=== PATIENT | male | born 1980 | race Caucasian/White ===

== ENCOUNTER 2020-10-27 14:42 | Outpatient (REF) | payer BC, SELFPAY ==
[2020-10-27 15:47] LABS: Blood Urea Nitrogen 18 mg/dL (9-16); Estimated Glomerular Filt Rate > 60
[2020-10-27 16:33] LABS: Erythrocyte Sedimentation Rate 5 MM/HR (0-15)
[2020-10-28 09:21] LABS: Lyme Abs Screen <0.90 index
== END 2020-10-27 14:43 | disposition home or self-care (01) ==
LOC: HO.LAB 14:42
PROVIDERS: Absent Provider Psychiatry & Neurology Neurology; PCP Internal Medicine; Visit Provider Internal Medicine
DX: G37.9 Demyelinating disease of central nervous system, unspecified (principal)
CPT/HCPCS: 36415; 82565; 84520; 85652; 86618

== ENCOUNTER → 2021-09-21 15:39 | Outpatient (REF) | payer BC, SELFPAY ==
--- NOTE | 2021-09-21 15:50 | ECG_ITS ---
Test Reason : chest pain Blood Pressure : / mmHG Vent. Rate : 060 BPM Atrial Rate : 060 BPM P-R Int : 160 ms QRS Dur : 102 ms QT Int : 382 ms P-R-T Axes : 065 078 061 degrees QTc Int : 382 ms Normal sinus rhythm Normal ECG No previous ECGs available Referred By: April Carroll Electronically Signed By:Dwaine Wang
== END ==
LOC: HO.CARD 15:39
PROVIDERS: PCP Internal Medicine; Visit Provider Nurse Practitioner Family
DX: R07.89 Other chest pain (principal)
CPT/HCPCS: 93005

== ENCOUNTER 2021-10-06 13:53 | Outpatient (REF) | payer BC, SELFPAY ==
--- NOTE | ~2021-10-06 | XR_ITS ---
EXAMINATION: XR hand RT min 3V CLINICAL INFORMATION: Pain COMPARISON: None TECHNIQUE: 3 views of the hand XR/XR hand RT min 3V FINDINGS/IMPRESSION: No fracture or dislocation. Joint spaces are maintained. No cortical erosion. Soft tissues are unremarkable.
== END 2021-10-06 13:54 | disposition home or self-care (01) ==
LOC: HO.XRAY 13:53
PROVIDERS: PCP Internal Medicine; Visit Provider Internal Medicine
DX: M79.641 Pain in right hand (principal)
CPT/HCPCS: 73130

== ENCOUNTER → 2021-11-02 07:54 | Outpatient (REF) | payer BC, SELFPAY ==
--- NOTE | 2021-11-02 07:58 | CA_ITS ---
Acquisition Time: 2021-11-02 07:57:47 Total Exercise Time: 00:12:00 Test Indications: Chest Pain Medications: LISINOPRIL Protocol: ERROL Max HR: 155 BPM 87% of Pred: 178 BPM Max BP: 190/088 mmHG Max Work Load: 13.4 METS Exercise stress test with exercise 12 min of errol protocol, achieving 87% MPHR, without anginal symptoms, without arrythmia, with normotensive response to exercise, without EKG changes meeting criteria for ischemia. There is nonspecific T wave abnormality in aVL only in recovery. Test reviewed with Dr Wang Referred By: April Carroll Overread By: AZUL JESUS
== END ==
LOC: HO.CARD 07:54
PROVIDERS: Visit Provider Nurse Practitioner Family
DX: R07.89 Other chest pain (principal)
CPT/HCPCS: 93017

== ENCOUNTER → 2021-11-11 13:58 | Outpatient (REF) | payer BC, SELFPAY ==
--- NOTE | 2021-11-11 14:06 | CA_ITS ---
Transthoracic Echocardiogram Patient (Last, First, Middle): Brandon Carreon M Gender: Male Date of : 1980 Age: 41 Procedure Date: 11/11/2021 Procedure Type: Transthoracic Echocardiogram Location: OP Height: 177.8 cm Weight: 90.72 kg BSA: 2.09 m2 Heart Rate: bpm BP: 144 / 88 mmHg Ripsawyer: LORETA Referring MD: April VALLADARES Symptoms: R01.1 - Cardiac murmur, unspecified Study Quality: Good ECG Rhythm: Sinus Conclusions: - The left ventricular systolic function is normal. The calculated ejection fraction is 67% by biplane method. - No obvious valvular pathology seen on this study. Findings Left Ventricle Normal left ventricular cavity size. There is normal left ventricular wall thickness. The left ventricular systolic function is normal. The calculated ejection fraction is 67% by biplane method. There is no evidence of regional wall motion abnormalities. Diastolic function is normal for age. Right Ventricle Normal right ventricular cavity size and systolic function. Atria Both atria are normal in size. Aortic Valve There is a normal trileaflet aortic valve. There is no aortic valve stenosis. There is no aortic valve regurgitation. Mitral Valve The mitral valve appears normal. There is no mitral valve regurgitation. There is no mitral valve stenosis. Pulmonic Valve The pulmonic valve was not well visualized. Tricuspid Valve Normal tricuspid valve structure. There is trace tricuspid valve regurgitation. The pulmonary artery systolic pressure is normal. Great Vessels The aortic annulus, sinuses of valsalva, and asc aorta are normal in size. Venous The inferior vena cava is normal in size and collapses greater than 50% with inspiration. Pericardium/Pleural There is no evidence of pericardial effusion. Prior Study Comparison No prior study available for comparison. Recommendations, Care & Conclusions No obvious valvular pathology seen on this study. Measurements 2D Linear Measurements IVSd: 0.95 0.6-0.9/0.6-1.0 cm LVIDd: 4.49 3.9-5.3/4.2-5.9 cm LVIDd Index: 2.15 2.4-3.2/2.2-3.1 cm/m2 LVIDs: 2.20 2.0-3.6 cm LVPWd: 0.98 0.7-1.1 cm LA Diam: 4.00 2.7-3.8/3.0-4.0 cm LAIDs Index: 1.91 1.5-2.3 cm/m2 LV Mass: 282.83 67-162/88-224 g LV Mass Index: 135.32 43-95/49-115 g/m2 LVOT Diam: 2.20 3.0+(-)1.3 cm 2D Systolic Function EF 4C: 68.10 >55% EF 2C: 65.60 >55% EF BiP: 67.40 >55% Mitral Valve MV Pk E: 0.86 MV PK A: 0.77 MV Decel Time: 235.00 E/A: 1.10 E'Lateral: 14.40 E'Medial: 6.31 E/E' Med: 13.70 E/E' Lat: 6.00 PHT: 69.00 MVA PHT: 3.19 Decel Stephenson: 3.67 Aortic Valve AoV Pk William: 1.81 AoV Mn William: 1.22 AoV VTI: 0.31 AoV Pk Grad: 13.00 Aov Mn Grad: 7.00 HASEEB Cont.VTI: 3.78 LVOT LVOT Pk William: 1.60 LVOT Mn William: 1.03 LVOT VTI: 0.31 LVOT Pk Grad: 10.00 LVOT Mn Grad: 5.00 LVOT Diam: 2.20 LVOT Area: 3.80 Diastolic Function MV Pk E: 0.86 MV Pk A: 0.77 E/A: 1.10 E'Medial: 6.31 E/E' Med: 13.70 E' Laterial: 14.40 E/E' Lat: 6.00 Right Ventricle TAPSE (mm): 24.40 TVS' William: 14.10 Tricuspid Valve TR Pk William: 1.26 TR Pk Grad: 6.00 RA Press: 3.00 RVSP: 9.00 Great Vessels Aorta Sinus of Valsalva: 3.59 2.0-3.[address] Ridge: 3.05 1.7-3.4 cm Ao Asc: 3.50 2.1-3.4 cm Updated in Other Vendor System with Status of Final Agustín Kevin MD electronically signed on 11/13/2021 12:19:58 PM with status of Final
== END ==
LOC: HO.CARD 13:58
PROVIDERS: Visit Provider Nurse Practitioner Family
DX: R01.1 Cardiac murmur, unspecified (principal)
CPT/HCPCS: 93306

== ENCOUNTER 2022-07-20 15:55 | Outpatient (REF) | payer BC, SELFPAY ==
[2022-07-20 16:10] LABS: MANUAL DIFF FLAG NO
[2022-07-20 17:24] LABS: Basophils Percent Auto 0.6 % (0-2); Eosinophils Absolute Auto 0.1 X10*3/uL (0.0-0.4); Eosinophils Percent Auto 1.6 % (0-4); Hemoglobin 15.5 g/dl (14.0-18.0); Imm Gran Abs Auto 0.02 X10*3/uL (0.00-0.03); Imm Gran Pct Auto 0.3 % (0.0-0.4); Lymphocytes Absolute Auto 3.1 X10*3/uL (1.2-4.9); Lymphocytes Percent Auto 44.4 % (20-40); Mean Corpuscular HGB Conc 35.2 g/dl (31.0-36.0); Mean Corpuscular Hemoglobin 31.8 pg (27.0-33.0); Mean Corpuscular Volume 90.2 fL (80.0-98.0); Mean Platelet Volume 10.3 fL (9.4-12.4); Monocytes Absolute Auto 0.6 X10*3/uL (0.1-1.2); Monocytes Percent Auto 9.1 % (2-11); Neutrophils Absolute Auto 3.1 x10*3/uL (2.0-8.3); Platelet Count 232 X10*3/uL (160-400); Red Blood Count 4.88 X10*6/uL (4.60-5.80); Red Cell Distribution Width 12.6 % (11.0-16.0); White Blood Count 6.9 X10*3/uL (4.8-10.8)
[2022-07-20 18:10] LABS: Alanine Aminotransferase 164 U/L (0-40); Albumin Level 5.1 g/dL (3.5-5.0); Alkaline Phosphatase 67 U/L (39-117); Anion Gap 12 (12-20); Aspartate Amino Transferase 75 U/L (5-37); Bilirubin Total 1.4 mg/dL (0.0-1.0); Blood Urea Nitrogen 20 mg/dL (9-16); Carbon Dioxide 29 mmol/L (22-29); Chloride 102 mmol/L (96-108); Cholesterol 135 mg/dL; Estimated Glomerular Filt Rate > 60; Glucose Fasting 75 mg/dL (60-99); HDL Cholesterol 43 mg/dL; LDL Cholesterol Calculated 78 mg/dl; Potassium 4.4 mmol/L (3.3-5.1); Sodium 139 mmol/L (135-145); TSH reflex Free T4 0.89 uIU/mL (0.32-4.0); Total Protein 7.6 g/dL (6.5-8.0); Triglycerides 70 mg/dL; Vitamin D 25-OH Total 23.4 ng/mL (>30)
[2022-07-20 18:22] LABS: Folate 14.4 ng/mL (> or = 4.0); Vitamin B12 572 pg/mL (200-900)
== END 2022-07-20 15:56 | disposition home or self-care (01) ==
LOC: HO.LAB 15:55
PROVIDERS: PCP Internal Medicine; Visit Provider Nurse Practitioner Family
DX: I10 Essential (primary) hypertension (principal); R07.89 Other chest pain; Z13.29 Encounter for screening for other suspected endocrine disorder; Z13.220 Encounter for screening for lipoid disorders
CPT/HCPCS: 36415; 80053; 80061; 82306; 82607; 82746; 84443; 85025

== ENCOUNTER 2022-07-22 16:12 | Outpatient (REF) | payer BC, SELFPAY ==
[2022-07-25 08:03] LABS: HBc Num1 0.07 S/CO (0.00-0.79); HBsAGNum1 0.28 S/CO (0.00-0.99); Hepatitis A Antibody IgM 0.14 Index (0-0.79); Hepatitis B Core Antibody Nonreactive (Nonreactive); Hepatitis B Surface Antigen Negative (Negative); ~HepC Num1 0.07 S/CO (0.00-0.79); ~Hepatitis A Antibody IgM Nonreactive (Nonreactive); ~Hepatitis B Surface Antibody NONREACTIVE (Nonreactive); ~Hepatitis C Antibody Nonreactive (Nonreactive)
== END 2022-07-22 16:13 | disposition home or self-care (01) ==
LOC: HO.LAB 16:12
PROVIDERS: PCP Internal Medicine; Visit Provider Nurse Practitioner Family
DX: R79.89 Other specified abnormal findings of blood chemistry (principal)
CPT/HCPCS: 36415; 82306; 86704; 86706; 86709; 86803; 87340

== ENCOUNTER 2022-08-22 08:27 | Outpatient (REF) | payer BC, SELFPAY ==
--- NOTE | ~2022-08-22 | US_ITS ---
EXAMINATION: US ABDOMEN LIMITED CLINICAL INFORMATION: Other specified abnormal findings of blood chemistry. COMPARISON: CT abdomen and pelvis with contrast 07/14/2019. TECHNIQUE: Real-time imaging of the right upper quadrant abdominal viscera. FINDINGS: PANCREAS: Obscured by bowel gas LIVER: The liver is normal in size. The liver contour is normal. Diffuse increased parenchymal echogenicity. Focal fatty sparing around the gallbladder. No focal hepatic lesion. There is no intrahepatic biliary duct dilatation seen. GALLBLADDER: The gallbladder is physiologically distended without evidence of stones, sludge, polyps, wall thickening or pericholecystic fluid. COMMON BILE DUCT: Normal in caliber measuring 0.3 cm in diameter. RIGHT KIDNEY: Normal. No hydronephrosis. No renal calculi or focal parenchymal lesions. The kidney measures 13.2 cm in maximum dimension. FREE FLUID: None. US/US abdomen limited IMPRESSION: 1. There is generalized increase in hepatic echotexture, consistent with fatty infiltration or hepatocellular disease. Please correlate clinically. Focal fatty sparing adjacent to gallbladder fossa. No focal hepatic mass or intrahepatic biliary duct dilatation is seen. 2. Pancreas obscured by bowel gas.
== END 2022-08-22 08:28 | disposition home or self-care (01) ==
LOC: HO.HMGCX 08:27
PROVIDERS: PCP Internal Medicine; Visit Provider Nurse Practitioner Family
DX: R79.89 Other specified abnormal findings of blood chemistry (principal)
CPT/HCPCS: 76705

== ENCOUNTER 2022-11-01 15:58 | Outpatient (REF) | payer BC, SELFPAY ==
[2022-11-01 16:17] LABS: MANUAL DIFF FLAG NO
[2022-11-01 17:11] LABS: Basophils Percent Auto 0.5 % (0-2); Eosinophils Absolute Auto 0.2 X10*3/uL (0.0-0.4); Hematocrit 43.6 % (42.0-52.0); Hemoglobin 15.3 g/dl (14.0-18.0); Imm Gran Abs Auto 0.04 X10*3/uL (0.00-0.03); Imm Gran Pct Auto 0.5 % (0.0-0.4); Lymphocytes Absolute Auto 3.2 X10*3/uL (1.2-4.9); Lymphocytes Percent Auto 41.7 % (20-40); Mean Corpuscular HGB Conc 35.1 g/dl (31.0-36.0); Mean Corpuscular Hemoglobin 32.1 pg (27.0-33.0); Mean Corpuscular Volume 91.4 fL (80.0-98.0); Mean Platelet Volume 10.7 fL (9.4-12.4); Monocytes Absolute Auto 0.7 X10*3/uL (0.1-1.2); Monocytes Percent Auto 9.1 % (2-11); Neutrophils Absolute Auto 3.5 x10*3/uL (2.0-8.3); Neutrophils Percent Auto 46.2 % (45-73); Platelet Count 212 X10*3/uL (160-400); Red Blood Count 4.77 X10*6/uL (4.60-5.80); Red Cell Distribution Width 12.8 % (11.0-16.0); White Blood Count 7.6 X10*3/uL (4.8-10.8)
[2022-11-01 17:23] LABS: Appearance Urine Clear; Color Urine Yellow; Glucose Urine UA Negative (Negative); Leukocyte Esterase Urine Negative (Negative); Nitrite Urine Negative (Negative); Specific Gravity - Urine >= 1.030 (1.005-1.025); Urine Blood Negative (Negative); Urine Ketones Negative (Negative); Urine Protein Negative (Neg-Trace)
[2022-11-01 17:28] LABS: Bacteria Urine None Seen (None Seen); Hyaline Casts Urine 0-2 /LPF (0-2); RBC Urine 0-2 /HPF (0-2); Squamous Epithelial Cell Urine 0-2 /HPF (0-2); WBC Urine 0-5 /HPF (0-5)
[2022-11-01 17:45] LABS: Alanine Aminotransferase 112 U/L (0-40); Albumin Level 4.8 g/dL (3.5-5.0); Alkaline Phosphatase 65 U/L (39-117); Anion Gap 13 (12-20); Aspartate Amino Transferase 53 U/L (5-37); Bilirubin Total 1.8 mg/dL (0.0-1.0); Blood Urea Nitrogen 15 mg/dL (9-16); Calcium 9.7 mg/dL (8.4-10.2); Carbon Dioxide 27 mmol/L (22-29); Chloride 107 mmol/L (96-108); Estimated Glomerular Filt Rate > 60; Glucose Random 71 mg/dL (60-115); Potassium 4.1 mmol/L (3.3-5.1); Sodium 143 mmol/L (135-145); Total Protein 7.3 g/dL (6.5-8.0)
[2022-11-01 17:53] LABS: Estimated Average Glucose 103 mg/dL; Hemoglobin A1c % 5.2 %
[2022-11-01 18:02] LABS: Thyroid Stimulating Hormone 1.73 uIU/mL (0.32-4.0)
== END 2022-11-01 15:59 | disposition home or self-care (01) ==
LOC: HO.LAB 15:58
PROVIDERS: PCP Internal Medicine; Visit Provider Internal Medicine
DX: G62.9 Polyneuropathy, unspecified (principal); K76.0 Fatty (change of) liver, not elsewhere classified; I10 Essential (primary) hypertension; R73.9 Hyperglycemia, unspecified
CPT/HCPCS: 36415; 80053; 81001; 83036; 84443; 85025

== ENCOUNTER 2022-12-19 09:41 | Outpatient (REF) | payer BC, SELFPAY ==
--- NOTE | ~2022-12-19 | US_ITS ---
EXAMINATION: US ABDOMEN COMPLETE CLINICAL INFORMATION: Left upper quadrant pain. Fatty liver. COMPARISON: Limited abdominal ultrasound 08/22/2022. CT abdomen and pelvis 07/14/2019. TECHNIQUE: Real-time imaging of the abdominal viscera. FINDINGS: PANCREAS: Normal. ABDOMINAL AORTA: The proximal, mid, and distal segments are normal in caliber. INFERIOR VENA CAVA: Visualized portions are normal. LIVER: The liver is normal in size. The liver contour is normal. Liver echotexture is increased probably representing fatty infiltration. No focal hepatic lesion. There is no intrahepatic biliary duct dilatation seen. GALLBLADDER: Normal. The gallbladder is physiologically distended without evidence of stones, sludge, polyps, wall thickening or pericholecystic fluid. COMMON BILE DUCT: Normal in caliber measuring 0.4 cm in diameter. RIGHT KIDNEY: Normal. No hydronephrosis. No renal calculi or focal parenchymal lesions. The kidney measures 13.2 cm in maximum dimension. LEFT KIDNEY: Normal. No hydronephrosis. No renal calculi or focal parenchymal lesions. The kidney measures 13.1 cm in maximum dimension. SPLEEN: The spleen is slightly enlarged. The spleen measures 15.1 cm in maximum dimension. FREE FLUID: None. US/US abdomen complete IMPRESSION: Slightly enlarged spleen. Echogenic liver probably representing fatty infiltration.
== END 2022-12-19 09:42 | disposition home or self-care (01) ==
LOC: HO.HMGCX 09:41
PROVIDERS: PCP Internal Medicine; Visit Provider Internal Medicine
DX: R10.12 Left upper quadrant pain (principal)
CPT/HCPCS: 76700

== ENCOUNTER → 2023-02-08 13:59 | Outpatient (BNVA) | payer BC, SELFPAY | PROVIDERS: PCP Internal Medicine; Visit Provider Internal Medicine ==

== ENCOUNTER 2023-02-10 11:30 | Outpatient (REF) | payer BC, SELFPAY ==
[2023-02-10 11:59] LABS: Prothrombin Time 11.3 SEC (10.0-13.1)
[2023-02-10 12:46] LABS: Iron 148 mcg/dL (45-160); Lactate Dehydrogenase 250 U/L (118-273); Percent Iron Saturation 49 % (15-50); Total Iron Binding Capacity 299 mcg/dL (228-428); Unsaturated Iron Binding 151 ug/dL
[2023-02-10 12:53] LABS: Ferritin 879 ng/mL (20-250)
[2023-02-13 15:04] LABS: Immunoglobulin A 239 mg/dL (47-310); Immunoglobulin G 897 mg/dL (600-1640)
[2023-02-13 21:09] LABS: Transglutaminase IgA <1.0 U/mL
[2023-02-14 13:59] LABS: Liver Kidney Microsomal Ab <=20.0 U (<=20.0); Smooth Muscle Antibody <20 U (<20)
[2023-02-16 13:23] LABS: Aldolase 11.5 U/L (<=8.1)
[2023-02-16 20:48] LABS: CK-BB None Detected (None Detected); CK-MB 0 % (<5); CK-MM 100 % (95-100); Creatine Kinase,Total,Serum 179 U/L (44-196)
[2023-02-22 09:28] LABS: Phosphatidylethanol 16:0-18:1 20 (H)
== END 2023-02-10 11:31 | disposition home or self-care (01) ==
LOC: HO.LAB 11:30
PROVIDERS: PCP Internal Medicine; Visit Provider Internal Medicine
DX: R79.89 Other specified abnormal findings of blood chemistry (principal)
CPT/HCPCS: 36415; 80321; 82085; 82552; 82728; 82784; 83540; 83615; 85610; 86015; 86364; 86376

== ENCOUNTER 2023-03-03 12:00 | Outpatient (REF) | payer BC, SELFPAY | END 2023-03-03 12:01 | disposition home or self-care (01) | LOC: HO.LAB 12:00 | PROVIDERS: Visit Provider Internal Medicine | DX: R79.89 Other specified abnormal findings of blood chemistry (principal) | CPT/HCPCS: 36415; 81256 ==

== ENCOUNTER 2023-03-24 16:26 | Outpatient (REF) | payer BC, SELFPAY ==
[2023-03-24 17:36] LABS: Alanine Aminotransferase 160 U/L (0-40); Albumin Level 4.8 g/dL (3.5-5.0); Alkaline Phosphatase 61 U/L (39-117); Anion Gap 12 (12-20); Aspartate Amino Transferase 69 U/L (5-37); Bilirubin Total 1.3 mg/dL (0.0-1.0); Blood Urea Nitrogen 16 mg/dL (9-16); Calcium 10.1 mg/dL (8.4-10.2); Carbon Dioxide 27 mmol/L (22-29); Chloride 108 mmol/L (96-108); Estimated Glomerular Filt Rate > 60; Glucose Random 75 mg/dL (60-115); Potassium 3.7 mmol/L (3.3-5.1); Sodium 143 mmol/L (135-145); Total Protein 7.9 g/dL (6.5-8.0)
== END 2023-03-24 16:27 | disposition home or self-care (01) ==
LOC: HO.LAB 16:26
PROVIDERS: PCP Internal Medicine; Visit Provider Internal Medicine
DX: R79.89 Other specified abnormal findings of blood chemistry (principal)
CPT/HCPCS: 36415; 80053

== ENCOUNTER 2023-03-27 15:56 | Outpatient (AMB) | payer BC, SELFPAY ==
[2023-03-27 16:00] VITALS: BP 145/89; PULSE 69; BMI 33.2
--- NOTE | 2023-03-27 16:00 | A.OFFVIS_ITS ---
Intake Vital Signs 03/27/23 16:00 Height 5 ft 10 in Weight 231 lb 7.766 oz BMI 33.2 BP 145/89 H Blood Pressure Location Rt brachial Position Sitting Pulse 69 Intake Visit Reasons: 6 week fu Intake Note: Brandon presents in the office today in 6 weeks follow up offatty liver. CC: Patient continues to have LUQ abdominal pain, nausea, and occasional heartburn. Pt d/c Omeprazole as he reports he did not see any difference while taking it. Denies other GI symptoms today. 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 fatty liver and LUQ pain. 02/08/23: Pt reports having intermittent episodes of sharp well localised LUQ pain that radiates to his back. While the index episode back in Jul was trigerred by food, subsequent episodes do not appear to have a definite food related trigger. Does note it more while driving. Gets better when he stretches his torso. Was seen by urgent care for the same earlier this year but could not take pantoprazole due to insurance coverage issues. Had an EGD through Dr Knowles 2019 that showed small hiatal hernia, but no gastritis, esophagitis, quiñones's. In addition, he was also noted to have elevated LFTs with ALT>AST. Pt drinks 1- 2/month. Smokes 0.5PPD. No OTC/CAM reported apart from a multivitamin. Does report has been noticing generalised muscle weakness more in his proximal muscle groups, unable to sustain an activity for more than a few mins for e.g even just brushing his teeth makes his arm muscles very fatigued. In terms of CRC screening - high risk due to fam hx of CRC in his mom. Last colo 2019 with benign polyps, next colo to be repeated around 03/2025. 03/27/23: Results reviewed. 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 Discussed that iron studies likely being driven by fatty liver, MRI pending which is able to differentiate between steatosis vs iron overload better than US Abd. Pt continues to report intermittent LUQ pain, triggered by certain activities such as driving/holding the steering wheel for too long, eating to his fill etc. He did have an elevated aldolase and Rheum evaluation is pending. [facility] Medical History Adult general medical exam Benign essential hypertension Decreased hearing of right ear Elevated LFTs GERD (gastroesophageal reflux disease) History of intravenous drug abuse Intermittent left-sided chest pain Irritable bowel disease Obesity (BMI 30-39.9) Rash and other nonspecific skin eruption Right hand pain Right otitis media Screening for hyperlipidemia Tobacco abuse Surgical History History of colonoscopy History of esophagogastroduodenoscopy (EGD) Family History Mother Cancer Colon cancer Father High blood pressure Other Substance abuse Social History Housing: House Alcohol intake: current Alcohol intake frequency: holidays/special occasions only Patient Tobacco Use Status: Former Tobacco user Tobacco use type: Cigarette Cigarette Packs Per Day: 1 Years Smoked: 25 years of smoking e-Cigarette/Vaping Use: Never Used Second Hand Smoke Exposure: Yes service: No Current occupational status: employed Cognitive needs: No Hearing needs: No Vision needs: Yes (glasses) Review of Systems Const All systems reviewed & are unremarkable except as noted in HPI and below Physical Exam Vital Signs: Last Vital Signs Pulse 69 03/27/23 16:00 BP 145/89 H 03/27/23 16:00 BMI result Body Mass Index 33.2 Gen appear: NAD HEENT: nonicteric, no cervical lymphadenopathy Chest: CTA CVS: Regular S1/S2 Abd: soft, nontender, nondistended, bowel sounds + Ext: no peripheral edema Neuro: A/Ox3, noted to move all extremities spontaneously Psych: interacting appropriately Assessment & Plan Assessment & Plan (1) Elevated LFTs: Code(s): R79.89 - Other specified abnormal findings of blood chemistry (2) Left upper quadrant abdominal pain: Code(s): R10.12 - Left upper quadrant pain (3) Family history of colon cancer: Code(s): Z80.0 - Family history of malignant neoplasm of digestive organs Plan 1. For elevated LFTs, based on work up so far appears to be consistent with fatty liver. MRI pending Also suspicion for myositis. Aldolase elevated. RHeum eval pending. 2. LUQ pain - likely gastritis/PUD related vs MSK. No splenomegaly on exam, however this will also be reviewed further on MRI as above. Trial of omeprazole 20mg once daily x 8 weeks did not help and therefore suspect more MSK related bernadette as triggered by activity. However, will proceed with luminal evaluation as well. EGD to be booked in the next few weeks, OFF ppi. 3. CRC screening Next colo due Mar 2025. Follow up after EGD. Coding Level of Care Code Est Pt Level 4 (21026) Diagnoses Elevated LFTs R79.89 Left upper quadrant abdominal pain R10.12 Family history of colon cancer Z80.0
== END 2023-03-27 16:55 | disposition home or self-care (01) ==
PROVIDERS: PCP Internal Medicine; Visit Provider Internal Medicine
DX: R79.89 Other specified abnormal findings of blood chemistry (principal); R10.12 Left upper quadrant pain; Z80.0 Family history of malignant neoplasm of digestive organs
CPT/HCPCS: 99214

== ENCOUNTER → 2023-03-27 15:56 | Outpatient (BNVA) | payer BC, SELFPAY | PROVIDERS: PCP Internal Medicine; Visit Provider Internal Medicine ==

== ENCOUNTER 2023-04-24 12:26 | Day surgery (SDC) | payer BC, SELFPAY ==
[2023-04-20 12:29] VITALS: BMI 33.1
[2023-04-24 13:27] VITALS: BP 153/96; PULSE 58; RESP 16; TEMP 36.7; O2SAT 97
--- NOTE | 2023-04-24 13:30 | HO.ANESPROP2 ---
Documented by User: Cordelia Rangel NP 04/21/23 10:58 HPI - Anesthesia Eval Consult details Narrative: 42yo M for Upper Endoscopy PMFSH Active Problems Active Problems: All Active Problems (Updated 02/17/23 @ 17:55 by Nieves Fox MD) Myositis (Acute) Elevated ferritin (Acute) Family history of colon cancer (Acute) Left upper quadrant abdominal pain (Acute) Fatty liver (Acute) Low vitamin D level (Acute) Generalized anxiety disorder (Acute) Heart murmur (Acute) Facial neuralgia (Acute) Peripheral neuropathy (Acute) Elevated LFTs (Acute) Benign essential hypertension (Acute) Irritable bowel disease (Acute) Tobacco abuse (Acute) GERD (gastroesophageal reflux disease) (Acute) Obesity (BMI 30-39.9) (Acute) Past Medical History Medical History Elevated LFTs Rash and other nonspecific skin eruption Adult general medical exam Decreased hearing of right ear Right otitis media Benign essential hypertension Right hand pain Screening for hyperlipidemia Intermittent left-sided chest pain History of intravenous drug abuse Irritable bowel disease Tobacco abuse GERD (gastroesophageal reflux disease) Obesity (BMI 30-39.9) Family History Family History Mother Cancer Colon cancer Father High blood pressure Other Substance abuse Surgical History Surgical History History of esophagogastroduodenoscopy (EGD) History of colonoscopy Social History Social History Housing: House Alcohol intake: current Alcohol intake frequency: holidays/special occasions only Patient Tobacco Use Status: Current everyday Tobacco user Tobacco use type: Cigarette Cigarette Packs Per Day: 1 Years Smoked: 25 years of smoking e-Cigarette/Vaping Use: Never Used Second Hand Smoke Exposure: Yes Use of substances other than those prescribed or required for medical reasons: Yes Have you been hit, kicked, punched, or otherwise hurt by someone within the past year? If so, by whom?: No Are you DNR?: No Advance Directives: No Advance Directives Information Provided: Yes service: No Current occupational status: employed Cognitive needs: No Hearing needs: No Vision needs: Yes (glasses) Meds Allergies Allergy/AdvReac Type Severity Reaction Status Date / Time No Known Allergies Allergy Verified 03/27/23 16:02 Exam Exam Date and Time: April 21, 2023 1054 Height,Weight and Vital Signs: Height 5 ft 10 in Weight 104.78 kg Pertinent Lab Results Pertinent Lab Results: Laboratory Tests 11/01/22 03/24/23 16:16 16:39 WBC 7.6 Hgb 15.3 Hct 43.6 Plt Count 212 Sodium 143 Potassium 3.7 Chloride 108 Carbon Dioxide 27 BUN 16 Creatinine 0.82 Narrative Narrative: ECHO 2021 Conclusions: - The left ventricular systolic function is normal. The calculated ejection fraction is 67% by biplane method. - No obvious valvular pathology seen on this study. Exercise Stress 2021 Protocol: ERROL Max HR: 155 BPM 87% of Pred: 178 BPM Max BP: 190/088 mmHG Max Work Load: 13.4 METS Exercise stress test with exercise 12 min of errol protocol, achieving 87% MPHR, without anginal symptoms, without arrythmia, with normotensive response to exercise, without EKG changes meeting criteria for ischemia. There is nonspecific T wave abnormality in aVL only in recovery. Test reviewed with Dr Wang Assessment and Plan Assessment Anesthesia Assessment: Chart Reviewed Documented by User: Dyana Wren DO 04/24/23 13:33 [facility] Past Medical History Medical History Elevated LFTs Rash and other nonspecific skin eruption Adult general medical exam Decreased hearing of right ear Right otitis media Benign essential hypertension Right hand pain Screening for hyperlipidemia Intermittent left-sided chest pain History of intravenous drug abuse Irritable bowel disease Tobacco abuse GERD (gastroesophageal reflux disease) Obesity (BMI 30-39.9) Family History Family History Mother Cancer Colon cancer Father High blood pressure Other Substance abuse Family history of problems with anesthesia: No Surgical History Surgical History History of esophagogastroduodenoscopy (EGD) History of colonoscopy History of Problems with Anesthesia: No Social History Social History Housing: House Alcohol intake: current Alcohol intake frequency: holidays/special occasions only Patient Tobacco Use Status: Current everyday Tobacco user Tobacco use type: Cigarette Cigarette Packs Per Day: 1 Years Smoked: 25 years of smoking e-Cigarette/Vaping Use: Never Used Second Hand Smoke Exposure: Yes Use of substances other than those prescribed or required for medical reasons: Yes Have you been hit, kicked, punched, or otherwise hurt by someone within the past year? If so, by whom?: No Are you DNR?: No Advance Directives: No Advance Directives Information Provided: Yes service: No Current occupational status: employed Cognitive needs: No Hearing needs: No Vision needs: Yes (glasses) Meds Allergies Allergy/AdvReac Type Severity Reaction Status Date / Time No Known Allergies Allergy Verified 03/27/23 16:02 Exam Exam Date and Time: April 24, 2023 1330 Height,Weight and Vital Signs: Height 5 ft 10 in Weight 104.78 kg Vital Signs Temperature 98.1 F 04/24/23 13:27 Pulse Rate 58 04/24/23 13:27 Respiratory Rate 16 04/24/23 13:27 Blood Pressure 153/96 H 04/24/23 13:27 Pulse Oximetry 97 04/24/23 13:27 Oxygen Delivery Method Room Air 04/24/23 13:27 Temperature 98.1 F 04/24/23 13:27 Pulse Rate 58 04/24/23 13:27 Respiratory Rate 16 04/24/23 13:27 Blood Pressure 153/96 H 04/24/23 13:27 Pulse Oximetry 97 04/24/23 13:27 Oxygen Delivery Method Room Air 04/24/23 13:27 Airway Mallampati Class: I TM Dist: >3cm Neck ROM: Full Loose/Missing/Broken Teeth: Yes (a few missing teeth) Heart: S1S2 Lungs: CTAB Assessment and Plan Assessment Anesthesia Assessment: Anesthesia Plan Discussed and Chart Reviewed Final Anesthetic Review Family History of Problems with Anesthesia: No History of Problems with Anesthesia: No NPO: Yes ASA Class: II Final Preanesthetic Review: No Changes in Pt Med Stat, Meds/Allgs Chart Reviewed, Consent Obtained/Reviewed and Anes Risks/Benef Reviewed Patient Risk: Low Procedure Risk: Low Anesthetic Plan Anesthetic Plan: MAC: and Agree w/ Assess. and Plan Disposition: Standard PACU
[2023-04-24] MEDS: Lactated Ringers 1,000 ML 100 ML IVCONT (13:54)
--- NOTE | 2023-04-24 14:03 | PC.NURSE ---
PATIENT IS WEARING CONTACTS. OR NURSE AWARE AND DR. WILL GAVE HER PERMISSION FOR PATIENT TO WEAR HIS CONTACT LENSES DURING THE PROCEDURE.
--- NOTE | 2023-04-24 14:29 | P.OP_ITS ---
Operative Note Operative Note Date of Service: 04/24/23 Narrative: Procedure: Esophagogastroduodenoscopy Endoscopist: Nieves Fox MD Indication: Left upper quadrant pain Anesthesia Provider: Allie Mares CRNA Anesthesia Type: MAC Instrument: Olympus [id number]-[id number] ?? EGD Procedure:?? The procedure, indications, preparation and potential complications were reviewed with the patient, who indicated understanding and gave written informed consent to proceed. A physical exam was performed. The endoscope was introduced through the mouth, and advanced to the second part of duodenum. The mucosa was carefully examined on slow withdrawal of the endoscope. The patient tolerated the procedure well. There were no immediate complications.? ? EGD Findings:? * Esophagus:? Normal mucosa noted in the entire esophagus. The Z line was at 40 cm with a salmon colored tongue extending up to 38.5 and an isolated island of salmon pink mucosa measuring 0.5 cm at 37 cm. Cold forceps biopsies were taken to r/o Dixon's esophagus. The GEJ itself had some erythema and erosions measuring < 5 mm. * Stomach:? Normal mucosa was noted in the stomach. Random cold forceps gastric biopsies were taken to rule out H Pylori infection. * Duodenum:? Normal mucosa was noted in the whole of the examined duodenum. Cold forceps biopsies were taken from duodenal bulb and second portion of the duodenum to rule out celiac sprue. ? EGD Impressions:? * Grade A esophagitis * Irregular Z line (biopsy) * Normal stomach (biopsy) * Normal duodenum (biopsy) ?? Recommendations:?? * Follow biopsy results. Our office will call or send a letter with results within 7-10 days. * Continue PPI therapy. * If H pylori +, patient will be prescribed eradication therapy followed by test of cure. * Avoid NSAIDs, etOH and smoking. Above has been reviewed with the patient.
--- NOTE | 2023-04-24 14:29 | MHC.SHP ---
Pre-Procedural Eval Section A Date of Service: 04/24/23 The History & Physical has been completed within 30 days and I have reviewed it.: Yes Section B Chief Complaint: Left upper quadrant pain Allergies: Allergies Allergy/AdvReac Type Severity Reaction Status Date / Time No Known Allergies Allergy Verified 03/27/23 16:02 Plan Diagnosis/Plan: Unchanged I have reviewed the history and physical and performed a pertinent physical examination on my patient. No changes have occurred unless specified. Time Spent With Patient Time: Total time managing care of this patient today ____ minutes.
[2023-04-24 14:35] VITALS: BP 114/62; PULSE 64; RESP 18; TEMP 36.6; O2SAT 95
[2023-04-24 14:50] VITALS: BP 119/65; PULSE 56; RESP 16; O2SAT 98
[2023-04-24 15:05] VITALS: BP 138/82; PULSE 59; RESP 14; TEMP 36.1; O2SAT 99
== END 2023-04-24 15:10 | disposition home or self-care (01) ==
PROVIDERS: PCP Internal Medicine; Visit Provider Internal Medicine
PROC: 0DJ08ZZ Inspection of Upper Intestinal Tract, Via Natural or Artificial Opening Endoscopic (ICD-10-PCS; CPT 43235; principal; 2023-04-24 14:40)
DX: K20.90 Esophagitis, unspecified without bleeding (principal); K22.9 Disease of esophagus, unspecified; R10.12 Left upper quadrant pain; R79.89 Other specified abnormal findings of blood chemistry; Z80.0 Family history of malignant neoplasm of digestive organs; K21.9 Gastro-esophageal reflux disease without esophagitis; I10 Essential (primary) hypertension; K76.0 Fatty (change of) liver, not elsewhere classified; K58.9 Irritable bowel syndrome, unspecified; E66.9 Obesity, unspecified; Z68.33 Body mass index [BMI] 33.0-33.9, adult; F17.210 Nicotine dependence, cigarettes, uncomplicated; Z79.899 Other long term (current) drug therapy
CPT/HCPCS: 43239; 88305; 88342

== ENCOUNTER → 2023-04-24 12:26 | Outpatient (BNV) | payer BC, SELFPAY | PROVIDERS: PCP Internal Medicine; Visit Provider Internal Medicine | DX: R10.12 Left upper quadrant pain (principal); K20.90 Esophagitis, unspecified without bleeding | CPT/HCPCS: 43239 ==

== ENCOUNTER 2023-05-01 08:07 | Outpatient (REF) | payer BC, SELFPAY ==
--- NOTE | ~2023-05-01 | MR_ITS ---
EXAMINATION: MR ABDOMEN WITHOUT AND WITH CONTRAST CLINICAL INFORMATION: Discomfort in the left upper quadrant COMPARISON: None available. TECHNIQUE: MR abdomen was performed without and with use of 10mL intravenous Gadavist. Postcontrast images are performed in multiphase dynamic sequences. Imaging was performed in 3 planes. FINDINGS: LUNG BASES: The visualized lung bases are unremarkable. LIVER, GALLBLADDER, AND BILIARY TREE: The liver is normal in size, smooth in contour, and drops signal intensity in in phase/out of phase sequences due to hepatic steatosis . No focal hepatic lesion or biliary ductal dilatation is present. The gallbladder is unremarkable with no evidence of gallbladder wall thickening, or obvious pericholecystic inflammatory changes. PANCREAS: Unremarkable. SPLEEN: Enlarged measured 15.5 cm of normal signal intensity ADRENAL GLANDS: Normal. KIDNEYS AND URETERS: The kidneys are normal in size, shape, and enhance symmetrically. No hydronephrosis. No perinephric stranding. GASTROINTESTINAL TRACT: No bowel obstruction. No ascites or fluid collection. ABDOMINAL WALL: No significant hernia is appreciated. LYMPH NODES: No lymphadenopathy. VASCULAR: Unremarkable. OSSEOUS STRUCTURES: Marrow signal normal. MR/MR abdomen wo/w con IMPRESSION: 1. Hepatic steatosis. 2. Splenomegaly.
[2023-05-01] MEDS: gadobutroL 10 ML VIAL IVPUSH (09:45)
== END 2023-05-01 08:08 | disposition home or self-care (01) ==
LOC: HO.MRI 08:07
PROVIDERS: PCP Internal Medicine; Visit Provider Internal Medicine
DX: R79.89 Other specified abnormal findings of blood chemistry (principal)
CPT/HCPCS: 74183; A9585

== ENCOUNTER 2023-05-08 11:27 | Outpatient (AMB) | payer BC, SELFPAY ==
--- NOTE | 2023-05-08 11:28 | A.OFFVIS_ITS ---
Intake Intake Visit Reasons: s/p egd Intake Note: Brandon presents in the office as a egd follow up and MRI. CC: He states that he is not having any concerns since his procedure. More so would like results to the MRI. Allergies No Known Allergies Allergy (Verified 05/08/23 11:28) HPI HPI Comments History of Present Illness Details 42 y.o M with PMH of GERD, HTN, smoking, fam hx of CRC, who is here for ? fatty liver and LUQ pain. 02/08/23: Pt reports having intermittent episodes of sharp well localised LUQ pain that radiates to his back. While the index episode back in Jul was trigerred by food, subsequent episodes do not appear to have a definite food related trigger. Does note it more while driving. Gets better when he stretches his torso. Was seen by urgent care for the same earlier this year but could not take pantoprazole due to insurance coverage issues. Had an EGD through Dr Knowles 2019 that showed small hiatal hernia, but no gastritis, esophagitis, quiñones's. In addition, he was also noted to have elevated LFTs with ALT>AST. Pt drinks 1- 2/month. Smokes 0.5PPD. No OTC/CAM reported apart from a multivitamin. Does report has been noticing generalised muscle weakness more in his proximal muscle groups, unable to sustain an activity for more than a few mins for e.g even just brushing his teeth makes his arm muscles very fatigued. In terms of CRC screening - high risk due to fam hx of CRC in his mom. Last colo 2019 with benign polyps, next colo to be repeated around 03/2025. 03/27/23: Results reviewed. 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 Discussed that iron studies likely being driven by fatty liver, MRI pending which is able to differentiate between steatosis vs iron overload better than US Abd. Pt continues to report intermittent LUQ pain, triggered by certain activities such as driving/holding the steering wheel for too long, eating to his fill etc. He did have an elevated aldolase and Rheum evaluation is pending. 04/24/23: EGD * Grade A esophagitis * Irregular Z line (biopsy) * Normal stomach (biopsy) * Normal duodenum (biopsy) Path: A. Duodenum, biopsy: Duodenal mucosa with predominantly preserved villi and no specific change. B. Stomach, random, biopsy: Gastric antral and body mucosa with congestion and focal minimal chronic inactive inflammation; negative for H pylori, intestinal metaplasia and dysplasia. C. Esophagus, irregular Z-line, biopsy: Squamous mucosa with hyperplasia, focal intraepithelial neutrophils, and rare eosinophils (up to 1 per high-power field) consistent with esophagitis, and columnar mucosa with hyperplastic changes and mild inflammation; negative for intestinal metaplasia and dysplasia. MRI 05/01/23: LIVER, GALLBLADDER, AND BILIARY TREE: The liver is normal in size, smooth in contour, and drops signal intensity in in phase/out of phase sequences due to hepatic steatosis . No focal hepatic lesion or biliary ductal dilatation is present. The gallbladder is unremarkable with no evidence of gallbladder wall thickening, or obvious pericholecystic inflammatory changes. PANCREAS: Unremarkable. SPLEEN: Enlarged measured 15.5 cm of normal signal intensity 05/08/23: Pt booked as televisit. Reports continued intermittent LUQ pain sx related to certain postures and activities as above. EGD and MRI results reviewed with the pt. Pt now worried about the finding of enlarged spleen and wonders if anything else could be contributing to the splenomegaly besides liver disease. Fib 4 score 1.11. [facility] Medical History Elevated LFTs Rash and other nonspecific skin eruption Adult general medical exam Decreased hearing of right ear Right otitis media Benign essential hypertension Right hand pain Screening for hyperlipidemia Intermittent left-sided chest pain History of intravenous drug abuse Irritable bowel disease Tobacco abuse GERD (gastroesophageal reflux disease) Obesity (BMI 30-39.9) Surgical History History of esophagogastroduodenoscopy (EGD) History of colonoscopy Family History Mother Cancer Colon cancer Father High blood pressure Other Substance abuse Social History Housing: House Alcohol intake: current Alcohol intake frequency: holidays/special occasions only Patient Tobacco Use Status: Current everyday Tobacco user Tobacco use type: Cigarette Cigarette Packs Per Day: 1 Years Smoked: 25 years of smoking e-Cigarette/Vaping Use: Never Used Second Hand Smoke Exposure: Yes service: No Current occupational status: employed Cognitive needs: No Hearing needs: No Vision needs: Yes (glasses) Review of Systems Const All systems reviewed & are unremarkable except as noted in HPI and below Physical Exam Vital Signs: video visit: non toxic appearing no overt resp distress speaking in full sentences Assessment & Plan Assessment & Plan (1) Elevated LFTs: Code(s): R79.89 - Other specified abnormal findings of blood chemistry (2) Left upper quadrant abdominal pain: Code(s): R10.12 - Left upper quadrant pain (3) Family history of colon cancer: Code(s): Z80.0 - Family history of malignant neoplasm of digestive organs Plan 1. Elevated LFTs: Likely a combination of etOH and nonetOH fatty liver/PA. MRI findings reviewed. No iron signals as expected as pt carrier only based on DNA analysis. Low suspicion for advanced fibrosis at this time given low Fib-4 score of 1.11. Pt was extensively counseled on control of etOH intake as well as metabolic factors inlcuding weight loss of at least 10% of TBW over next 6 months 2. LUQ pain - splenomegaly: Reviewed that LUQ pain is most likely due to splenomegaly which in turn is most likely related to NAFLD/PA. In this specific population, can be seen even wi thout advanced fibrosis and in fact does not correlate with histological grade of fibrosis. He wonders if the spleen will return to normal size with improvement in fatty liver but was advised that since other factors also contribute to splenomegaly in PA, it is difficult to predict at this time. Given pt's significant worry about other causes and previously abnormal CBC with lymphocytosis, will refer to Heme/Onc. 3. Easy muscle fatiguability As part of work up for elevated LFTs in the context of muscle weakness, aldolase was checked which was elevated. Rheum eval pending. 4. CRC screening Hx of FOBT positive in 2018, s/p colo [address] Knowles (benign polyps). Next colo due Mar 2025 due to fam hx of CRC in mother. Follow up in 6 months for elevated LFTs Orders: Referrals Hematology & Oncology Referral R16.1 - Splenomegaly, not elsewhere classified Telehealth Telehealth Location of provider rendering services: practice address Location of patient: address on file Patient Identification confirmed using: Name, : Yes Telehealth method: video Patient verbally consented to treatment: Yes Patient verbally consented to billing insurance company: Yes Patient informed of any privacy concerns related to visit: Yes Minutes spent on Phone/Video with Pt.: 15 Coding Level of Care Code Tele Est Pt Level 4 (65041) Diagnoses Elevated LFTs R79.89 Left upper quadrant abdominal pain R10.12 Family history of colon cancer Z80.0
== END 2023-05-08 14:09 | disposition home or self-care (01) ==
LOC: HO.HGI 11:27
PROVIDERS: PCP Internal Medicine; Visit Provider Internal Medicine
DX: R10.12 Left upper quadrant pain (principal); R74.01 Elevation of levels of liver transaminase levels; Z80.0 Family history of malignant neoplasm of digestive organs
CPT/HCPCS: 99214

== ENCOUNTER → 2023-05-08 11:27 | Outpatient (BNVA) | payer BC, SELFPAY | PROVIDERS: PCP Internal Medicine; Visit Provider Internal Medicine ==

== ENCOUNTER → 2023-06-12 14:13 | Outpatient (BNV) | payer BC, SELFPAY | PROVIDERS: PCP Internal Medicine; Visit Provider Internal Medicine Medical Oncology | DX: R79.89 Other specified abnormal findings of blood chemistry (principal); R16.1 Splenomegaly, not elsewhere classified | CPT/HCPCS: 99204 ==

== ENCOUNTER 2023-08-17 08:34 | Outpatient (AMB) | payer BC, SELFPAY ==
--- NOTE | 2023-08-17 08:38 | MHC.OFFVIS ---
Intake Vital Signs 08/17/23 08:39 Height 5 ft 10 in BP 166/80 H Blood Pressure Location Rt brachial Position Sitting Pulse 79 Pulse Source Pulse Oximeter Temp 97.0 F Temp Source Skin Pulse Oximetry (%) 99 Intake Visit Reasons: Myositis Intake Note: New pt presents today for Myositis consult. C/o muscle pain, describes pain as burning. States symptoms have been ongoing for many years, approx 5 years. Fm hx of scleroderma in mother who is B[place]er Resistance Required: No Accompanied by: Self / Same As Patient Allergies No Known Allergies Allergy (Verified 08/17/23 08:46) Medication List - Last Reconciled 08/17/23 by Iwona Dc MD amlodipine 2.5 mg PO DAILY blood pressure monitor As directed lisinopril 20 mg PO DAILY HPI HPI Comments History of Present Illness Details This is a 42-year-old male who presents for evaluation of myopathy. His labs showed elevated aldolase. For 4-5 years patient has been having episodes of arm burning with doing minor activities such as brushing his teeth or holding the steering wheel. He feels as if his muscles burn from working out. He does not feel weak however. He feels that he is strong as a bull denies any difficulty getting up from toilet seat, going up and down the stairs. 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 He denies any fevers, weight loss, skin rashes. Denies any cough or shortness of breath. Mentions that his mother had scleroderma for at least 20 years and at age 62 from colon cancer. [facility] Medical History (Updated 08/17/23 @ 09:09 by Iwona Dc MD) Elevated LFTs Rash and other nonspecific skin eruption Adult general medical exam Decreased hearing of right ear Right otitis media Benign essential hypertension Right hand pain Screening for hyperlipidemia Intermittent left-sided chest pain History of intravenous drug abuse Irritable bowel disease Tobacco abuse GERD (gastroesophageal reflux disease) Obesity (BMI 30-39.9) Surgical History History of esophagogastroduodenoscopy (EGD) History of colonoscopy Family History Mother Cancer Colon cancer Scleroderma Father High blood pressure Other Substance abuse Social History Housing: House Alcohol intake: current Alcohol intake frequency: holidays/special occasions only Patient Tobacco Use Status: Current everyday Tobacco user Tobacco use type: Cigarette Cigarette Packs Per Day: 1 Years Smoked: 25 years of smoking e-Cigarette/Vaping Use: Never Used Second Hand Smoke Exposure: Yes service: No Current occupational status: employed Cognitive needs: No Hearing needs: No Vision needs: Yes (glasses) Review of Systems Const Denies fever(s), Denies weakness and Denies weight loss GI Reports heartburn Musc Details: Muscle burning Denies arthralgias and Denies muscle weakness Neuro Denies weakness Physical Exam Vital Signs: Last Vital Signs Temp 97.0 F 08/17/23 08:39 Pulse 79 08/17/23 08:39 BP 166/80 H 08/17/23 08:39 Pulse Ox 99 08/17/23 08:39 Const General: cooperative, healthy appearing and comfortable Nutritional Appearance: overweight Orientation/consciousness: patient oriented x3 Limitations: no limitations HEENT Head: Yes normocephalic and Yes atraumatic Mouth: moist mucous membranes Resp Effort & Inspection: normal respiratory effort and able to speak in complete sentences Auscultation: clear to auscultation bilaterally Cardio Rate: regular rate Rhythm: regular rhythm GI Inspection: No distended Palpation (GI): Soft to palpation Skin General skin exam: no rashes or lesions noted Neuro General: patient oriented x3 Extrem Other: No active synovitis Normal nailfold capillaroscopy No dermatomyositis skin rashes such as heliotrope rash, V neck, Gottron's papules, Shawl sign Muscle strength 5/5 all 4 proximal muscle groups Assessment & Plan Assessment & Plan (1) Elevated LFTs: Code(s): R79.89 - Other specified abnormal findings of blood chemistry Plan: This is a 42-year-old male who presents for evaluation of myopathy in the context of elevated aldolase. He was recently diagnosed with PA. Upon evaluation patient has arm muscle burning with light activities, he feels that his muscles are pretty strong however. Upon evaluation there is no proximal muscle weakness. His labs showed elevated aldolase, elevated ALT more than AST, normal CPK. There are no features of systemic autoimmune disease. I do not see any signs of myositis. His elevated aldolase is likely coming from his liver disease. No further workup is needed Interestingly patient's mother had scleroderma. I do not see any features of scleroderma and no further workup is needed. Advised patient to return to clinic if he has any new symptoms. Plan I spent 30 minutes reviewing patient's chart, evaluating patient, counseling patient and documenting in the chart Coding Level of Care Code New Pt Level 3 (80740) Diagnoses Elevated LFTs R79.89
[2023-08-17 08:39] VITALS: BP 166/80; PULSE 79; TEMP 36.1; O2SAT 99
== END 2023-08-17 09:05 | disposition home or self-care (01) ==
PROVIDERS: PCP Internal Medicine; Visit Provider Student in an Organized Health Care Education/Training Program
DX: R79.89 Other specified abnormal findings of blood chemistry (principal)
CPT/HCPCS: 99203

== ENCOUNTER → 2023-08-17 08:34 | Outpatient (BNVA) | payer BC, SELFPAY | PROVIDERS: PCP Internal Medicine; Visit Provider Student in an Organized Health Care Education/Training Program ==

== ENCOUNTER 2023-09-18 15:22 | Outpatient (AMB) | payer BC, SELFPAY ==
--- NOTE | 2023-09-18 15:24 | A.OFFVIS_ITS ---
Intake Vital Signs 09/18/23 15:25 Height 5 ft 10 in Weight 231 lb 7.766 oz BMI 33.2 BP 164/93 H Blood Pressure Location Lt brachial Position Sitting Pulse 72 Intake Visit Reasons: follow up fatty liver Intake Note: Brandon presents in the office today in 6 months follow up of fatty liver. CC: He states he continues having LUQ pain from around his ribs. He states the pain is annoying and he's had it for over a year now. Denies other GI symptoms or concerns today. 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 fatty liver and LUQ pain. 02/08/23: Pt reports having intermittent episodes of sharp well localised LUQ pain that radiates to his back. While the index episode back in Jul was trigerred by food, subsequent episodes do not appear to have a definite food related trigger. Does note it more while driving. Gets better when he stretches his torso. Was seen by urgent care for the same earlier this year but could not take pantoprazole due to insurance coverage issues. Had an EGD through Dr Knowles 2019 that showed small hiatal hernia, but no gastritis, esophagitis, quiñones's. In addition, he was also noted to have elevated LFTs with ALT>AST. Pt drinks 1- 2/month. Smokes 0.5PPD. No OTC/CAM reported apart from a multivitamin. Does report has been noticing generalised muscle weakness more in his proximal muscle groups, unable to sustain an activity for more than a few mins for e.g even just brushing his teeth makes his arm muscles very fatigued. In terms of CRC screening - high risk due to fam hx of CRC in his mom. Last colo 2019 with benign polyps, next colo to be repeated around 03/2025. 03/27/23: Results reviewed. 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 Discussed that iron studies likely being driven by fatty liver, MRI pending which is able to differentiate between steatosis vs iron overload better than US Abd. Pt continues to report intermittent LUQ pain, triggered by certain activities such as driving/holding the steering wheel for too long, eating to his fill etc. He did have an elevated aldolase and Rheum evaluation is pending. 04/24/23: EGD * Grade A esophagitis * Irregular Z line (biopsy) * Normal stomach (biopsy) * Normal duodenum (biopsy) Path: A. Duodenum, biopsy: Duodenal mucosa with predominantly preserved villi and no specific change. B. Stomach, random, biopsy: Gastric antral and body mucosa with congestion and focal minimal chronic inactive inflammation; negative for H pylori, intestinal metaplasia and dysplasia. C. Esophagus, irregular Z-line, biopsy: Squamous mucosa with hyperplasia, focal intraepithelial neutrophils, and rare eosinophils (up to 1 per high-power field) consistent with esophagitis, and columnar mucosa with hyperplastic changes and mild inflammation; negative for intestinal metaplasia and dysplasia. MRI 05/01/23: LIVER, GALLBLADDER, AND BILIARY TREE: The liver is normal in size, smooth in contour, and drops signal intensity in in phase/out of phase sequences due to hepatic steatosis . No focal hepatic lesion or biliary ductal dilatation is present. The gallbladder is unremarkable with no evidence of gallbladder wall thickening, or obvious pericholecystic inflammatory changes. PANCREAS: Unremarkable. SPLEEN: Enlarged measured 15.5 cm of normal signal intensity 05/08/23: Pt booked as televisit. Reports continued intermittent LUQ pain sx related to certain postures and activities as above. EGD and MRI results reviewed with the pt. Pt now worried about the finding of enlarged spleen and wonders if anything else could be contributing to the splenomegaly besides liver disease. Fib 4 score 1.11. 09/18/23: Seen by Heme and Rheum with essentially negative work up for enlarged spleen and elevated aldolase - both likely due to fatty liver. Pt cont to report localised pain in his LUQ which is superficial and triggered by certain movements. [facility] Medical History Elevated LFTs Rash and other nonspecific skin eruption Adult general medical exam Decreased hearing of right ear Right otitis media Benign essential hypertension Right hand pain Screening for hyperlipidemia Intermittent left-sided chest pain History of intravenous drug abuse Irritable bowel disease Tobacco abuse GERD (gastroesophageal reflux disease) Obesity (BMI 30-39.9) Surgical History History of esophagogastroduodenoscopy (EGD) History of colonoscopy Family History Mother Cancer Colon cancer Scleroderma Father High blood pressure Other Substance abuse Social History Housing: House Alcohol intake: current Alcohol intake frequency: holidays/special occasions only Patient Tobacco Use Status: Current everyday Tobacco user Tobacco use type: Cigarette Cigarette Packs Per Day: 1 Years Smoked: 25 years of smoking e-Cigarette/Vaping Use: Never Used Second Hand Smoke Exposure: Yes service: No Current occupational status: employed Cognitive needs: No Hearing needs: No Vision needs: Yes (glasses) Review of Systems Const All systems reviewed & are unremarkable except as noted in HPI and below Physical Exam Vital Signs: Last Vital Signs Pulse 72 09/18/23 15:25 BP 164/93 H 09/18/23 15:25 BMI result Body Mass Index 33.2 Const General: cooperative and healthy appearing Orientation/consciousness: patient oriented x3 HEENT Head: Yes normocephalic Chest Chest palpation & inspection: normal inspection of the chest Resp Effort & Inspection: normal respiratory effort GI Inspection: Yes normal to inspection and Yes obesity Palpation (GI): No hepatosplenomegaly present Neuro General: patient oriented x3 Extrem General: Yes normal to inspection Office Procedures Therapeutic Injection Therapeutic Injection Details: Site was marked and prepped with alcohol swab. While lightly pinching the skin a 21g 1.5inch needle was inserted perpendicularly. 3ml of 1% lidocaine was injected at the site to confirm appropriate location and for local anesthesia. This was then followed with 1ml of Triamcinolone (40mg). Minimal bleeding was noted at the end of procedure. A band aid was applied. [id number] Point Injection 1 or 2 sites All charges added?: Additional procedure code (CPT) needed Assessment & Plan Assessment & Plan (1) Left upper quadrant abdominal pain: Code(s): R10.12 - Left upper quadrant pain (2) Family history of colon cancer: Code(s): Z80.0 - Family history of malignant neoplasm of digestive organs Plan 1. LUQ pain - splenomegaly: Reviewed that LUQ pain is most likely due to splenomegaly which in turn is most likely related to NAFLD/PA. In this specific population, can be seen even witout advanced fibrosis and in fact does not correlate with histological grade of fibrosis. Since also appears to have postural relation pain also likely MSK. Not typical location for ACNES but pt interested in trigger point injection to see if that will resolve the pain. Trigger point inj performed as above. 2. CRC screening Hx of FOBT positive in 2018, s/p colo [address] Knowles (benign polyps). Next colo due Mar 2025 due to fam hx of CRC in mother. Follow up in 3 months for trigger point inj Coding Level of Care Code Est Pt Level 4 (12001) Diagnoses Left upper quadrant abdominal pain R10.12 Family history of colon cancer Z80.0 CPT Codes Therapeutic Injection - Ther Injection 1: [id number] Point Injection 1 or 2 sites ([id number])
[2023-09-18 15:25] VITALS: BP 164/93; PULSE 72; BMI 33.2
== END 2023-09-18 16:55 | disposition home or self-care (01) ==
PROVIDERS: PCP Internal Medicine; Visit Provider Internal Medicine
DX: R10.12 Left upper quadrant pain (principal); Z80.0 Family history of malignant neoplasm of digestive organs
CPT/HCPCS: 20552; 99214

== ENCOUNTER → 2023-09-18 15:22 | Outpatient (BNVA) | payer BC, SELFPAY | PROVIDERS: PCP Internal Medicine; Visit Provider Internal Medicine | DX: R10.12 Left upper quadrant pain (principal); R16.1 Splenomegaly, not elsewhere classified; Z80.0 Family history of malignant neoplasm of digestive organs | CPT/HCPCS: 20552; J3301 ==

== ENCOUNTER 2023-10-03 16:07 | Outpatient (AMB) | payer BC, SELFPAY ==
[2023-10-03 16:13] VITALS: BP 138/92; PULSE 77; O2SAT 99; BMI 32.7
--- NOTE | 2023-10-03 16:13 | MHC.PC.OV ---
Vital Signs 10/03/23 16:13 Height 5 ft 10 in Weight 228 lb BMI 32.7 BP 138/92 H Blood Pressure Location Lt brachial Position Sitting Pulse 77 Pulse Source Pulse Oximeter Pulse Oximetry (%) 99 Oxygen Delivery Method Room Air Intake Visit Reasons: Annual PE Intake Note: Patient is here today for a physical. Venereal Disease Control Head Required: No Allergies No Known Allergies Allergy (Verified 10/03/23 16:14) Medication List - Last Reconciled 10/03/23 by Carlos Cole MD amlodipine 5 mg PO DAILY blood pressure monitor As directed lisinopril 20 mg PO DAILY Tobacco use date assessed: 10/03/23 Dental Screening Dental Screen Date: 10/03/23 Did you have a dental visit in the last 12 months?: Yes Did you have a dental problem in the last 6 months where you did not have access to dental care?: No Was dental information given to patient?: Patient has dentist HPI Annual PE HPI Details 43-year-old obese male smoker with fatty liver GERD hypertension generalized anxiety disorder coming in for physical exam last seen in November 2022. Patient follows up with Gastroenterology September 2023 due to left upper quadrant pain has had an EGD 2020 small hiatal hernia no gastritis colonoscopy also done at that time benign polyps and advised March 2025 repeat has splenomegaly from NAFLD do the elevated LFT and aldolase patient was sent to rheumatology also no features of systemic autoimmune disease. Patient has followed up with Hematology-Oncology June having elevated ferritin PFSH Medical History Elevated LFTs Rash and other nonspecific skin eruption Adult general medical exam Decreased hearing of right ear Right otitis media Benign essential hypertension Right hand pain Screening for hyperlipidemia Intermittent left-sided chest pain History of intravenous drug abuse Irritable bowel disease Tobacco abuse GERD (gastroesophageal reflux disease) Obesity (BMI 30-39.9) Surgical History History of esophagogastroduodenoscopy (EGD) History of colonoscopy Family History Mother Cancer Colon cancer Scleroderma Father High blood pressure Other Substance abuse Social History (Updated 10/03/23 @ 17:12 by Carlos Cole MD) Housing: House Alcohol intake: current Alcohol intake frequency: holidays/special occasions only Comment: once a month 6 pack Patient Tobacco Use Status: Current everyday Tobacco user Tobacco use type: Cigarette Cigarette Packs Per Day: 1 Years Smoked: 25 years of smoking e-Cigarette/Vaping Use: Never Used Second Hand Smoke Exposure: Yes service: No Current occupational status: employed Cognitive needs: No Hearing needs: No Vision needs: Yes (glasses) Questionnaire PHQ-9 Over the last 2 weeks, how often have you been bothered by any of the following problems? 1. Little interest or pleasure in doing things: not at all 2. Feeling down, depressed, or hopeless: not at all 3. Trouble falling or staying asleep, or sleeping too much: not at all 4. Feeling tired or having little energy: not at all 5. Poor appetite or overeating: not at all 6. Feeling bad about yourself - or that you are a failure or have let yourself or your family down: not at all 7. Trouble concentrating on things, such as reading the newspaper or watching television: not at all 8. Moving or speaking so slowly that other people could have noticed. Or the opposite - being so fidgety or restless that you have been moving around a lot more than usual: not at all 9. Thoughts that you would be better off or of hurting yourself in some way: not at all Total score: 0 Depression Screening Interpretation: Negative Depression Screening Done: Yes Source: Developed by Drs. Ke Navarro, Keisha Miranda, Anthony Washington and colleagues, with an educational keisha from [employer]. Thrive Questionnaire Date Thrive assessed: 10/03/23 I am a: Patient What is your living situation today?: I have a steady place to live Within the past 12 months, did the food you bought not last and you didn't have the money to get more?: Never true Within the past 12 months, did you worry whether your food would run out before you got money to buy more?: Never true Do you have trouble paying for medicines?: No Do you have trouble getting transportation to medical appointments?: No Do you have trouble paying your heating and electricity bill?: No Do you have trouble taking care of your child, family member or friend?: No Do you have trouble with day-to-day activities such as bathing, preparing meals, shopping, managing finances, etc.?: No Are you currently unemployed and looking for a job?: No Are you interested in more education?: No Please select the resources that you would like help with: None THRIVE Score: 0 AUDIT C Alcohol Use Questionnaire (AUDIT-C) 1. How often do you have a drink containing alcohol?: Monthly or less 2. How many drinks containing alcohol do you have on a typical day when you are drinking?: 1 or 2 3. How often do you have six or more drinks on one occasion?: Never Total Score: 1 Score Reviewed/Action Taken: No ÁNGELA-7 AMB Questionnaire ÁNGELA-7 Date ÁNGELA - 7 assessed: 10/03/23 Feeling nervous, anxious, or on edge: 0 = Not at all Not being able to stop or control worryin = Not at all Worrying too much about different things: 0 = Not at all Trouble relaxin = Not at all Being so restless that it is hard to sit still: 0 = Not at all Becoming easily annoyed or irritable: 0 = Not at all Feeling afraid as if something awful might happen: 0 = Not at all Total ÁNGELA-7 score (0-4 normal; 5-9 mild; 10-14 moderate; 15-21 severe): 0 Source: Developed by Drs. Ke Navarro, Keisha Miranda, Anthony Washington and colleagues, with an educational keisha from [employer]. Review of Systems Const Denies poor appetite and Denies weakness Eyes Denies no additional complaints ENT Reports Normal hearing present, Denies dizziness, Denies nasal congestion, Denies tinnitus and Denies sore throat Card Denies chest pain, Denies syncope, Denies rapid heart rate and Denies dyspnea Resp Denies cough and Denies dyspnea GI Denies change in stool character, Reports constipation, Denies diarrhea, Denies nausea and Denies vomiting Denies dysuria and Denies urinary frequency Neuro Reports Normal hearing present, Denies confusion, Denies dizziness, Denies syncope and Denies weakness Psych Denies confusion Physical exam (Primary Care) Vital Signs: Last Vital Signs Pulse 77 10/03/23 16:13 BP 138/92 H 10/03/23 16:13 Pulse Ox 99 10/03/23 16:13 Oxygen Delivery Method Room Air 10/03/23 16:13 BMI result Body Mass Index 32.7 Tobacco/Smoking Status: Tobacco use Status Tobacco use date assessed 10/03/23 10/03/23 16:15 Patient Tobacco Use Status Current everyday Tobacco 10/03/23 16:15 Tobacco use type Cigarette 10/03/23 16:15 e-Cigarette/Vaping Use Never Used 10/03/23 16:15 PHQ-9: PHQ-9 Score PHQ-9: Total score 0 10/03/23 16:20 Depression Screening Interpretation: Negative Thrive Assessment: Date of Thrive Assessment Date Thrive assessed 10/03/23 10/03/23 16:15 Const General: alert and awake; No confusion Orientation/consciousness: No confusion HENMT Head: Yes normocephalic Ears: external ears normal and TM's normal bilaterally Face and sinus: Yes normal facial exam Mouth: moist mucous membranes Throat: Yes tonsils normal Eyes Conjunctivae: conjunctivae normal Pupils: Equal, round and reactive pupils present and Pupil accommodation reflex normal Direct Ophthalmoscopy: normal light reflex Neck Neck: No lymphadenopathy Thyroid: Thyroid normal Chest Chest palpation & inspection: normal inspection of the chest Resp Effort & Inspection: normal respiratory effort and no audible wheezes Auscultation: clear to auscultation bilaterally, no crackles, no wheezes and lung sounds not diminished Cardio Rate: regular rate Rhythm: regular rhythm Peripheral pulses: radial pulses present and dorsalis pedis present GI Palpation (GI): no masses Auscultation: normal bowel sounds and normoactive bowel sounds Rectal Exam - Male: Yes deferred Skin General skin exam: no rashes or lesions noted Rashes: no rashes Neuro General: deep tendon reflexes 2+ bilaterally and No confusion Cranial nerves: Yes Equal, round and reactive pupils present, Yes Midline tongue present, Yes Normal hearing present and Yes Ability to bilaterally elevate shoulders present Cognition (Neuro): normal cognition Gait exam (Neuro): Normal gait present Motor exam (neuro): 5/5 motor strength present throughout Deep tendon reflexes (DTR's): Right brachioradialis reflex intensity grade: 2+, Left brachioradialis reflex intensity grade: 2+, Right patellar reflex intensity grade: 2+ and Left patellar reflex intensity grade: 2+ Extrem General: No edema Assessment and Plan Assessment & Plan (1) Annual physical exam: Code(s): Z00.00 - Encounter for general adult medical examination without abnormal findings (2) Splenomegaly: Code(s): R16.1 - Splenomegaly, not elsewhere classified Plan: Most likely form the nonalcoholic fatty liver disease, low-fat diet and exercise (3) NAFLD (nonalcoholic fatty liver disease): Code(s): K76.0 - Fatty (change of) liver, not elsewhere classified Plan: Low-fat diet and exercise (4) Tobacco abuse: Code(s): Z72.0 - Tobacco use Plan: Patient is strongly advised to stop smoking! (5) GERD (gastroesophageal reflux disease): Code(s): K21.9 - Gastro-esophageal reflux disease without esophagitis Plan: Avoid the foods that causes that usually spicy foods, tomato products, juices, coffee, soda and foods that your sensitive to. After eating do not lie down, allow 3-4 hours before in lie down. And keep the head of bed above 30 degrees to avoid the acid from going up. (6) Obesity (BMI 30-39.9): Code(s): E66.9 - Obesity, unspecified Plan: Diet and exercise (7) Benign essential hypertension: Code(s): I10 - Essential (primary) hypertension Plan: Continue with blood pressure medication. Decrease salt intake and exercise on amlodipine 2.5 mg once a day and lisinopril 20 mg once a (8) Generalized anxiety disorder: Code(s): F41.1 - Generalized anxiety disorder Orders: Referrals Gastroenterology Referral K76.0 - Fatty (change of) liver, not elsewhere classified Medications: Changed From amlodipine 2.5 mg PO DAILY 90 tabs 0RF I10 - Essential (primary) hypertension To amlodipine 5 mg PO DAILY 90 tabs 0RF I10 - Essential (primary) hypertension Coding Level of Care Code Est Pt Prev Care 40-64y(76621) Diagnoses Annual physical exam Z00.00 Splenomegaly R16.1 NAFLD (nonalcoholic fatty liver disease) K76.0 Tobacco abuse Z72.0 GERD (gastroesophageal reflux disease) K21.9 Obesity (BMI 30-39.9) E66.9 Benign essential hypertension I10 Generalized anxiety disorder F41.1
== END 2023-10-03 17:28 | disposition home or self-care (01) ==
LOC: HO.HMGH 16:07
PROVIDERS: PCP Internal Medicine; Visit Provider Internal Medicine
DX: Z00.00 Encounter for general adult medical examination without abnormal findings (principal); R16.1 Splenomegaly, not elsewhere classified; E66.9 Obesity, unspecified; Z68.32 Body mass index [BMI] 32.0-32.9, adult; K76.0 Fatty (change of) liver, not elsewhere classified; Z72.0 Tobacco use; K21.9 Gastro-esophageal reflux disease without esophagitis; I10 Essential (primary) hypertension; F41.1 Generalized anxiety disorder
CPT/HCPCS: 99396

== ENCOUNTER 2023-10-26 13:04 | Outpatient (AMB) | payer BC, SELFPAY ==
[2023-10-26 13:14] VITALS: BP 144/82; PULSE 75; O2SAT 98; BMI 33.1
--- NOTE | 2023-10-26 13:14 | MHC.PC.OV ---
Vital Signs 10/26/23 13:14 Height 5 ft 10 in Weight 231 lb BMI 33.1 BP 144/82 H Blood Pressure Location Lt brachial Position Sitting Pulse 75 Pulse Source Pulse Oximeter Pulse Oximetry (%) 98 Oxygen Delivery Method Room Air Intake Visit Reasons: Back Pain Allergies No Known Allergies Allergy (Verified 10/26/23 13:15) Medication List - Last Reconciled 10/26/23 by Carlos Cole MD amlodipine 5 mg PO DAILY blood pressure monitor As directed lisinopril 20 mg PO DAILY Tobacco use date assessed: 10/03/23 Dental Screening Dental Screen Date: 10/26/23 Did you have a dental visit in the last 12 months?: Yes Did you have a dental problem in the last 6 months where you did not have access to dental care?: No Was dental information given to patient?: Patient has dentist HPI Back Pain HPI Details 43-year-old obese male smoker with nonalcoholic fatty liver disease and splenomegaly GERD hypertension and generalized anxiety disorder last seen for physical exam in September 2023. Patient is here for acute problem. Patient complains of having vague pain on the thoracic back area with pain on the left upper quadrant denies any dysuria or frequency patient also complains of diffuse muscle aches patient has seen Rheumatology and was discharged due to no problems rheumatologic [place]. With this pain prompted for consultation. No nausea no vomiting continues to smoke no fevers no coughs no colds no shortness of breath patient also points to left subcostal margin pain. Patient also notes the blood pressure to be elevated. [facility] Medical History Elevated LFTs Rash and other nonspecific skin eruption Adult general medical exam Decreased hearing of right ear Right otitis media Benign essential hypertension Right hand pain Screening for hyperlipidemia Intermittent left-sided chest pain History of intravenous drug abuse Irritable bowel disease Tobacco abuse GERD (gastroesophageal reflux disease) Obesity (BMI 30-39.9) Surgical History History of esophagogastroduodenoscopy (EGD) History of colonoscopy Family History Mother Cancer Colon cancer Scleroderma Father High blood pressure Other Substance abuse Social History (Updated 10/03/23 @ 17:12 by Carlos Cole MD) Housing: House Alcohol intake: current Alcohol intake frequency: holidays/special occasions only Comment: once a month 6 pack Patient Tobacco Use Status: Current everyday Tobacco user Tobacco use type: Cigarette Cigarette Packs Per Day: 1 Cigarettes Per Day: 8 Years Smoked: 25 years of smoking e-Cigarette/Vaping Use: Never Used Second Hand Smoke Exposure: Yes service: No Current occupational status: employed Cognitive needs: No Hearing needs: No Vision needs: Yes (glasses) Questionnaire PHQ-9 Over the last 2 weeks, how often have you been bothered by any of the following problems? 1. Little interest or pleasure in doing things: not at all 2. Feeling down, depressed, or hopeless: not at all 3. Trouble falling or staying asleep, or sleeping too much: not at all 4. Feeling tired or having little energy: not at all 5. Poor appetite or overeating: not at all 6. Feeling bad about yourself - or that you are a failure or have let yourself or your family down: not at all 7. Trouble concentrating on things, such as reading the newspaper or watching television: not at all 8. Moving or speaking so slowly that other people could have noticed. Or the opposite - being so fidgety or restless that you have been moving around a lot more than usual: not at all 9. Thoughts that you would be better off or of hurting yourself in some way: not at all Total score: 0 Depression Screening Interpretation: Negative Depression Screening Done: Yes Source: Developed by Drs. Ke Navarro, Keisha Miranda, Anthony Washington and colleagues, with an educational keisha from [employer]. Thrive Questionnaire Date Thrive assessed: 10/03/23 AUDIT C Alcohol Use Questionnaire (AUDIT-C) 1. How often do you have a drink containing alcohol?: Monthly or less 2. How many drinks containing alcohol do you have on a typical day when you are drinking?: 1 or 2 3. How often do you have six or more drinks on one occasion?: Never Total Score: 1 Score Reviewed/Action Taken: No ÁNGELA-7 AMB Questionnaire ÁNGELA-7 Date ÁNGELA - 7 assessed: 10/03/23 Source: Developed by Drs. Ke L. MelanieKeisha nino, Anthony Washington and colleagues, with an educational keisha from [employer]. Physical exam (Primary Care) Vital Signs: Last Vital Signs Pulse 75 10/26/23 13:14 BP 144/82 H 10/26/23 13:14 Pulse Ox 98 10/26/23 13:14 Oxygen Delivery Method Room Air 10/26/23 13:14 BMI result Body Mass Index 33.1 Tobacco/Smoking Status: Tobacco use Status Tobacco use date assessed 10/03/23 10/26/23 13:19 Patient Tobacco Use Status Current everyday Tobacco 10/26/23 13:19 Tobacco use type Cigarette 10/26/23 13:19 e-Cigarette/Vaping Use Never Used 10/26/23 13:19 PHQ-9: PHQ-9 Score PHQ-9: Total score 0 10/26/23 13:19 Depression Screening Interpretation: Negative Thrive Assessment: Date of Thrive Assessment Date Thrive assessed 10/03/23 10/26/23 13:19 Const General: alert; No acute distress Eyes Conjunctivae: conjunctivae normal Resp Auscultation: clear to auscultation bilaterally Cardio Rate: regular rate Rhythm: regular rhythm GI Inspection: Yes normal to inspection Extrem General: Yes normal to inspection and No edema Assessment and Plan Assessment & Plan (1) Left upper quadrant abdominal pain: Code(s): R10.12 - Left upper quadrant pain Plan: Will follow-up on the splenomegaly he is having as well as the vague pain that he has been feeling. Normal spleen size is 12 patient is MRI done last year was 15.5. Patient does have a follow-up with Gastroenterology. (2) Hypersomnia: Code(s): G47.10 - Hypersomnia, unspecified Plan: Sleep study requested and discussed importance of getting this diagnosed. (3) Splenomegaly: Code(s): R16.1 - Splenomegaly, not elsewhere classified Plan: Ultrasound follow-up requested. (4) Tobacco abuse: Code(s): Z72.0 - Tobacco use Plan: Patient is strongly advised to stop smoking! (5) Benign essential hypertension: Code(s): I10 - Essential (primary) hypertension Plan: Continue with blood pressure medication. Decrease salt intake and exercise increase lisinopril to 40 mg once a day Orders: Orders RT home sleep study Today G47.10 - Hypersomnia, unspecified US abdomen complete Today R10.12 - Left upper quadrant pain, R79.89 - Other specified abnormal findings of blood chemistry XR thoracic spine 2V Today R10.12 - Left upper quadrant pain XR ribs LT min 3V w CXR1V Today Z72.0 - Tobacco use Medications: Changed From lisinopril 20 mg PO DAILY 90 tabs 2RF I10 - Essential (primary) hypertension To lisinopril 40 mg PO DAILY 30 tabs 4RF I10 - Essential (primary) hypertension Coding Level of Care Code Est Pt Level 4 (24575) Diagnoses Left upper quadrant abdominal pain R10.12 Hypersomnia G47.10 Splenomegaly R16.1 Tobacco abuse Z72.0 Benign essential hypertension I10
== END 2023-10-26 13:45 | disposition home or self-care (01) ==
PROVIDERS: PCP Internal Medicine; Visit Provider Internal Medicine
DX: R10.12 Left upper quadrant pain (principal); G47.10 Hypersomnia, unspecified; R16.1 Splenomegaly, not elsewhere classified; Z72.0 Tobacco use; I10 Essential (primary) hypertension
CPT/HCPCS: 99214

== ENCOUNTER 2023-11-04 10:42 | Outpatient (REF) | payer BC, SELFPAY ==
--- NOTE | ~2023-11-04 | XR_ITS ---
EXAMINATION: XR THORACOLUMBAR SPINE CLINICAL INFORMATION: Left upper quadrant pain. COMPARISON: None available. TECHNIQUE: 3 views of the thoracic spine. FINDINGS: Slight leftward curvature of the [id number] thoracic spine. Mild anterior loss of height of several lower thoracic vertebral bodies of indeterminate age. Possible degenerative changes on very limited images of the cervical spine could be evaluated with dedicated cervical spine radiographs. XR/XR thoracic spine 2V IMPRESSION: 1. Mild anterior loss of height of several lower thoracic vertebral bodies of indeterminate age. 2. Possible degenerative changes on very limited images of the cervical spine could be evaluated with dedicated cervical spine radiographs.
--- NOTE | ~2023-11-04 | XR_ITS ---
EXAMINATION: XR RIBS, LEFT CLINICAL INFORMATION: Tobacco use. COMPARISON: None available. TECHNIQUE: 7 views of the left ribs were obtained, together with a frontal view of the chest. FINDINGS: Lungs are clear. No consolidation, pneumothorax, or pleural effusion. There is bilateral bronchiolar wall thickening. The cardiomediastinal silhouette and pulmonary vasculature are normal. Osseous structures are unremarkable. Ribs are intact. No fractures are identified. XR/XR ribs LT min 3V w CXR1V IMPRESSION: 1. No focal infiltrate or congestive heart failure is seen. 2. There is mild bronchiolar wall thickening, which can be associated with acute bronchiolitis or reactive airways disease. 3. No rib fracture is seen. There is no pleural effusion or pneumothorax noted.
== END 2023-11-04 10:43 | disposition home or self-care (01) ==
LOC: HO.XRAY 10:42
PROVIDERS: PCP Internal Medicine; Visit Provider Internal Medicine
DX: R10.12 Left upper quadrant pain (principal); Z72.0 Tobacco use
CPT/HCPCS: 71101; 72070

== ENCOUNTER 2024-01-05 15:00 | Outpatient (AMB) | payer BC, SELFPAY ==
[2024-01-05 15:03] VITALS: BP 132/84; PULSE 76; O2SAT 98; BMI 32.1
--- NOTE | 2024-01-05 15:07 | A.OFFPC_ITS ---
Vital Signs 01/05/24 15:03 Height 5 ft 10 in Weight 224 lb 0.6 oz BMI 32.1 BP 132/84 Blood Pressure Location Lt brachial Position Sitting Pulse 76 Pulse Source Pulse Oximeter Pulse Oximetry (%) 98 Oxygen Delivery Method Room Air Intake Visit Reasons: Hypertension Allergies No Known Allergies Allergy (Verified 10/26/23 13:15) Medication List - Last Reconciled 01/05/24 by Carlos Cole MD amlodipine 5 mg PO DAILY blood pressure monitor As directed fluconazole (Diflucan) 200 mg PO .once a week lisinopril 40 mg PO DAILY Tobacco use date assessed: 10/03/23 Dental Screening Dental Screen Date: 10/26/23 HPI Hypertension HPI Details 43-year-old obese male smoker with hyper tension coming in for follow-up [facility] Medical History Elevated LFTs Rash and other nonspecific skin eruption Adult general medical exam Decreased hearing of right ear Right otitis media Benign essential hypertension Right hand pain Screening for hyperlipidemia Intermittent left-sided chest pain History of intravenous drug abuse Irritable bowel disease Tobacco abuse GERD (gastroesophageal reflux disease) Obesity (BMI 30-39.9) Surgical History History of esophagogastroduodenoscopy (EGD) History of colonoscopy Family History Mother Cancer Colon cancer Scleroderma Father High blood pressure Other Substance abuse Social History (Updated 10/03/23 @ 17:12 by Carlos Cole MD) Housing: House Alcohol intake: current Alcohol intake frequency: holidays/special occasions only Comment: once a month 6 pack Patient Tobacco Use Status: Current everyday Tobacco user Tobacco use type: Cigarette Cigarette Packs Per Day: 1 Cigarettes Per Day: 8 Years Smoked: 25 years of smoking e-Cigarette/Vaping Use: Never Used Second Hand Smoke Exposure: Yes service: No Current occupational status: employed Cognitive needs: No Hearing needs: No Vision needs: Yes (glasses) Questionnaire Thrive Questionnaire Date Thrive assessed: 10/03/23 ÁNGELA-7 AMB Questionnaire ÁNGELA-7 Date ÁNGELA - 7 assessed: 10/03/23 Source: Developed by Keisha GaviriaW. Ruben, Anthony Washington and colleagues, with an educational keisha from [employer]. Physical exam (Primary Care) Vital Signs: Last Vital Signs Pulse 76 01/05/24 15:03 BP 132/84 01/05/24 15:03 Pulse Ox 98 01/05/24 15:03 Oxygen Delivery Method Room Air 01/05/24 15:03 BMI result Body Mass Index 32.1 Tobacco/Smoking Status: Tobacco use Status Tobacco use date assessed 10/03/23 01/05/24 15:13 Patient Tobacco Use Status Current everyday Tobacco 01/05/24 15:13 Tobacco use type Cigarette 01/05/24 15:13 e-Cigarette/Vaping Use Never Used 01/05/24 15:13 Thrive Assessment: Date of Thrive Assessment Date Thrive assessed 10/03/23 01/05/24 15:13 Const General: alert; No acute distress Eyes Conjunctivae: conjunctivae normal Resp Auscultation: clear to auscultation bilaterally Cardio Rate: regular rate Rhythm: regular rhythm GI Inspection: Yes normal to inspection Skin Other: Multiple macular rash on the chest , arms, popliteal areas Extrem General: Yes normal to inspection and No edema Assessment and Plan Assessment & Plan (1) Fatty liver: Comment: January 2023 Code(s): K76.0 - Fatty (change of) liver, not elsewhere classified Plan: Low-fat diet and exercise (2) Obesity (BMI 30-39.9): Code(s): E66.9 - Obesity, unspecified Plan: Diet and exercise (3) GERD (gastroesophageal reflux disease): Code(s): K21.9 - Gastro-esophageal reflux disease without esophagitis Plan: Avoid the foods that causes that usually spicy foods, tomato products, juices, coffee, soda and foods that your sensitive to. After eating do not lie down, allow 3-4 hours before in lie down. And keep the head of bed above 30 degrees to avoid the acid from going up. (4) Tobacco abuse: Code(s): Z72.0 - Tobacco use Plan: Patient is strongly advised to stop smoking! (5) Benign essential hypertension: Code(s): I10 - Essential (primary) hypertension Plan: Continue with blood pressure medication. Decrease salt intake and exercise on lisinopril and amlodipine. (6) Tinea corporis: Code(s): B35.4 - Tinea corporis Plan: diflucan sent (7) Peripheral vascular disease: Code(s): I73.9 - Peripheral vascular disease, unspecified Plan: When sitting down elevate the legs, exercise, and support stockings Medications: New fluconazole (Diflucan) 200 mg PO .once a week 4 tabs 0RF B35.4 - Tinea corporis Coding Level of Care Code Est Pt Level 4 (00964) Diagnoses Fatty liver K76.0 Obesity (BMI 30-39.9) E66.9 GERD (gastroesophageal reflux disease) K21.9 Tobacco abuse Z72.0 Benign essential hypertension I10 Tinea corporis B35.4 Peripheral vascular disease I73.9
== END 2024-01-05 15:51 | disposition home or self-care (01) ==
PROVIDERS: PCP Internal Medicine; Visit Provider Internal Medicine
DX: K76.0 Fatty (change of) liver, not elsewhere classified (principal); I73.9 Peripheral vascular disease, unspecified; E66.9 Obesity, unspecified; Z68.32 Body mass index [BMI] 32.0-32.9, adult; K21.9 Gastro-esophageal reflux disease without esophagitis; Z72.0 Tobacco use; I10 Essential (primary) hypertension; B35.4 Tinea corporis
CPT/HCPCS: 99214

== ENCOUNTER 2024-03-07 07:51 | Outpatient (REF) | payer BC, SELFPAY ==
--- NOTE | ~2024-03-07 | US_ITS ---
EXAMINATION: US ABDOMEN COMPLETE CLINICAL INFORMATION: Other specified abnormal findings of blood chemistry. COMPARISON: MRI abdomen 05/01/2023. Ultrasound abdomen complete 12/19/2022. Limited abdominal ultrasound 08/22/2022. CT abdomen and pelvis 07/14/2019. TECHNIQUE: Real-time imaging of the abdominal viscera. Limited visualization due to bowel gas. FINDINGS: PANCREAS: Limited visualization of pancreatic tail and head. Imaged portion of pancreatic body is unremarkable. ABDOMINAL AORTA: Imaged portions of abdominal aorta are within normal limits in caliber. INFERIOR VENA CAVA: Visualized portions are normal. LIVER: Increased hepatic parenchymal heterogeneity and echogenicity could be associated with hepatocellular disease/hepatic steatosis and substantially limits visualization. Correlation with liver function tests and clinical exam recommended to determine further management. GALLBLADDER: No gallstones. No gallbladder wall thickening. COMMON BILE DUCT: Normal in caliber measuring 0.3 cm in diameter. RIGHT KIDNEY: No hydronephrosis. No renal calculi. Limited visualization. The kidney measures 12.8 cm in maximum dimension. LEFT KIDNEY: No hydronephrosis. No renal calculi. Limited visualization. The kidney measures 12.8 cm in maximum dimension. SPLEEN: Normal. The spleen measures 11.7 cm in maximum dimension. FREE FLUID: None. US/US abdomen complete IMPRESSION: Increased hepatic parenchymal heterogeneity and echogenicity could be associated with hepatocellular disease/hepatic steatosis and substantially limits visualization. Correlation with liver function tests and clinical exam recommended to determine further management. This study was presented today March 19, 2024 for interpretation. Stat results provided at this time as requested by referring provider.
[2024-03-07 17:05] LABS: Estimated Average Glucose 100 mg/dL; Hemoglobin A1c % 5.1 % (<6.0)
[2024-03-07 17:34] LABS: Alanine Aminotransferase 88 U/L (0-40); Alkaline Phosphatase 65 U/L (39-117); Anion Gap 13 (12-20); Aspartate Amino Transferase 48 U/L (5-37); Bilirubin Total 1.9 mg/dL (0.0-1.0); Blood Urea Nitrogen 17 mg/dL (9-16); Calcium 10.2 mg/dL (8.4-10.2); Carbon Dioxide 27 mmol/L (22-29); Chloride 106 mmol/L (96-108); Cholesterol 156 mg/dL (<200); Estimated Glomerular Filt Rate > 60; Glucose Random 80 mg/dL (60-115); HDL Cholesterol 44 mg/dL (>40); Iron 183 mcg/dL (45-160); LDL Cholesterol Calculated 97 mg/dL (<100); Percent Iron Saturation 53 % (15-50); Potassium 4.2 mmol/L (3.3-5.1); Sodium 142 mmol/L (135-145); Total Iron Binding Capacity 348 mcg/dL (228-428); Total Protein 8.4 g/dL (6.5-8.0); Triglycerides 79 mg/dL (<150); Unsaturated Iron Binding 165 ug/dL
[2024-03-07 17:45] LABS: Ferritin 214 ng/mL (20-250)
[2024-03-08 09:42] LABS: HBS Num1 2.98 mIU/mL (0-7.99); HBc Num1 0.09 S/CO (0.00-0.79); HBsAGNum1 0.37 S/CO (0.00-0.99); Hepatitis A Antibody IgM 0.13 Index (0-0.79); Hepatitis B Core Antibody Nonreactive (Nonreactive); Hepatitis B Surface Antigen Negative (Negative); ~HepC Num1 0.09 S/CO (0.00-0.79); ~Hepatitis A Antibody IgM Nonreactive (Nonreactive); ~Hepatitis B Surface Antibody NONREACTIVE (Nonreactive); ~Hepatitis C Antibody Nonreactive (Nonreactive)
[2024-03-09 02:08] LABS: Alpha 1 Anti-trypsin 134 mg/dL (83-199); Ceruloplasmin 23 mg/dL (14-30)
[2024-03-12 14:48] LABS: Smooth Muscle Antibody <20 U (<20)
[2024-03-12 15:13] LABS: Mitochondrial Antibodies NEGATIVE (NEGATIVE)
[2024-03-13 07:42] LABS: Anti Nuclear Antibody Screen NEGATIVE (NEGATIVE)
[2024-03-15 16:59] LABS: FIB-ALT 75 U/L (9-46); FIB-Alpha-2-Macroglobulin 348 mg/dL (106-279); FIB-Apolipoprotein A1 141 mg/dL (94-176); FIB-GGT 28 U/L (3-95); FIB-Haptoglobin 76 mg/dL (43-212); FIB-Total Bilirubin 1.7 mg/dL (0.2-1.2); Liver Fibrosis Score 0.72; Liver Fibrosis Stage F3; Nec Inflam Act Grade A2-A3
== END 2024-03-07 07:52 | disposition home or self-care (01) ==
LOC: HO.US 07:51
PROVIDERS: PCP Internal Medicine; Visit Provider Internal Medicine
DX: R10.12 Left upper quadrant pain (principal); R79.89 Other specified abnormal findings of blood chemistry; K76.0 Fatty (change of) liver, not elsewhere classified; E83.19 Other disorders of iron metabolism; R84.6 Abnormal cytological findings in specimens from respiratory organs and thorax
CPT/HCPCS: 36415; 76700; 80053; 80061; 81256; 81596; 82103; 82390; 82728; 83036; 83540; 86015; 86038; 86381; 86704; 86706; 86709; 86803; 87340

== ENCOUNTER 2024-06-13 13:30 | Outpatient (AMB) | payer BC, SELFPAY ==
--- NOTE | 2024-06-13 13:34 | MHC.PC.OV ---
Vital Signs 06/13/24 13:40 Height 5 ft 10 in Weight 219 lb 6 oz BMI 31.5 BP 110/76 Blood Pressure Location Lt brachial Position Sitting Pulse 70 Pulse Source Pulse Oximeter Pulse Oximetry (%) 98 Oxygen Delivery Method Room Air Intake Visit Reasons: Muscle Weakness Intake Note: Patient is here to follow up on muscle weakness. Appetizer Packer Required: No Nursing Secretary: Not Required per policy Accompanied by: Self / Same As Patient Allergies No Known Allergies Allergy (Verified 06/13/24 13:40) Tobacco use date assessed: 06/13/24 Dental Screening Dental Screen Date: 10/26/23 HPI Muscle Weakness HPI Details 43-year-old obese male smoker with fatty liver GERD with hypertension and peripheral vascular disease last seen in December 2023. Review of the notes had an ultrasound of the abdomen in February showing increased heterogeneity of the liver with hepatic steatosis. He did see the salon professional . PAtient complains of 2 years of myalgia, burning sensation on the upper arms , legs and abdomen. , no n no v, no dizzy, no night sweats, no redness, occ . sed rate negative [facility] Medical History Elevated LFTs Rash and other nonspecific skin eruption Adult general medical exam Decreased hearing of right ear Right otitis media Benign essential hypertension Right hand pain Screening for hyperlipidemia Intermittent left-sided chest pain History of intravenous drug abuse Irritable bowel disease Tobacco abuse GERD (gastroesophageal reflux disease) Obesity (BMI 30-39.9) Surgical History History of esophagogastroduodenoscopy (EGD) History of colonoscopy Family History Mother Cancer Colon cancer Scleroderma Father High blood pressure Other Substance abuse Social History (Updated 06/13/24 @ 13:44 by ANNY Yanez) Housing: House Alcohol intake: current Alcohol intake frequency: holidays/special occasions only Comment: once a month 6 pack Patient Tobacco Use Status: Current everyday Tobacco user Tobacco use type: Cigarette Cigarette Packs Per Day: 1 Cigarettes Per Day: 15 Years Smoked: 25 years of smoking e-Cigarette/Vaping Use: Never Used Second Hand Smoke Exposure: Yes service: No Current occupational status: employed Cognitive needs: No Hearing needs: No Vision needs: Yes (glasses) Questionnaire Thrive Questionnaire Date Thrive assessed: 10/03/23 ÁNGELA-7 AMB Questionnaire ÁNGELA-7 Date ÁNGELA - 7 assessed: 10/03/23 Source: Developed by Drs. Ke Navarro, Keisha Miranda, Anthony Washington and colleagues, with an educational keisha from [employer]. Physical exam (Primary Care) Vital Signs: Last Vital Signs Pulse 70 06/13/24 13:40 BP 110/76 06/13/24 13:40 Pulse Ox 98 06/13/24 13:40 Oxygen Delivery Method Room Air 06/13/24 13:40 BMI result Body Mass Index 31.5 Tobacco/Smoking Status: Tobacco use Status Tobacco use date assessed 06/13/24 06/13/24 13:46 Patient Tobacco Use Status Current everyday Tobacco 06/13/24 13:44 Tobacco use type Cigarette 06/13/24 13:44 e-Cigarette/Vaping Use Never Used 06/13/24 13:44 Thrive Assessment: Date of Thrive Assessment Date Thrive assessed 10/03/23 06/13/24 13:35 Const General: alert; No acute distress Eyes Conjunctivae: conjunctivae normal Resp Auscultation: clear to auscultation bilaterally Cardio Rate: regular rate Rhythm: regular rhythm GI Inspection: Yes normal to inspection Extrem General: Yes normal to inspection and No edema Office Procedures Flu Questionnaire Does the patient have a severe egg allergy?: No Does the patient have severe life threatening allergies?: No Does the patient have a fever or illness today?: No Has the patient ever had Guillain-Cut Off Syndrome?: No Has the patient ever had any past reaction to a flu shot?: No Immunizations Fluarix Triv 2220-0067 (PF) 45 mcg (15 mcg x 3)/0.5 mL IM syringe Performing Provider: Carlos Cole MD [facility] Administered by: ANNY Robles on 06/13/24 14:31 Dose Route Admin Location Dispensed Lot Number Expiration Date [facility] Blood Bank Business Manager 0.5 mL IM Left Deltoid 0.5 mL [id number] 02/10/25 [id number] [employer] VIS Given Date VIS Provided VIS Publication Date 06/13/24 Single Vaccine 21 Eligibility Eligibility Date Funding Source Not [facility] Eligible 06/13/24 Private Coding Level of Care Code Est Pt Level 4 (47037) Diagnoses NAFLD (nonalcoholic fatty liver disease) K76.0 Tobacco abuse Z72.0 Gastroesophageal reflux disease without esophagitis K21.9 Esophagitis presence: without esophagitis Obesity (BMI 30-39.9) E66.9 Benign essential hypertension I10 Family history of colon cancer Z80.0 Assessment & Plan Assessment & Plan (1) NAFLD (nonalcoholic fatty liver disease): Comment: Ultrasound February 2024 Code(s): K76.0 - Fatty (change of) liver, not elsewhere classified Category: Medical Plan: Low-fat diet and exercise. Patient follows up with Gastroenterology (2) Tobacco abuse: Code(s): Z72.0 - Tobacco use Category: Medical Plan: Patient is strongly advised to stop smoking (3) GERD (gastroesophageal reflux disease): Code(s): K21.9 - Gastro-esophageal reflux disease without esophagitis Category: Medical Qualifiers: Esophagitis presence: without esophagitis Qualified Code(s): K21.9 - Gastro-esophageal reflux disease without esophagitis Plan: Avoid the foods that causes that usually spicy foods, tomato products, juices, coffee, soda and foods that your sensitive to. After eating do not lie down, allow 3-4 hours before in lie down. And keep the head of bed above 30 degrees to avoid the acid from going up. (4) Obesity (BMI 30-39.9): Code(s): E66.9 - Obesity, unspecified Category: Medical Plan: Continue with diet and exercise noted weight loss (5) Benign essential hypertension: Code(s): I10 - Essential (primary) hypertension Category: Medical Plan: Continue with blood pressure medication. Decrease salt intake and exercise on lisinopril 40 mg and amlodipine 5 mg once a (6) Family history of colon cancer: Comment: mother Code(s): Z80.0 - Family history of malignant neoplasm of digestive organs Category: Medical Plan: colon test 2024 Orders: Orders Complete Blood Count Auto Diff Today K21.9 - Gastro-esophageal reflux disease without esophagitis Erythrocyte Sedimentation Rate Today K21.9 - Gastro-esophageal reflux disease without esophagitis Free T4 (Free Thyroxine) Today K21.9 - Gastro-esophageal reflux disease without esophagitis Thyroid Stimulating Hormone Today K21.9 - Gastro-esophageal reflux disease without esophagitis UA CC w/rflx Micro + Cult Today K21.9 - Gastro-esophageal reflux disease without esophagitis, R30.0 - Dysuria Influenza [id number] Immunization Today Z23 - Encounter for immunization Comprehensive Met. Panel Today K21.9 - Gastro-esophageal reflux disease without esophagitis C Reactive Protein Today K21.9 - Gastro-esophageal reflux disease without esophagitis Vitamin B12 and Folate Today K21.9 - Gastro-esophageal reflux disease without esophagitis Medications: New Fluarix Triv [id number] (PF) (flu vacc [id number] 6mos up(PF)) 0.5 mL IM ONCE 0.5 mL 0RF NS Z23 - Encounter for immunization
[2024-06-13 13:40] VITALS: BP 110/76; PULSE 70; O2SAT 98; BMI 31.5
== END 2024-06-13 14:33 | disposition home or self-care (01) ==
LOC: HO.HMCH 13:30
PROVIDERS: PCP Internal Medicine; Visit Provider Internal Medicine
DX: K21.9 Gastro-esophageal reflux disease without esophagitis (principal); K76.0 Fatty (change of) liver, not elsewhere classified; Z68.31 Body mass index [BMI] 31.0-31.9, adult; E66.9 Obesity, unspecified; Z72.0 Tobacco use; I10 Essential (primary) hypertension; Z80.0 Family history of malignant neoplasm of digestive organs

== ENCOUNTER → 2024-06-13 13:30 | Outpatient (BNVA) | payer BC, SELFPAY | PROVIDERS: PCP Internal Medicine; Visit Provider Internal Medicine | DX: K76.0 Fatty (change of) liver, not elsewhere classified (principal); K21.9 Gastro-esophageal reflux disease without esophagitis; I10 Essential (primary) hypertension; E66.9 Obesity, unspecified; Z68.31 Body mass index [BMI] 31.0-31.9, adult; Z79.899 Other long term (current) drug therapy; Z72.0 Tobacco use; Z23 Encounter for immunization; Z80.0 Family history of malignant neoplasm of digestive organs | CPT/HCPCS: 90471; 90656 ==

== ENCOUNTER 2024-07-15 08:15 | Outpatient (AMB) | payer BC, SELFPAY ==
--- NOTE | 2024-07-15 08:21 | MHC.OFFVIS ---
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 Patient reports ongoing elbow pain that radiates down to his forearm for about 3 - 4 months. Patient states that his pain is mainly in his elbow, however he mentions having some left shoulder pain as well. He reports that his right elbow is worse than the left. Limited ROM. Patient wanted to mention that he has Muscle weakness for 2 - 3 years. 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 He states the left was bothering him, but it has resolved with time. 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 He also does a lot of fishing, casting for hours which does aggravate it. He does feel this have altered his way of living. Denies n/t. No treatment to date. He has tried IBU prn. [facility] Medical History Elevated LFTs Rash and other nonspecific skin eruption Adult general medical exam Decreased hearing of right ear Right otitis media Benign essential hypertension Right hand pain Screening for hyperlipidemia Intermittent left-sided chest pain History of intravenous drug abuse Irritable bowel disease Tobacco abuse GERD (gastroesophageal reflux disease) Obesity (BMI 30-39.9) Surgical History History of esophagogastroduodenoscopy (EGD) History of colonoscopy Family History Mother Cancer Colon cancer Scleroderma Father High blood pressure Other Substance abuse Social History Housing: House Alcohol intake: current Alcohol intake frequency: holidays/special occasions only Comment: once a month 6 pack Patient Tobacco Use Status: Current everyday Tobacco user Tobacco use type: Cigarette Cigarette Packs Per Day: 1 Cigarettes Per Day: 15 Years Smoked: 25 years of smoking e-Cigarette/Vaping Use: Never Used Second Hand Smoke Exposure: Yes service: No Current occupational status: employed Cognitive needs: No Hearing needs: No Vision needs: Yes (glasses) Review of Systems Const All systems reviewed & are unremarkable except as noted in HPI and below Physical Exam Const General: cooperative, healthy appearing, comfortable, no acute distress, well developed and alert Orientation/consciousness: patient oriented x3 HEENT Head: Yes normal to inspection, Yes normocephalic and Yes atraumatic Eyes General: appearance normal, both eyes and all related structures Resp Effort & Inspection: normal respiratory effort and able to speak in complete sentences Cardio Rate: regular rate Peripheral pulses: Peripheral pulses 2+ throughout GI Palpation (GI): Soft to palpation Skin Lesions: no lesions Rashes: no rashes Neuro General: patient oriented x3 Extrem Other: Right Elbow skin intact. No erythema or swelling. ROM full without pain. Tenderness over the lateral epicondyle and pain with resisted wrist extension. NVI. Assessment & Plan Assessment & Plan (1) Lateral epicondylitis, right elbow: Code(s): M77.11 - Lateral epicondylitis, right elbow Category: Medical Plan We discussed options which include PT, NSAIDs and injections. The patient will defer on the injection today and proceed with PT and NSAIDs. I did give him some home exercises in the office today. If symptoms persist, he will contact me for an injection, otherwise, PRN. Orders: Orders OT Evaluation and Treatment Today M77.11 - Lateral epicondylitis, right elbow Medications: New naproxen 500 mg PO BID 60 tabs 3RF 30 days S93.409A - Sprain of unspecified ligament of unspecified ankle, initial encounter Patient Instructions: Scribed for Nenita Mcguire PA-C, by Joseluis Santoyo emergency medical service coordinator, on 07/15/2024 at 8:30 AM EST.? I, Nenita Mcguire PA-C, have personally reviewed and agree with the information entered by the scribe. Coding Level of Care Code New Pt Level 3 (09633) Complex EM visit Add On G2271 Diagnoses Lateral epicondylitis, right elbow M77.11
== END 2024-07-15 09:07 | disposition home or self-care (01) ==
PROVIDERS: PCP Internal Medicine; Visit Provider Physician Assistant
DX: M77.11 Lateral epicondylitis, right elbow (principal)
CPT/HCPCS: 99203

== ENCOUNTER 2024-10-03 16:30 | Outpatient (REF) | payer BC, SELFPAY ==
[2024-10-03 16:49] LABS: MANUAL DIFF FLAG NO
--- OUTSIDE RECORDS SUMMARY | 2024-10-03 16:50 | XMS_ITS ---
Author Organization [facility] Address [address] [place] [address] Care Team Providers Care Parquetry Layer Name Role Phone Carlos Cole MD Primary Care Provider Ke Owen Unavailable [phone] ALLERGIES No Known Allergies REASON FOR VISIT Patient presents today for fatty liver MEDICATIONS Medication SIG (Take, Route, Frequency, Duration) Notes Start Date End Date Status amLODIPine Besylate 5 MG TAKE 1 TABLET BY MOUTH DAILY Oral for 90 I10,Unavailable Active Lisinopril 10 MG 1 tablet Orally Once a day for 30 day(s) Active Omeprazole 40 MG 1 Orally Once a day every morning for 30 day(s) 03/21/2024 Active SOCIAL HISTORY Tobacco Use: Social History Observation Description Date Details (start date - stop date) Current Smoker NA - NA Sex Assigned At : Social History Observation Description Sex Assigned At Unknown Tobacco Use/Smoking Question Answer Notes Patient is a current smoker When did you start smoking? 16 years old How often do you smoke cigarettes? every day How many cigarettes a day do you smoke? 11-20 How soon after you wake up d o you smoke your first cigarette? 6-30 minutes Are you interested in quitting? Thinking about q uitting Alcohol Screen Question Answer Notes Did you have a drink contain ing alcohol in the past year? Yes How often did you have a dri nk containing alcohol in the past year? 2 to 4 times a month (2 points) How many drinks did you have on a typical day when you were drinking in the past year? 1 or 2 drinks (0 point) How often did you have 6 or more drinks on one occasion in the past year? Less than monthly (1 point) Points 3 Interpretation Negative PROBLEMS Problem Type ICD Code Onset Dates Problem Status W/U Status Risk SNOMED Code Notes Problem Chronic GERD (K21.9) Active confirmed Gastroesophagea l reflux disease (584980290) VITAL SIGNS BMI 31.56 kg/m2 06/12/2024 Blood pressure systolic 000 mm Hg 06/12/20 24 Blood pressure diastolic 00 mm Hg 024 Height 70 in 06/12/2024 Temperature 98.4 degrees Fahrenheit 06/12/20 24 Weight 220 lbs 06/12/2024 Encounters Encounter Location Date Provider Diagnosis [facility] [address] [place] [address] 06/12/2024 Ke Knowles Family history of colon cancer Z80.0 ; Fatty liver K76.0 ; Encounter for screening for malignant neoplasm of colon Z12.11 and Chronic GERD K21.9 ASSESSMENTS Encounter Date Diagnosis Assessment Notes Treatment Notes Treatment Clinical Notes 06/12/2024 Family history of colon cancer (ICD-10 - Z80.0) 06/12/2024 Fatty liver (ICD-10 - K76.0) Try to lose some weight and eat healthy to help the fatty liver. Avoid alcohol as well. 06/12/2024 Encounter for screening for malignant neoplasm of colon (ICD-10 - Z12.11) 06/12/2024 Chronic GERD (ICD-10 - K21.9) Minimize coffee and stop smoking to help the reflux. Use the Omeprazole as needed or daily, the 20 or 40mg. PLAN OF TREATMENT Treatment Notes Assessment Notes Fatty liver Try to lose some feliciano ght and eat healthy to help the fatty liver. Avoid alcohol as well. Chronic GERD Minimize coffee and stop smoking to help the reflux. Use the Omeprazole as needed or daily, the 20 or 40mg. Pending Test Test Name Order Date LIVER PROFILE 06/12/2024 Future Test Test Name Order Date COLONOSCOPY 06/12/2024 Next Appt Details Follow Up: prn, Reason: Provider Name:Ke Knowles , 10/11/2024 09:30:00 AM, [address] [place] [address] , [place], [place], [phone], Progress Notes * Examination Category Sub-Category Detail Notes General Examination GENERAL APPEARANCE: pleasant , well nourished, well developed, in no acute distress HEAD: EYES: sclera non-icteric EARS: NOSE: THROAT: NECK/THYROID: no cervical lymphade nopathy, neck supple HEART: S1, S2 normal CHEST: LUNGS: clear to auscultatio n bilaterally ABDOMEN: normal bowel sounds, no guarding or rigidity, no guarding or rigidity, no masses palpable, soft, nontender, nondistended NEUROLOGIC: alert and oriented SKIN: nonjaundiced, no spi rubia angiomata EXTREMITIES: no edema PERIPHERAL PULSES: BACK: BREASTS: MUSCULOSKELETAL: MALE GENITOURINARY: LYMPH NODES: RECTAL EXAM: FEMALE GENITOURINARY: ORAL CAVITY: mucosa moist
--- OUTSIDE RECORDS SUMMARY | 2024-10-03 16:51 | XMS_ITS ---
Author Organization [facility] Address [address] [place] [address] Care Team Providers Care Floor Molder Name Role Phone Po Carlos OCONNOR Primary Care Provider Ke Owen Unavailable [phone] Encounters Encounter Location Date Provider Diagnosis [facility] [address] [place] [phone] 04/03/2024 Ke Knowles PLAN OF TREATMENT Next Appt Details Provider Name:Ke Knowles , 10/11/2024 09:30:00 AM, [address] [facility] , [place], [place], [phone],
--- OUTSIDE RECORDS SUMMARY | 2024-10-03 16:51 | XMS_ITS ---
Author Organization [facility] Address [address] [place] [phone] Care Team Providers Care Collection Manager Name Role Phone Po Carlos OCONNOR Primary Care Provider Ke Owen [phone] MEDICATIONS Medication SIG (Take, Route, Fr equency, Duration) Notes Start Date End Date Status Omeprazole 40 MG 1 Orally Once a day every morning for 30 day(s) 03/21/2024 Active PROBLEMS Problem Type ICD Code Onset Dates Problem Status W/U Status Risk SNOMED Code Notes Problem Odynophagia (R13.10) Active confirmed Odynophagia ([id number]) Encounters Encounter Location Date Provider Diagnosis [facility] [address] [address] 03/21/2024 Ke Knowles Odynophagia R13.10 ASSESSMENTS Encounter Date Diagnosis Assessment Notes Treatment Notes Treatment Clinical Notes 03/21/2024 Odynophagia (ICD-10 - R13.10) PLAN OF TREATMENT Medication Medication Name Sig Start Date Stop Date Notes Omeprazole 40 MG 1 Orally Once a day every morning for 30 day(s) 03/21/2024 Pending Test Test Name Order Date XR BARIUM SWALLOW-ESOPHAGUS 03/21/2024 Next Appt Details Provider Name:Ke Knowles , 10/11/2024 09:30:00 AM, [address] [place] [address] , [place], [place], [phone],
--- OUTSIDE RECORDS SUMMARY | 2024-10-03 16:51 | XMS_ITS | Patient Health Record ---
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 This patient is negative for the H63D pathogenic variant. Individuals with this genotype may have elevated serum transferrin iron saturation levels. This result reduces the likelihood of hereditary hemochromatosis (HH). However, it does not rule out the presence of other pathogenic variants within the HFE gene or a diagnosis of HH. The risk of this individual to carry an HFE pathogenic variant other than those tested in this assay depends greatly on family and clinical history as well as ethnicity. This assay does not test for other primary or secondary iron overload disorders. Consider genetic counseling and DNA testing for at-risk family members. Laboratory results and submitted clinical information reviewed by Petrona Syed, Ph.D., [facility]. DETAILED ASSAY INFORMATION: Hereditary hemochromatosis (HH) is an autosomal recessive disorder of iron metabolism that can result in iron overload and potential organ failure. It is one of the most common genetic disorders in individuals of - ancestry, with an estimated carrier frequency of 10%. HH is caused by pathogenic variants in the HFE gene. Most individuals with HH (60-90%) are homozygous for the C282Y pathogenic variant. A smaller percentage of affected individuals are either compound heterozygous for the C282Y and H63D pathogenic variants (3%-8%), or homozygous for the H63D pathogenic variant (approximately 1%). METHODOLOGY: This assay detects two pathogenic variants in the HFE gene, C282Y (NM 976699.2: c.845G>A, p.Qgi749Owz) and H63D (NM 497027.2: c.187C>G, p.Ilg12Lic), that are commonly associated with HH. These variants are detected by multiplex-polymerase chain reaction (PCR) amplification, followed by restriction enzyme digestion and capillary electrophoresis. LIMITATIONS: This assay does not detect other pathogenic variants in the HFE gene that may be associated with HH. Although rare, false positive or false negative results may occur. All results should be interpreted in the context of clinical findings, relevant history, and other laboratory data. Health care providers, please contact your local [employer] genetic counselor or call [phone] ( ) for assistance with the interpretation of these results. This test was developed and its analytical performance characteristics have been determined by [facility]. It has not been cleared or approved by FDA. This assay has been validated pursuant to the CLIA regulations and is used for clinical purposes. For more information, please refer to http://education.Qqbaobao.com.com/faq/hemochromatosi s. (This link is being provided for informational/educational purposes only.) A portion of the testing was performed at [facility]. Reviewed and signed by Laboratory results and submitted clinical information reviewed by Petrona Syed, Ph.D., HCLD, Signed on 03/23/2024 at 23:28 THIS TEST WAS PERFORMED AT: [facility] [id number] [place] [address] FABIAN VELÁSQUEZ MD,PHD,BRIANNA Comprehensive Met. Panel Reviewed date:03/21/2024 08:35:24 PM Interpretation: Performing Lab:[facility], [address] [place] [phone] Notes/Report: Sodium 142 135-145 mmol/L Potassium 4.2 3.3-5.1 mmol/L Slight Hemoly sis Chloride 106 96-108 mmol/L Carbon Dioxide 27 22-29 mmol/L Anion Gap 13 12-20 Blood Urea Nitrogen 17 9-16 mg/dL Creatinine 0.85 0.5-1.4 mg/dL Estimated Glomerular Filt Rate > 60 NOTE: For -Cymraes individuals, multiply the result by 1.210. Chronic Kidney Disease: Estimated GFR < 60 mL/min/1.73m2 Severe Kidney Disease: Estimated GFR < 15 mL/min/1.73m2 Glucose Random 80 60-115 mg/dL Calcium 10.2 8.4-10.2 mg/dL Bilirubin Total 1.9 0.0-1.0 mg/dL Aspartate Amino Transferase 48 5-37 U/L Slight Hemolysis Alanine Aminotransferase 88 0-40 U/L Total Protein 8.4 6.5-8.0 g/dL Albumin Level 5.0 3.5-5.0 g/dL Alkaline Phosphatase 65 39-117 U/L IRON PROFILE Reviewed date:03/07/2024 07:41:40 PM Interpretation: Performing Lab:[facility], [address] [place] [phone] Notes/Report: Iron 183 45-160 mcg/dL Total Iron Binding Capacity 348 228-428 mcg/d L Percent Iron Saturation 53 15-50 % Unsaturated Iron Binding 165 Ferritin Reviewed date:03/07/2024 07:41:34 PM Interpretation: Performing Lab:[facility], [address] [place] [phone] Notes/Report: Ferritin 214 20-250 ng/mL Lipid Panel Reviewed date:03/08/2024 07:23:01 PM Interpretation: Performing Lab:[facility], [address] [place] [phone] Notes/Report: Triglycerides 79 <150 mg/dL Desirable Triglyceride: less than 150 mg/dL Borderline High Triglyceride 150-199 mg/dL High Triglyceride: 200-499 mg/dL Very High Triglyceride: greater than or equal to 5OO mg/dL Cholesterol 156 <200 mg/dL Desirable Cholesterol: less than 200 mg/dL Borderline High Cholesterol: 200-239 mg/dL High Cholesterol: greater than 239 mg/dL LDL Cholesterol Calculated 97 <100 mg/dL Desirable LDL: less than 100 mg/dL Near Optimal/Above Optimal LDL: 110-129 mg/dL Borderline High LDL: 130-159 mg/dL High LDL: 160-189 mg/dL Very High LDL: greater than or equal to 190 mg/dL HDL Cholesterol 44 >40 mg/dL Desirable HDL: greater than 40 mg/dL Note: This HDL assay may give artificially low results in patients with liver disease. Ceruloplasmin Reviewed date:03/15/2024 11:34:43 PM Interpretation: Performing Lab:[facility], [address] [place] [phone] Notes/Report: Ceruloplasmin 23 14-30 mg/dL THIS TEST WAS PERFORMED AT: [facility] [address] [place] [phone] ESPERANZA FORBES MD Alpha 1 Anti-trypsin Reviewed date:03/15/2024 11:34:52 PM Interpretation: Performing Lab:[facility], [address] [place] [phone] Notes/Report: Alpha 1 Anti-trypsin 134 83-199 mg/dL THIS TEST WAS PERFORMED AT: [facility] [address] [place] [phone] ESPERANZA FORBES MD Liver Fibrosis Pnl Reviewed date:03/15/2024 11:35:10 PM Interpretation: Performing Lab:[facility], [address] [place] [phone] Notes/Report: Liver Fibrosis Score 0.72 Liver Fibrosis Stage F3 Liver Fibrosis Interpretation SEE NOTE advanced fibrosis Fibro Test Score (f) Metavir Score f>=0 and f<=0.21 : F0 (no fibrosis) f>0.21 and f<=0.27 : F0-F1 (no fibrosis) f>0.27 and f<=0.31 : F1 (minimal fibrosis) f>0.31 and f<=0.48 : F1-F2 (minimal fibrosis) f>0.48 and f<=0.58 : F2 (moderate fibrosis) f>0.58 and f<=0.72 : F3 (advanced fibrosis) f>0.72 and f<=0.74 : F3-F4 (advanced fibrosis) f>0.74 and f<=1.00 : F4 (severe fibrosis) Nec Inflam Act Score 0.60 Nec Inflam Act Grade A2-A3 Nec Inflam Act Interpretation SEE NOTE significant activity ActiTest Score (a) Metavir Score a>=0 and a<=0.17 : A0 (no activity) a>0.17 and a<=0.29 : A0-A1 (no activity) a>0.29 and a<=0.36 : A1 (minimal activity) a>0.36 and a<=0.52 : A1-A2 (minimal activity) a>0.52 and a<=0.60 : A2 (significant activity) a>0.60 and a<=0.62 : A2-A3 (significant activity) a>0.62 and a<=1.00 : A3 (severe activity) GNG-Vlvfc-2-Macroglobulin 348 106-279 mg/dL FIB-Haptoglobin 76 43-212 mg/dL FIB-Apolipoprotein A1 141 94-176 mg/dL FIB-Total Bilirubin 1.7 0.2-1.2 mg/dL FIB-GGT 28 3-95 U/L FIB-ALT 75 9-46 U/L Reference ID [id number] Footnote SEE NOTE The reliability of results is dependent on compliance with the preanalytical and analytical conditions recommended by sickweather. The tests have to be deferred for: acute hemolysis, acute hepatitis, acute inflammation, extra hepatic cholestasis. The advice of a specialist should be sought for interpretation in chronic hemolysis and Gilbert's syndrome. The test interpretation is not validated in liver transplant patients. Isolated extreme values of one of the components should lead to caution in interpreting the results. In case of discordance between a biopsy result and a test, it is recommended to seek the advice of a specialist. The causes of these discordances could be due to a flaw of the test or to a flaw in the biopsy: i.e. a liver biopsy has a 33% variability rate for one fibrosis stage. FibroTest is interpretable for chronic hepatitis B and C, alcoholic and non alcoholic steatosis. ActiTest is interpretable for chronic hepatitis B and C. The performance characteristics have been determined by [facility]. It has not been cleared or approved by the U.S. Food and Drug Administration. Performance characteristics refer to the analytical performance of the test. [employer], the associated logo, [employer] and all associated [employer] mcclendon are the registered trademarks of [employer]. All third green party mcclendon - (R) and (TM) - are the property of their respective owners. (C) [id number] [employer]. All rights reserved. THIS TEST WAS PERFORMED AT: [facility] [address] [place] [address] FABIAN VELÁSQUEZ MD,PHD,BRIANNA CARLOS Reflex Titer and Pattern Reviewed date:03/13/2024 11:20:27 PM Interpretation: Performing Lab:[address] [phone] Notes/Report: Anti Nuclear Antibody Screen NEGATIVE NEGATIVE CARLOS IFA is a first line screen for detecting the presence of up to approximately 150 autoantibodies in various autoimmune diseases. A negative CARLOS IFA result suggests an CARLOS-associated autoimmune disease is not present at this time, but is not definitive. If there is high clinical suspicion for Sjogren's syndrome, testing for anti-SS-A/Ro antibody should be considered. Anti-Kierra-1 antibody should be considered for clinically suspected inflammatory myopathies. AC-0: Negative International Consensus on CARLOS Patterns (https://doi.org/10.1515/ccl m-6100-6830) For additional information, please refer to http://education.Parse.Therative/faq/PNX048 (This link is being provided for informational/ educational purposes only.) THIS TEST WAS PERFORMED AT: [facility] [address] [place] [phone] ESPERANZA FORBES MD Anti Nuclear Antibody Titer TNP Anti Nuclear Antibody Pattern TNP CARLOS Titer 2 TNP CARLOS Pattern 2 TNP CARLOS Titer 3 TNP CARLOS Pattern 3 TNP Mitochondrial Antibody Reviewed date:03/15/2024 11:34:26 PM Interpretation: Performing Lab:[address] [phone] Notes/Report: Mitochondrial Antibodies NEGATIVE NEGATIVE THIS TEST WAS PERFORMED AT: [facility] [address] [place] [phone] ESPERANZA FORBES MD Mitochondrial Ab Titer TNP Smooth Muscle Antibody Reviewed date:03/15/2024 11:34:34 PM Interpretation: Performing Lab:[facility], [address] [place] [phone] Notes/Report: Smooth Muscle Antibody <20 <20 U Reference Range: <20 U: Negative >or=20 U: Positive Antibodies recognizing actin are the main component of smooth muscle antibodies associated with auto- immune liver disease. Actin antibodies are found in approximately 75% of patients with autoimmune hepatitis (AIH) type 1, approximately 65% of patients with autoimmune cholangitis, approximately 30% of patients with primary biliary cirrhosis and approximately 2% of healthy controls. High values are closely correlated with AIH type 1. THIS TEST WAS PERFORMED AT: [facility] [address] CARROL MCMILLAN MD,PHD Hepatitis A,B,C Profile Reviewed date:03/09/2024 02:51:02 PM Interpretation: Performing Lab:[facility], [address] [place] [phone] Notes/Report: Hepatitis A Antibody IgM Nonreactive Nonreactive IgM antibodies to HAV not detected; does not exclude early acute or recovered HAV infection. Hepatitis B Surface Antibody NONREACTIVE Nonreactive Nonreactive: < 8.00 mIU/mL Hepatitis B Core Antibody Nonreactive Nonreactive Hepatitis C Antibody Nonreactive Nonreactive Antibodies to HCV not detected; does not exclude early acute HCV infection. Hepatitis B Surface Antigen Negative Negative Hemoglobin A1c Reviewed date:03/07/2024 07:41:13 PM Interpretation: Performing Lab:[facility], [address] [place] [phone] Notes/Report: Hemoglobin A1c % 5.1 <6.0 % Hemoglobin A1C Reference Range Adults: 4.8 - 6.0 % Non diabetic: < 6.0 % Goal: < 7.0 % Additional Action Suggested: > 8.0 % Note: Hemoglobin A1c results are invalid for patients with abnormal amounts of HbF. Blood transfusions may impact the HbA1c concentration in the patient sample. Estimated Average Glucose 100 eAG = Estimated average glucose which is %A1C expressed as average glucose, using the formula of the W9P-Xpizkkq Average Glucose study (ADAG), Diabetes Care, Vol.31,#8, 2007 REASON FOR REFERRAL Referring Provider First Name Carlos Referring Provider Last Name Po Referring Provider Speciality Internal M edicine Referred Organization [facility] Referred Provider Ke Knowles Referred Address [address] [facility],[place],[address],[place] Referred Provider Specialty Gastroentero logy General Notes Nancy Baron 024 11:27:36 AM EDT > requested an [facility] referral for visit with Dr Knowles on 01-31-2024. Requested from Dr. Cole's office at [phone] Referral Priority Routine Referring Provider First Name Carlos Referring Provider Last Name Douglas Referring Provider Speciality Internal M edicine Referred Organization [facility] Referred Provider Ke Knowles Referred Address [address] [facility],[place],[address],[place] Referred Provider Specialty Gastroentero logy General Notes Nancy Baron 2024 10:22:28 AM >requested an [facility] referral for visit with Dr. Knowles on [phone] Dr cole Referral Priority Routine MEDICATIONS Medication SIG (Take, Route, Frequency, Duration) Notes Start Date End Date Status amLODIPine Besylate 5 MG TAKE 1 TABLET BY MOUTH DAILY Oral for 90 I10,Unavailable Active Lisinopril 10 MG 1 tablet Orally Once a day for 30 day(s) Active Omeprazole 40 MG 1 Orally Once a day every morning for 30 day(s) 03/21/2024 Active IMMUNIZATIONS Vaccine Route Administration Date Status Comme nts Influenza Unknown 02/04/2020 Refused Influenza Unknown 01/31/2024 Refused SOCIAL HISTORY Tobacco Use: Social History Observation [...] W/U Status Risk SNOMED Code Notes Problem Diarrhea, unspecified type (R19.7) Active confirmed 45724199 Problem Non-intractable vomiting without nausea, unspecified vomiting type (R11.11) Active confirmed 309588300 Problem Family history of colon cancer (Z80.0) Active confirmed 860939927 Problem Encounter for screening for malignant neoplasm of colon (Z12.11) Active confirmed 157452649 Problem Abnormal CT scan, stomach (R93.3) Active confirmed 440531019 Problem Abnormal upper gastrointestinal barium series (R93.3) Active confirmed 478457172 Problem Nausea with vomiting, unspecified (R11.2) Active confirmed Nausea a nd vomiting (10677695) Problem Diarrhea (R19.7) Active confirmed Diarr hea (40559153) Problem Fatty liver (K76.0) Active confirmed Fa tty liver (995077411) Problem Iron excess (E83.19) Active confirmed Iron excess (24089286) Problem Elevated liver function tests (R94.5) Active confirmed Elevated liver enzymes level (735895819) Problem Splenomegaly (R16.1) Active confirmed Splenomegaly (26632832) Problem Family history of colon cancer in mother (Z80.0) Active confirmed Family histor y of malignant neoplasm of gastrointestinal tract (932498232) Problem Abdominal pain, LUQ (R10.12) Active confirmed Left upper quadrant pain (615358065) Problem Odynophagia (R13.10) Active confirmed Odynophagia (85091731) Problem Chronic GERD (K21.9) Active confirmed Gastroesophagea l reflux disease (230706560) VITAL SIGNS Temperature 98.4 degrees Fahrenheit 06/12/2024 Blood pressure diastolic 00 mm Hg 06/12/2024 Height 70 in 06/12/2024 Blood pressure systolic 000 mm Hg 06/12/2024 Weight 220 lbs 06/12/2024 BMI 31.56 kg/m2 06/12/2024 Encounters Encounter Location Date Provider Diagnosis [facility] [address] [place] [address] 01/31/2024 Ke Knowles Fatty liver K76.0 ; Elevated liver function tests R94.5 ; Iron excess E83.19 ; Splenomegaly R16.1 ; Family history of colon cancer in mother Z80.0 and Abdominal pain, LUQ R10.12 [facility] [address] [place] [address] 06/12/2024 Ke Knowles Family history of colon cancer Z80.0 ; Fatty liver K76.0 ; Encounter for screening for malignant neoplasm of colon Z12.11 and Chronic GERD K21.9 [facility] [address] [place] [phone] 01/31/2024 Ke Knowles [facility] [address] [place] [phone] 03/05/2024 Ke Knowles [facility] [address] [place] [phone] 03/18/2024 Ke Knowles [facility] [address] [place] [phone] 03/21/2024 Ke Knowles Odynophagia R13.10 [facility] [address] [place] [phone] 04/03/2024 Ke Knowles ASSESSMENTS Encounter Date Diagnosis Assessment Notes Treatment Notes Treatment Clinical Notes 01/31/2024 Fatty liver (ICD-10 - K76.0) 01/31/2024 Elevated liver function tests (ICD-10 - R94.5) 06/12/2024 Fatty liver (ICD-10 - K76.0) Try to lose some weight and eat healthy to help the fatty liver. Avoid alcohol as well. 06/12/2024 Family history of colon cancer (ICD-10 - Z80.0) 03/21/2024 Odynophagia (ICD-10 - R13.10) 01/31/2024 Iron excess (ICD-10 - E83.19) 06/12/2024 Encounter for screening for malignant neoplasm of colon (ICD-10 - Z12.11) 01/31/2024 Splenomegaly (ICD-10 - R16.1) 06/12/2024 Chronic GERD (ICD-10 - K21.9) Minimize coffee and stop smoking to help the reflux. Use the Omeprazole as needed or daily, the 20 or 40mg. 01/31/2024 Family history of colon cancer in mother (ICD-10 - Z80.0) 01/31/2024 Abdominal pain, LUQ (ICD-10 - R10.12) PLAN OF TREATMENT Pending Test Test Name Order Date CHEM 7 PROFILE 01/31/2024 LIVER PROFILE 06/12/2024 IRON + IBC (FE) 01/31/2024 CBC w DIFF 01/31/2024 HEMOCHROMATOSIS (C282Y) 01/31/2024 GIARDIA AG, STOOL EIA 09/29/2020 OVA & PARASITES (O&P) 09/29/2020 CULTURE, STOOL 09/29/2020 NUC GASTRIC ANTRUM EMPTYING 09/29/2020 XR BARIUM SWALLOW-ESOPHAGUS 03/21/2024 FLUOR. ANTINUCLEAR AB SCREEN (SARA) 01/12 STOOL WBC 09/29/2020 C DIFFICILE RFLX PCR 09/29/2020 Prothrombin Time INR 01/31/2024 Ferritin 01/31/2024 Lipid Panel 01/31/2024 Ceruloplasmin 01/31/2024 Alpha 1 Anti-trypsin 01/31/2024 Liver Fibrosis Pnl 01/31/2024 Mitochondrial Antibody 01/31/2024 Smooth Muscle Antibody 01/31/2024 Hepatitis A,B,C Profile 01/31/2024 US abdomen comp w elastography Hemoglobin A1c 01/31/2024 Future Test Test Name Order Date UPPER GI ENDOSCOPY 02/06/2020 COLONOSCOPY 02/06/2020 COLONOSCOPY 06/12/2024 Next Appt Details Provider Name:Ke Knowles , 10/11/2024 09:30:00 AM, [address] [place] [address] , [place], [place], [phone], Insurance Providers Payer Name Payer Address Payer Phone Subscriber Number Group Number Insured Name Patient Relationship to Insured Coverage Start Date Coverage End Date [facility] [employer] CLAIM[employer] [address] [place] [address] [id number] ROB BROOKE Self - patient is the insured MEDICAL (GENERAL) HISTORY Medical History History ICD Code Denies VA,DM,CVA,Lung disease,renal dise ase HTN Discrete episodes of nausea, diarrhea, and some vomiting during winter months over the past few years of unclear etiology. A CAT scan in June of 2019 during an acute episode revealed a distended stomach, but no other abnormalities. An upper GI series in 2018 reveals some possible mild duodenitis and some reflux. During the June, episode he had normal LFTs, lipase, and CBC. Stool specimens at that time revealed heme-positive stool, positive wbc's, and negative C. difficile and H. pylori. A stool specimen for culture was sent but due to a lab error was not performed. EGD in 03/2020--small hiatal hernia, otherwise normal exam--biopsies from the duodenum were negative for celiac disease and Giardia, biopsies from the stomach were negative for H. pylori, and biopsies from the esophagus were negative for Dixon's esophagus Colonoscopy in 03/2020 reveal ed an inflammatory polyp and hyperplastic polyp, both of which were removed; there was no evidence of any inflammatory bowel disease; biopsies from the colon were negative for any underlying microscopic colitis Upper endoscopy in [address] Fox for evaluation of left upper quadrant pain was completely negative including duodenal, gastric, and esophageal biopsies Abdominal ultrasound and abd ominal MRI in 2022 revealed some fatty liver and slight splenomegaly, but was otherwise unremarkable Fatty liver and elevated LFT s in 2022 with a negative limited workup other than iron saturation of 50% and ferritin of a 415. The remainder of his liver workup was negative in 2023. 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
[2024-10-03 17:11] LABS: Basophils Percent Auto 0.6 % (0-2); Eosinophils Absolute Auto 0.2 X10*3/uL (0.0-0.4); Eosinophils Percent Auto 2.4 % (0-4); Hematocrit 43.5 % (42.0-52.0); Hemoglobin 15.6 g/dl (14.0-18.0); Imm Gran Abs Auto 0.02 X10*3/uL (0.00-0.03); Imm Gran Pct Auto 0.3 % (0.0-0.4); Lymphocytes Absolute Auto 2.9 X10*3/uL (1.2-4.9); Lymphocytes Percent Auto 42.5 % (20-40); Mean Corpuscular HGB Conc 35.9 g/dl (31.0-36.0); Mean Corpuscular Volume 89.3 fL (80.0-98.0); Mean Platelet Volume 10.1 fL (9.4-12.4); Monocytes Absolute Auto 0.6 X10*3/uL (0.1-1.2); Monocytes Percent Auto 8.7 % (2-11); Neutrophils Absolute Auto 3.1 x10*3/uL (2.0-8.3); Neutrophils Percent Auto 45.5 % (45-73); Platelet Count 219 X10*3/uL (160-400); Red Blood Count 4.87 X10*6/uL (4.60-5.80); Red Cell Distribution Width 12.8 % (11.0-16.0); White Blood Count 6.8 X10*3/uL (4.8-10.8)
[2024-10-03 17:12] LABS: Appearance Urine Clear; Color Urine Dark Yellow; Glucose Urine UA Negative (Negative); Leukocyte Esterase Urine Negative (Negative); Nitrite Urine Negative (Negative); PH 5.5 (5.0-9.0); Specific Gravity - Urine >= 1.030 (1.005-1.025); Urine Blood Negative (Negative); Urine Ketones Negative (Negative); Urine Protein Negative (Neg-Trace)
[2024-10-03 17:40] LABS: Albumin Level 4.8 g/dL (3.5-5.0); Alkaline Phosphatase 77 U/L (39-117); Aspartate Amino Transferase 58 U/L (5-37); Bilirubin Direct 0.5 mg/dL (0.0-0.5); Bilirubin Total 1.6 mg/dL (0.0-1.0)
[2024-10-03 17:46] LABS: Albumin Level 4.7 g/dL (3.5-5.0); Alkaline Phosphatase 74 U/L (39-117); Anion Gap 13 (12-20); Aspartate Amino Transferase 61 U/L (5-37); Bilirubin Total 1.6 mg/dL (0.0-1.0); Blood Urea Nitrogen 21 mg/dL (9-16); C Reactive Protein 0.14 mg/dL (< or = 0.50); Calcium 9.6 mg/dL (8.4-10.2); Carbon Dioxide 23 mmol/L (22-29); Chloride 108 mmol/L (96-108); Estimated Glomerular Filt Rate > 60; Glucose Random 89 mg/dL (60-115); Potassium 3.6 mmol/L (3.3-5.1); Sodium 140 mmol/L (135-145)
[2024-10-03 17:49] LABS: Erythrocyte Sedimentation Rate 5 MM/HR (0-15)
[2024-10-03 18:00] LABS: Alanine Aminotransferase 128 U/L (0-40)
[2024-10-03 18:02] LABS: Alanine Aminotransferase 130 U/L (0-40); Free T4 (Free Thyroxine) 1.07 ng/dL (0.71-1.85); Thyroid Stimulating Hormone 0.95 uIU/mL (0.32-4.0)
[2024-10-03 18:12] LABS: Folate 14.2 ng/mL (> or = 4.0); Vitamin B12 509 pg/mL (200-900)
== END 2024-10-03 16:31 | disposition home or self-care (01) ==
LOC: HO.LAB 16:30
PROVIDERS: Absent Provider Internal Medicine; PCP Internal Medicine; Visit Provider Internal Medicine
DX: K76.0 Fatty (change of) liver, not elsewhere classified (principal); R30.0 Dysuria
CPT/HCPCS: 36415; 80053; 80076; 81003; 82248; 82607; 82746; 84439; 84443; 85025; 85652; 86140

== ENCOUNTER 2024-10-07 16:11 | Outpatient (AMB) | payer BC, SELFPAY ==
[2024-10-07 16:29] VITALS: BP 136/80; PULSE 68; O2SAT 97; BMI 32.9
--- NOTE | 2024-10-07 16:29 | A.OFFPC_ITS ---
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 Accompanied by: Self / Same As Patient Allergies No Known Allergies Allergy (Verified 10/07/24 16:29) Medication List - Last Reconciled 10/07/24 by Carlos Cole MD amlodipine 5 mg PO DAILY blood pressure monitor As directed lisinopril 40 mg PO DAILY naproxen 500 mg PO BID 30 days Tobacco use date assessed: 10/07/24 Dental Screening Dental Screen Date: 10/07/24 Did you have a dental visit in the last 12 months?: No Did you have a dental problem in the last 6 months where you did not have access to dental care?: No Was dental information given to patient?: Patient has dentist HPI annual exam HPI Details History of Present Illness The patient is a 44-year-old male presenting for his annual physical examination and management of existing health conditions. He has a history of obesity, as evidenced by a noted 10-pound weight gain since May. His gastroesophageal reflux disease (GERD) is ongoing and requires management. The patient is a smoker, which significantly impacts his health. He has essential hypertension, which is managed with lisinopril 40 mg once a day and amlodipine 5 mg once a day. The patient has a diagnosis of anxiety disorder, which contributes to his overall health status. His ultrasound of the abdomen has shown nonalcoholic fatty liver disease (hepatic steatosis). He was treated for right elbow lateral epicondylitis after experiencing bilateral elbow pain, having seen an selling specialist in July and was provided with occupational therapy and anti- inflammatory medications. Past diagnostic results show elevated liver function tests, with LDL noted as 97 mg/dL and triglycerides at 79 mg/dL in February 2024. B12, folic acid, and thyroid levels were within normal limits. Blood work in September 2023 was normal. His last colon test was performed in 2019. Health Maintenance - Blood pressure management using lisino pril 40 mg and amlodipine 5 mg daily - Lifestyle modifications with a recomme nded low-fat diet and exercise plan - Advised smoking cessation to reduce as sociated health risks - Surveillance of liver function tests d ue to known nonalcoholic fatty liver disease - Continued gastroenterology follow-up f or GERD management Social History - The patient is a smoker and was strong ly advised to quit smoking due to health risks. - The patient engages in some degree of physical activity though specifics on frequency and type were not discussed. - Nutritional intake adjustments with a focus on a low-fat diet are advised. Review of Systems - EMPT Physical Exam General: Cooperative, healthy appearing, comfortable, no acute distress and well developed Orientation: Patient oriented x3 Limitations: No limitations Head: Normal to inspection Ears: Hearing grossly normal bilaterally Nose: Normal external nose present Face and sinus: Normal facial exam Eyes: Appearance normal, both eyes and all related structures Neck: Normal visual inspection and Yes full ROM Respiratory: Normal respiratory effort and able to speak in complete sentences. Clear to auscultation bilaterally Cardiovascular: Regular rate and rhythm. Normal S1 and S2 GI: Normal to inspection. Soft to palpation and nontender Skin: No rashes or lesions noted Neuro: Patient oriented x3 Extremities: Normal to inspection Results - Labs: Elevated liver function tests (s pecific values not provided), LDL 97 mg/dL, triglycerides 79 mg/dL as of February 2024. - Tests and Diagnostics: Abdominal ultra sound showing nonalcoholic fatty liver disease (hepatic steatosis). Plan - Continue management of essential hyper tension with lisinopril and amlodipine. - Advise and support patient in smoking cessation efforts. - Monitor liver function tests regularly given elevated past results. - Guide patient on adhering to a low-fat diet and exercise plan to address obesity and overall health improvement. - Follow up with gastroenterology for on going GERD management. - Provide occupational therapy as needed and utilize anti-inflammatory medication for right elbow lateral epicondylitis. Patient was informed and verbally consented to the use of an ambient scribe for clinic note documentation during this visit. Discussion Notes I discussed with the patient the importance of lifestyle modifications, including dietary changes and increased physical activity, to address obesity and improve his overall health status. We reviewed the importance of smoking cessation in mitigating various health risks, including cardiovascular and liver-related conditions. The management of essential hypertension with current medication was reconfirmed, and the patient was encouraged to maintain regular follow-ups. Engagement with gastroenterology for GERD was emphasized, as was consistent monitoring of liver function tests due to the presence of hepatic steatosis. We discussed the ongoing need for occupational therapy for his elbow pain, focusing on pain management and function improvement. Patient Instructions - Continue prescribed lisinopril and aml odipine daily for blood pressure management. - Follow a low-fat diet and engage in re gular physical exercise as recommended. - Strongly consider quitting smoking; re sources for support are available. - Attend scheduled follow-ups with [facility] oenterology and conduct regular liver function testing. - Implement physician-provided occupatio nal therapy strategies for elbow pain management. - Return for regular annual checkups and immediately if any new symptoms or concerns arise. [facility] Medical History Elevated LFTs Rash and other nonspecific skin eruption Adult general medical exam Decreased hearing of right ear Right otitis media Benign essential hypertension Right hand pain Screening for hyperlipidemia Intermittent left-sided chest pain History of intravenous drug abuse Irritable bowel disease Tobacco abuse GERD (gastroesophageal reflux disease) Obesity (BMI 30-39.9) Surgical History History of esophagogastroduodenoscopy (EGD) History of colonoscopy Family History Mother Cancer Colon cancer Scleroderma Father High blood pressure Other Substance abuse Social History Housing: House Alcohol intake: current Alcohol intake frequency: holidays/special occasions only Comment: once a month 6 pack Patient Tobacco Use Status: Current everyday Tobacco user Tobacco use type: Cigarette Cigarette Packs Per Day: 1 Cigarettes Per Day: 15 Years Smoked: 25 years of smoking Packs Per Year: 0 Packs per year/per ci.00 e-Cigarette/Vaping Use: Never Used Second Hand Smoke Exposure: Yes service: No Current occupational status: employed Current occupational exposures/hazards: No Cognitive needs: No Hearing needs: No Vision needs: Yes (glasses) Questionnaire PHQ-9 Over the last 2 weeks, how often have you been bothered by any of the following problems? 1. Little interest or pleasure in doing things: not at all 2. Feeling down, depressed, or hopeless: several days 3. Trouble falling or staying asleep, or sleeping too much: not at all 4. Feeling tired or having little energy: not at all 5. Poor appetite or overeating: several days 6. Feeling bad about yourself - or that you are a failure or have let yourself or your family down: not at all 7. Trouble concentrating on things, such as reading the newspaper or watching television: several days 8. Moving or speaking so slowly that other people could have noticed. Or the opposite - being so fidgety or restless that you have been moving around a lot more than usual: not at all 9. Thoughts that you would be better off or of hurting yourself in some way: not at all Total score: 3 Source: Developed by Drs. Ke Navarro, Keisha Miranda, Anthony Washington and colleagues, with an educational keisha from [employer]. Thrive Questionnaire Date Thrive assessed: 10/07/24 I am a: Patient What is your living situation today?: I have a steady place to live Within the past 12 months, did the food you bought not last and you didn't have the money to get more?: Never true Within the past 12 months, did you worry whether your food would run out before you got money to buy more?: Never true Do you have trouble paying for medicines?: No Do you have trouble getting transportation to medical appointments?: No Do you have trouble paying your heating and electricity bill?: No Do you have trouble taking care of your child, family member or friend?: No Do you have trouble with day-to-day activities such as bathing, preparing meals, shopping, managing finances, etc.?: No Are you currently unemployed and looking for a job?: No Are you interested in more education?: No Please select the resources that you would like help with: None Currently or been in a relationship where the following occur: No concerns reported THRIVE Score: 0 AUDIT C Alcohol Use Questionnaire (AUDIT-C) 1. How often do you have a drink containing alcohol?: Monthly or less 2. How many drinks containing alcohol do you have on a typical day when you are drinking?: 1 or 2 3. How often do you have six or more drinks on one occasion?: Never Total Score: 1 ÁNGELA-7 AMB Questionnaire ÁNGELA-7 Date ÁNGELA - 7 assessed: 10/07/24 Feeling nervous, anxious, or on edge: 1 = Several days Not being able to stop or control worryin = Several days Worrying too much about different things: 1 = Several days Trouble relaxin = Several days Being so restless that it is hard to sit still: 0 = Not at all Becoming easily annoyed or irritable: 0 = Not at all Feeling afraid as if something awful might happen: 1 = Several days Total ÁNGELA-7 score (0-4 normal; 5-9 mild; 10-14 moderate; 15-21 severe): 5 Source: Developed by Drs. Ke Navarro, Keisha Miranda, Anthony Washington and colleagues, with an educational keisha from [employer]. Review of Systems Const Denies poor appetite and Denies weakness Eyes Denies no additional complaints ENT Reports Normal hearing present, Denies dizziness, Denies nasal congestion, Denies tinnitus and Denies sore throat Card Denies chest pain, Denies syncope, Denies rapid heart rate and Denies dyspnea Resp Denies cough and Denies dyspnea GI Denies change in stool character, Reports constipation, Denies diarrhea, Denies nausea and Denies vomiting Denies dysuria and Denies urinary frequency Neuro Reports Normal hearing present, Denies confusion, Denies dizziness, Denies syncope and Denies weakness Psych Denies confusion Physical exam (Primary Care) Vital Signs: Last Vital Signs Pulse 68 10/07/24 16:29 BP 136/80 10/07/24 16:29 Pulse Ox 97 10/07/24 16:29 Oxygen Delivery Method Room Air 10/07/24 16:29 BMI result Body Mass Index 32.9 Tobacco/Smoking Status: Tobacco use Status Tobacco use date assessed 10/07/24 10/07/24 16:33 Patient Tobacco Use Status Current everyday Tobacco 10/07/24 16:33 Tobacco use type Cigarette 10/07/24 16:33 e-Cigarette/Vaping Use Never Used 10/07/24 16:33 PHQ-9: PHQ-9 Score PHQ-9: Total score 3 10/07/24 16:56 Thrive Assessment: Date of Thrive Assessment Date Thrive assessed 10/07/24 10/07/24 16:33 Currently or been in a relationship where the following occur: No concerns reported Const General: No confusion Orientation/consciousness: No confusion HENMT Head: Yes normocephalic Ears: external ears normal and TM's normal bilaterally Face and sinus: Yes normal facial exam Mouth: moist mucous membranes Throat: Yes tonsils normal Eyes Conjunctivae: conjunctivae normal Pupils: Equal, round and reactive pupils present and Pupil accommodation reflex normal Direct Ophthalmoscopy: normal light reflex Neck Neck: No lymphadenopathy Thyroid: Thyroid normal Chest Chest palpation & inspection: normal inspection of the chest Resp Effort & Inspection: normal respiratory effort and no audible wheezes Auscultation: clear to auscultation bilaterally, no crackles, no wheezes and lung sounds not diminished Cardio Rate: regular rate Rhythm: regular rhythm Peripheral pulses: radial pulses present and dorsalis pedis present GI Other: Colonoscopy this week Palpation (GI): no masses Auscultation: normal bowel sounds and normoactive bowel sounds Rectal Exam - Male: Yes deferred Other: Declined Skin General skin exam: no rashes or lesions noted Rashes: no rashes Neuro General: No confusion Cranial nerves: Yes Equal, round and reactive pupils present and Yes Normal hearing present Cognition (Neuro): normal cognition Gait exam (Neuro): Normal gait present Motor exam (neuro): 5/5 motor strength present throughout Deep tendon reflexes (DTR's): Right brachioradialis reflex intensity grade: 2+, Left brachioradialis reflex intensity grade: 2+, Right patellar reflex intensity grade: 2+ and Left patellar reflex intensity grade: 2+ Extrem General: No edema Coding Level of Care Code Est Pt Prev Care 40-64y(77196) Diagnoses Annual physical exam Z00.00 NAFLD (nonalcoholic fatty liver disease) K76.0 Tobacco abuse Z72.0 Obesity (BMI 30-39.9) E66.9 Gastroesophageal reflux disease without esophagitis K21.9 Esophagitis presence: without esophagitis Benign essential hypertension I10 Assessment & Plan Assessment & Plan (1) Annual physical exam: Code(s): Z00.00 - Encounter for general adult medical examination without abnormal findings Category: Medical Plan: Patient is advised to eat healthy, keep well hydrated, keep active and have adequate sleep. (2) NAFLD (nonalcoholic fatty liver disease): Comment: Ultrasound February 2024 Code(s): K76.0 - Fatty (change of) liver, not elsewhere classified Category: Medical Plan: Low-fat diet and exercise continue to follow up with Gastroenterology (3) Tobacco abuse: Code(s): Z72.0 - Tobacco use Category: Medical Plan: Patient was advised strongly to stop smoking summation point (4) Obesity (BMI 30-39.9): Code(s): E66.9 - Obesity, unspecified Category: Medical Plan: Diet and exercise (5) GERD (gastroesophageal reflux disease): Code(s): K21.9 - Gastro-esophageal reflux disease without esophagitis Category: Medical Qualifiers: Esophagitis presence: without esophagitis Qualified Code(s): K21.9 - Gastro-esophageal reflux disease without esophagitis Plan: Avoid the foods that causes that usually spicy foods, tomato products, juices, coffee, soda and foods that your sensitive to. After eating do not lie down, allow 3-4 hours before in lie down. And keep the head of bed above 30 degrees to avoid the acid from going up. (6) Benign essential hypertension: Code(s): I10 - Essential (primary) hypertension Category: Medical Plan: Continue with blood pressure medication. Decrease salt intake and exercise on lisinopril 40 mg once a day and amlodipine 5 mg once a day Plan History of Present Illness The patient is a 44-year-old male presenting for his annual physical examination and management of existing health conditions. He has a history of obesity, as evidenced by a noted 10-pound weight gain since May. His gastroesophageal reflux disease (GERD) is ongoing and requires management. The patient is a smoker, which significantly impacts his health. He has essential hypertension, which is managed with lisinopril 40 mg once a day and amlodipine 5 mg once a day. The patient has a diagnosis of anxiety disorder, which contributes to his overall health status. His ultrasound of the abdomen has shown nonalcoholic fatty liver disease (hepatic steatosis). He was treated for right elbow lateral epicondylitis after experiencing bilateral elbow pain, having seen an selling specialist in July and was provided with occupational therapy and anti- inflammatory medications. Past diagnostic results show elevated liver function tests, with LDL noted as 97 mg/dL and triglycerides at 79 mg/dL in February 2024. B12, folic acid, and thyroid levels were within normal limits. Blood work in September 2023 was normal. His last colon test was performed in 2019. Health Maintenance - Blood pressure management using lisinopril 40 mg and amlodipine 5 mg daily - Lifestyle modifications with a recommended low-fat diet and exercise plan - Advised smoking cessation to reduce associated health risks - Surveillance of liver function tests due to known nonalcoholic fatty liver disease - Continued gastroenterology follow-up for GERD management Social History - The patient is a smoker and was strongly advised to quit smoking due to health risks. - The patient engages in some degree of physical activity though specifics on frequency and type were not discussed. - Nutritional intake adjustments with a focus on a low-fat diet are advised. Review of Systems - EMPT Physical Exam General: Cooperative, healthy appearing, comfortable, no acute distress and well developed Orientation: Patient oriented x3 Limitations: No limitations Head: Normal to inspection Ears: Hearing grossly normal bilaterally Nose: Normal external nose present Face and sinus: Normal facial exam Eyes: Appearance normal, both eyes and all related structures Neck: Normal visual inspection and Yes full ROM Respiratory: Normal respiratory effort and able to speak in complete sentences. Clear to auscultation bilaterally Cardiovascular: Regular rate and rhythm. Normal S1 and S2 GI: Normal to inspection. Soft to palpation and nontender Skin: No rashes or lesions noted Neuro: Patient oriented x3 Extremities: Normal to inspection Results - Labs: Elevated liver function tests (specific values not provided), LDL 97 mg/dL, triglycerides 79 mg/dL as of February 2024. - Tests and Diagnostics: Abdominal ultrasound showing nonalcoholic fatty liver disease (hepatic steatosis). Plan - Continue management of essential hypertension with lisinopril and amlodipine. - Advise and support patient in smoking cessation efforts. - Monitor liver function tests regularly given elevated past results. - Guide patient on adhering to a low-fat diet and exercise plan to address obesity and overall health improvement. - Follow up with gastroenterology for ongoing GERD management. - Provide occupational therapy as needed and utilize anti-inflammatory medication for right elbow lateral epicondylitis. Patient was informed and verbally consented to the use of an ambient scribe for clinic note documentation during this visit. Discussion Notes I discussed with the patient the importance of lifestyle modifications, including dietary changes and increased physical activity, to address obesity and improve his overall health status. We reviewed the importance of smoking cessation in mitigating various health risks, including cardiovascular and liver-related conditions. The management of essential hypertension with current medication was reconfirmed, and the patient was encouraged to maintain regular follow-ups. Engagement with gastroenterology for GERD was emphasized, as was consistent monitoring of liver function tests due to the presence of hepatic steatosis. We discussed the ongoing need for occupational therapy for his elbow pain, focusing on pain management and function improvement. Patient Instructions - Continue prescribed lisinopril and amlodipine daily for blood pressure management. - Follow a low-fat diet and engage in regular physical exercise as recommended. - Strongly consider quitting smoking; resources for support are available. - Attend scheduled follow-ups with gastroenterology and conduct regular liver function testing. - Implement physician-provided occupational therapy strategies for elbow pain management. - Return for regular annual checkups and immediately if any new symptoms or concerns arise. Orders: Orders Complete Blood Count Auto Diff 6 Months I10 - Essential (primary) hypertension Comprehensive Met. Panel 6 Months I10 - Essential (primary) hypertension Free T4 (Free Thyroxine) 6 Months I10 - Essential (primary) hypertension Vitamin B12 and Folate 6 Months I10 - Essential (primary) hypertension Hemoglobin A1c 6 Months I10 - Essential (primary) hypertension Thyroid Stimulating Hormone 6 Months I10 - Essential (primary) hypertension Lipid Panel 6 Months E78.00 - Pure hypercholesterolemia, unspecified, I10 - Essential (primary) hypertension
--- OUTSIDE RECORDS SUMMARY | 2024-10-07 18:17 | XMS_ITS ---
Author Organization [facility] Address [address] [place] [id number] Care Team Providers Care Comparison Shopper Name Role Phone Po Carlos OCONNOR Primary Care Provider Ke Owen Unavailable [phone] Encounters Encounter Location Date Provider Diagnosis [facility] [address] [place] [id number] 04/03/2024 Ke Knowles PLAN OF TREATMENT Next Appt Details Provider Name:Ke Knowles , 10/11/2024 09:30:00 AM, [address] [facility] , [place], [place], [phone],
--- OUTSIDE RECORDS SUMMARY | 2024-10-07 18:17 | XMS_ITS | Patient Health Record ---
Author Organization [facility] Address [address] [place] [address] Care Team Providers Care Office Copy Selector Name Role Phone Carlos Cole MD Primary Care Provider Ke Owen Unavailable [phone] ALLERGIES No Known Allergies RESULTS Component Value Reference Range Notes DNA Analysis Hemochromatosis Reviewed date:06/12/2024 04:47:19 PM Interpretation: Performing Lab:[facility], [address] [place] [phone] Notes/Report: DNA Analysis Hemochromatosis See Below RESULT: [...] clinical information reviewed by Petrona Syed, Ph.D., [facility]. DETAILED ASSAY INFORMATION: Hereditary hemochromatosis (HH) is [...] variants in the HFE gene, C282Y (NM 474252.2: c.845G>A, p.Zii682Uep) and H63D (NM 480740.2: c.187C>G, p.Odm19Rbx), that are commonly associated with HH. These [...] Health care providers, please contact your local [employer] genetic counselor or call [phone] ( ) for assistance with the interpretation of these results. This test was developed and its analytical performance characteristics have been determined by [facility]. It has not been cleared or approved by FDA. This assay has been validated pursuant to the CLIA regulations and is used for clinical purposes. For more information, please refer to http://education.[employer].com/faq/hemochromatosi s. (This link is being provided for informational/educational purposes only.) A portion of the testing was performed at [facility]. Reviewed and signed by Laboratory results and submitted clinical information reviewed by Petrona Syed, Ph.D., HCLD, Signed on 03/23/2024 at 23:28 THIS TEST WAS PERFORMED AT: [facility] [address] [place] [address] FABIAN VELÁSQUEZ MD,PHD,BRIANNA Comprehensive Met. Panel Reviewed date:03/21/2024 08:35:24 PM Interpretation: Performing Lab:[facility], [address] [place] [phone] Notes/Report: Sodium 142 135-145 mmol/L Potassium 4.2 3.3-5.1 mmol/L Slight Hemoly sis Chloride 106 96-108 mmol/L Carbon Dioxide 27 22-29 mmol/L Anion Gap 13 12-20 Blood Urea Nitrogen 17 9-16 mg/dL Creatinine 0.85 0.5-1.4 mg/dL Estimated Glomerular Filt Rate > 60 NOTE: For -Martiniquais individuals, multiply the result by 1.210. Chronic [...] PROFILE Reviewed date:03/07/2024 07:41:40 PM Interpretation: Performing Lab:[facility], [address] [place] [phone] Notes/Report: Iron 183 45-160 mcg/dL Total Iron Binding Capacity 348 228-428 mcg/d L Percent Iron Saturation 53 15-50 % Unsaturated Iron Binding 165 Ferritin Reviewed date:03/07/2024 07:41:34 PM Interpretation: Performing Lab:[facility], [address] [place] [phone] Notes/Report: Ferritin 214 20-250 ng/mL Lipid Panel Reviewed date:03/08/2024 07:23:01 PM Interpretation: Performing Lab:[facility], [address] [place] [phone] Notes/Report: Triglycerides 79 <150 mg/dL Desirable Triglyceride: [...] Ceruloplasmin Reviewed date:03/15/2024 11:34:43 PM Interpretation: Performing Lab:[facility], [address] [place] [phone] Notes/Report: Ceruloplasmin 23 14-30 mg/dL THIS TEST WAS PERFORMED AT: [facility] [address] [place] [phone] ESPERANZA FORBES MD Alpha 1 Anti-trypsin Reviewed date:03/15/2024 11:34:52 PM Interpretation: Performing Lab:[facility], [address] [place] [phone] Notes/Report: Alpha 1 Anti-trypsin 134 83-199 mg/dL THIS TEST WAS PERFORMED AT: [facility] [address] [place] [phone] ESPERANZA FORBES MD Liver Fibrosis Pnl Reviewed date:03/15/2024 11:35:10 PM Interpretation: Performing Lab:[facility], [address] [place] [phone] Notes/Report: Liver Fibrosis Score 0.72 Liver Fibrosis [...] a>0.62 and a<=1.00 : A3 (severe activity) OQM-Dgiql-3-Macroglobulin 348 106-279 mg/dL FIB-Haptoglobin 76 43-212 mg/dL FIB-Apolipoprotein A1 141 94-176 mg/dL FIB-Total Bilirubin 1.7 0.2-1.2 mg/dL FIB-GGT 28 3-95 U/L FIB-ALT 75 9-46 U/L Reference ID [id number] Footnote SEE NOTE The reliability of results is dependent on compliance with the preanalytical and analytical conditions recommended by [facility]. The tests have to be deferred for: [...] The performance characteristics have been determined by [employer] [place]. It has not been cleared or approved by the U.S. Food and Drug Administration. Performance characteristics refer to the analytical performance of the test. [employer], the associated logo, [employer] [place] and all associated [facility] [employer] are the registered trademarks of [employer]. All third libertarian mcclendon - (R) and (TM) - are the property of their respective owners. (C) 0624-9382 [employer]. All rights reserved. THIS TEST WAS PERFORMED AT: [facility] [address] [place] [address] FABIAN VELÁSQUEZ MD,PHD,BRIANNA CARLOS Reflex Titer and Pattern Reviewed date:03/13/2024 11:20:27 PM Interpretation: Performing Lab:[address] [phone] Notes/Report: Anti Nuclear Antibody Screen NEGATIVE NEGATIVE [...] Negative International Consensus on CARLOS Patterns (https://doi.org/10.1515/ccl m-2079-1325) For additional information, please refer to http://education.[employer]im[employer]/faq/JEO800 (This link is being provided for informational/ educational purposes only.) THIS TEST WAS PERFORMED AT: [facility] [address] [place] [phone] ESPERANZA FORBES MD Anti Nuclear Antibody Titer TNP Anti Nuclear Antibody Pattern TNP CARLOS Titer 2 TNP CARLOS Pattern 2 TNP CARLOS Titer 3 TNP CARLOS Pattern 3 TNP Mitochondrial Antibody Reviewed date:03/15/2024 11:34:26 PM Interpretation: Performing Lab:[address] [phone] Notes/Report: Mitochondrial Antibodies NEGATIVE NEGATIVE THIS TEST WAS PERFORMED AT: [facility] [address] [place] [phone] ESPERANZA FORBES MD Mitochondrial Ab Titer TNP Smooth Muscle Antibody Reviewed date:03/15/2024 11:34:34 PM Interpretation: Performing Lab:[facility], [address] [place] [phone] Notes/Report: Smooth Muscle Antibody <20 <20 U [...] type 1. THIS TEST WAS PERFORMED AT: [facility] [address] CARROL MCMILLAN MD,PHD Hepatitis A,B,C Profile Reviewed date:03/09/2024 02:51:02 PM Interpretation: Performing Lab:[address] [phone] Notes/Report: Hepatitis A Antibody IgM Nonreactive Nonreactive [...] A1c Reviewed date:03/07/2024 07:41:13 PM Interpretation: Performing Lab:[facility], [address] [place] [phone] Notes/Report: Hemoglobin A1c % 5.1 <6.0 % [...] average glucose, using the formula of the I9M-Oguflum Average Glucose study (ADAG), Diabetes Care, Vol.31,#8, Mar. 2007 Liver Panel (Not yet reviewe d by provider) Interpretation: Performing Lab:[facility], [address] [place] [phone] Notes/Report: Bilirubin Total 1.6 0.0-1.0 mg/dL Bilirubin Direct 0.5 0.0-0.5 mg/dL Aspartate Amino Transferase 58 5-37 U/L Alanine Aminotransferase 128 0-40 U/L Total Protein 8.0 6.5-8.0 g/dL Albumin Level 4.8 3.5-5.0 g/dL Alkaline Phosphatase 77 39-117 U/L REASON FOR REFERRAL Referring Provider First Name Carlos Referring Provider Last Name Po Referring Provider Speciality Internal M edicine Referred Organization [facility] Referred Provider Ke Knowles Referred Address [address] [place] [address],[place], [place],[address],[place] Referred Provider Specialty Gastroentero logy General Notes Nancy Baron 024 11:27:36 AM EDT > requested an [facility] referral for visit with Dr Knowles on 01-31-2024. Requested from Dr. Cole's office at [phone] Referral Priority Routine Referring Provider First Name Carlos Referring Provider Last Name Po Referring Provider Speciality Internal M edicine Referred Organization [facility] Referred Provider Ke Knowles Referred Address [address] [place] [address],[place], [place],[address],[place] Referred Provider Specialty Gastroentero logy General Notes Nancy Baron 2024 10:22:28 AM >requested an [facility] referral for visit with Dr. Knowles on [phone] Dr cole Referral Priority Routine MEDICATIONS Medication [...] W/U Status Risk SNOMED Code Notes Problem Encounter for screening for malignant neoplasm of colon (Z12.11) Active confirmed 092547459 Problem Diarrhea (R19.7) Active confirmed Diarr hea (08275187) Problem Nausea with vomiting, unspecified (R11.2) Active confirmed Nausea a nd vomiting (38872546) Problem Fatty liver (K76.0) Active confirmed Fa tty liver (900062882) Problem Family history of colon cancer (Z80.0) Active confirmed 830537668 Problem Abnormal upper gastrointestinal barium series (R93.3) Active confirmed 601785636 Problem Iron excess (E83.19) Active confirmed Iron excess (66679016) Problem Abdominal pain, LUQ (R10.12) Active confirmed Left upper quadrant pain (544533649) Problem Abnormal CT scan, stomach (R93.3) Active confirmed 081785639 Problem Odynophagia (R13.10) Active confirmed Odynophagia (00313044) Problem Diarrhea, unspecified type (R19.7) Active confirmed 05647306 Problem Elevated liver function tests (R94.5) Active confirmed Elevated liver enzymes level (119658016) Problem Non-intractable vomiting without nausea, unspecified vomiting type (R11.11) Active confirmed 943054827 Problem Family history of colon cancer in mother (Z80.0) Active confirmed Family histor y of malignant neoplasm of gastrointestinal tract (363011531) Problem Splenomegaly (R16.1) Active confirmed Splenomegaly (14526126) Problem Chronic GERD (K21.9) Active confirmed Gastroesophagea l reflux disease (275950620) VITAL SIGNS Temperature 98.4 degrees Fahrenheit 06/12/2024 Blood pressure diastolic 00 mm Hg 06/12/2024 Height 70 in 06/12/2024 Blood pressure systolic 000 mm Hg 06/12/2024 Weight 220 lbs 06/12/2024 BMI 31.56 kg/m2 06/12/2024 Encounters Encounter Location Date Provider Diagnosis [facility] [address] [place] [phone] 01/31/2024 Ke Knowles Fatty liver K76.0 ; Elevated liver function tests R94.5 ; Iron excess E83.19 ; Splenomegaly R16.1 ; Family history of colon cancer in mother Z80.0 and Abdominal pain, LUQ R10.12 [facility] [address] [place] [address] 06/12/2024 eK Knowles Family history of colon cancer Z80.0 ; Fatty liver K76.0 ; Encounter for screening for malignant neoplasm of colon Z12.11 and Chronic GERD K21.9 [facility] [address] [place] [phone] 01/31/2024 Ke Knowles [facility] [address] [place] [phone] 03/05/2024 Ke Knowles [facility] [address] [place] [phone] 03/18/2024 Ke Knowles [facility] [address] [place] [address] 03/21/2024 Ke Knowles Odynophagia R13.10 [facility] [address] [place] [phone] 04/03/2024 Ke Knowles ASSESSMENTS Encounter Date Diagnosis [...] Provider Name:Ke Knowles , 10/11/2024 09:30:00 AM, [address] [place] [address] , [place], [place], [phone], Insurance Providers Payer Name Payer Address Payer Phone Subscriber Number Group Number Insured Name Patient Relationship to Insured Coverage Start Date Coverage End Date [facility] [employer] [facility] [address] [place] [address] [phone] [id number] ROB BROOKE Self - patient is the insured MEDICAL (GENERAL) HISTORY Medical History History ICD Code Denies [place],DM,CVA,Lung disease,renal dise ase HTN Discrete episodes of [...]
--- OUTSIDE RECORDS SUMMARY | 2024-10-07 18:17 | XMS_ITS ---
Author Organization [facility] Address [address] [place] [address] Care Team Providers Care Emergency Medicine Medical Director Name Role Phone Carlos Cole MD Primary Care Provider Ke Owen Unavailable [phone] ALLERGIES No Known Allergies REASON FOR VISIT [...] (K21.9) Active confirmed Gastroesophagea l reflux disease (960277255) VITAL SIGNS Temperature 98.4 degrees Fahrenheit 06/12/20 24 Blood pressure systolic 000 mm Hg 06/12/20 24 Blood pressure diastolic 00 mm Hg 024 Height 70 in 06/12/2024 Weight 220 lbs 06/12/2024 BMI 31.56 kg/m2 06/12/2024 Encounters Encounter Location Date Provider Diagnosis [facility] [address] [place] [address] 06/12/2024 Ke Knowles Family history of colon [...] Provider Name:Ke Knowles , 10/11/2024 09:30:00 AM, [address] [place] [address] , [place], [place], [phone], Progress Notes * Examination Category Sub-Category Detail [...]
--- OUTSIDE RECORDS SUMMARY | 2024-10-07 18:18 | XMS_ITS ---
Author Organization [facility] Address [address] [place] [address] Care Team Providers Care [employer] Systems Programmer Name Role Phone Po Carlos OCONNOR Primary Care Provider Ke Owen [phone] MEDICATIONS Medication SIG (Take, Route, Fr equency, Duration) Notes Start Date End Date Status Omeprazole 40 MG 1 Orally Once a day every morning for 30 day(s) 03/21/2024 Active PROBLEMS Problem Type ICD Code Onset Dates Problem Status W/U Status Risk SNOMED Code Notes Problem Odynophagia (R13.10) Active confirmed Odynophagia (53319967) Encounters Encounter Location Date Provider Diagnosis [facility] [address] [address] 03/21/2024 Ke Knowles Odynophagia R13.10 ASSESSMENTS Encounter [...] Provider Name:Ke Knowles , 10/11/2024 09:30:00 AM, [address] [place] [address] , [place], [place], [phone],
== END 2024-10-07 17:46 | disposition home or self-care (01) ==
PROVIDERS: PCP Internal Medicine; Visit Provider Internal Medicine
DX: Z00.00 Encounter for general adult medical examination without abnormal findings (principal); K76.0 Fatty (change of) liver, not elsewhere classified; Z68.32 Body mass index [BMI] 32.0-32.9, adult; E66.9 Obesity, unspecified; Z72.0 Tobacco use; K21.9 Gastro-esophageal reflux disease without esophagitis; I10 Essential (primary) hypertension

== ENCOUNTER 2024-10-11 11:23 | Day surgery (SDC) | payer BC, SELFPAY ==
--- OUTSIDE RECORDS SUMMARY | 2024-10-04 14:12 | XMS_ITS ---
Author Organization [facility] Address [address] [place] [address] Care Team Providers Care Senior Medical Director Name Role Phone Po Carlos OCONNOR Primary Care Provider Ke Owen Unavailable [phone] Encounters Encounter Location Date Provider Diagnosis [facility] [address] [place] [phone] 04/03/2024 Ke Knowles PLAN OF TREATMENT Next Appt Details Provider Name:Ke Knowles , 10/11/2024 09:30:00 AM, [address] [facility] , [place], [place], [phone],
--- OUTSIDE RECORDS SUMMARY | 2024-10-04 14:12 | XMS_ITS ---
Author Organization [facility] Address [address] [place] [address] Care Team Providers Care Personnel Generalist Manager Name Role Phone Carlos Cole MD Primary Care Provider Ke Owen Unavailable [phone] ALLERGIES No Known Allergies REASON FOR VISIT [...] (K21.9) Active confirmed Gastroesophagea l reflux disease (800515442) VITAL SIGNS BMI 31.56 kg/m2 06/12/2024 Blood pressure systolic 000 mm Hg 06/12/20 24 Blood pressure diastolic 00 mm Hg 024 Height 70 in 06/12/2024 Temperature 98.4 degrees Fahrenheit 06/12/20 24 Weight 220 lbs 06/12/2024 Encounters Encounter Location Date Provider Diagnosis [facility] [address] [place] [address] 06/12/2024 Ke Knowles Family history of colon [...] Provider Name:Ke Knowles , 10/11/2024 09:30:00 AM, [address] [place] [address] , [place], [place], [phone], Progress Notes * Examination Category Sub-Category Detail [...]
--- OUTSIDE RECORDS SUMMARY | 2024-10-04 14:13 | XMS_ITS | Patient Health Record ---
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 DETAILED ASSAY INFORMATION: Hereditary hemochromatosis (HH) is [...] variants in the HFE gene, C282Y (NM 337995.2: c.845G>A, p.Mqs340Mjh) and H63D (NM 186119.2: c.187C>G, p.Sti49Vpd), that are commonly associated with HH. These [...] Health care providers, please contact your local [employer] genetic counselor or call [phone] ( ) for assistance with the interpretation of these results. This test was developed and its analytical performance characteristics have been determined by [employer] [facility]. It has not been cleared or approved by FDA. This assay has been validated pursuant to the CLIA regulations and is used for clinical purposes. For more information, please refer to http://education.Optimata.com/faq/hemochromatosi s. (This link is being provided for informational/educational purposes only.) A portion of the [place] [facility] [place] Reviewed and signed by Laboratory results and submitted clinical information reviewed by Petrona Syed, Ph.D., HCLD, Signed on 03/23/2024 at 23:28 THIS TEST WAS PERFORMED AT: [facility] [address] [place] [address] FABIAN VELÁSQUEZ MD,PHD,BRIANNA Comprehensive Met. Panel Reviewed date:03/21/2024 08:35:24 PM Interpretation: Performing Lab:[facility], [address] [place] [phone] Notes/Report: Sodium 142 135-145 mmol/L Potassium 4.2 3.3-5.1 mmol/L Slight Hemoly sis Chloride 106 96-108 mmol/L Carbon Dioxide 27 22-29 mmol/L Anion Gap 13 12-20 Blood Urea Nitrogen 17 9-16 mg/dL Creatinine 0.85 0.5-1.4 mg/dL Estimated Glomerular Filt Rate > 60 NOTE: For -Armenian individuals, multiply the result by 1.210. Chronic [...] PROFILE Reviewed date:03/07/2024 07:41:40 PM Interpretation: Performing Lab:[facility], [address] [place] [phone] Notes/Report: Iron 183 45-160 mcg/dL Total Iron Binding Capacity 348 228-428 mcg/d L Percent Iron Saturation 53 15-50 % Unsaturated Iron Binding 165 Ferritin Reviewed date:03/07/2024 07:41:34 PM Interpretation: Performing Lab:[facility], [address] [place] [phone] Notes/Report: Ferritin 214 20-250 ng/mL Lipid Panel Reviewed date:03/08/2024 07:23:01 PM Interpretation: Performing Lab:[facility], [address] [place] [phone] Notes/Report: Triglycerides 79 <150 mg/dL Desirable Triglyceride: [...] Ceruloplasmin Reviewed date:03/15/2024 11:34:43 PM Interpretation: Performing Lab:[facility], [address] [place] [phone] Notes/Report: Ceruloplasmin 23 14-30 mg/dL THIS TEST WAS PERFORMED AT: [facility] [address] [place] [phone] ESPERANZA FORBES MD Alpha 1 Anti-trypsin Reviewed date:03/15/2024 11:34:52 PM Interpretation: Performing Lab:[facility], [address] [place] [phone] Notes/Report: Alpha 1 Anti-trypsin 134 83-199 mg/dL THIS TEST WAS PERFORMED AT: [facility] [address] [place] [phone] ESPERANZA FORBES MD Liver Fibrosis Pnl Reviewed date:03/15/2024 11:35:10 PM Interpretation: Performing Lab:[facility], [address] [place] [phone] Notes/Report: Liver Fibrosis Score 0.72 Liver Fibrosis [...] a>0.62 and a<=1.00 : A3 (severe activity) YJL-Gjbbp-6-Macroglobulin 348 106-279 mg/dL FIB-Haptoglobin 76 43-212 mg/dL FIB-Apolipoprotein A1 141 94-176 mg/dL FIB-Total Bilirubin 1.7 0.2-1.2 mg/dL FIB-GGT 28 3-95 U/L FIB-ALT 75 9-46 U/L Reference ID [id number] Footnote SEE NOTE The reliability of results is dependent on compliance with the preanalytical and analytical conditions recommended by [employer]. The tests have to be deferred for: [...] The performance characteristics have been determined by [facility]. It has not been cleared or approved by the U.S. Food and Drug Administration. Performance characteristics refer to the analytical performance of the test. [employer], the associated logo, [employer] [place] and all associated [facility] [employer]endon are the registered trademarks of [employer]. All third libertarian mcclendon - (R) and (TM) - are the property of their respective owners. (C) 9444-2398 [employer]. All rights reserved. THIS TEST WAS PERFORMED AT: [facility] [address] [place] [address] FABIAN VELÁSQUEZ MD,PHD,BRIANNA CARLOS Reflex Titer and Pattern Reviewed date:03/13/2024 11:20:27 PM Interpretation: Performing Lab:[address] [phone] Notes/Report: Anti Nuclear Antibody Screen NEGATIVE NEGATIVE [...] Negative International Consensus on CARLOS Patterns (https://doi.org/10.1515/ccl m-8959-2550) For additional information, please refer to http://education.Artoo.Context Relevant/faq/PAN179 (This link is being provided for informational/ educational purposes only.) THIS TEST WAS PERFORMED AT: [facility] [address] [place] [phone] ESPERANZA FORBES MD Anti Nuclear Antibody Titer TNP Anti Nuclear Antibody Pattern TNP CARLOS Titer 2 TNP CARLOS Pattern 2 TNP CARLOS Titer 3 TNP CARLOS Pattern 3 TNP Mitochondrial Antibody Reviewed date:03/15/2024 11:34:26 PM Interpretation: Performing Lab:[address] [address] Notes/Report: Mitochondrial Antibodies NEGATIVE NEGATIVE THIS TEST WAS PERFORMED AT: [facility] [address] [place] [phone] ESPERANZA FORBES MD Mitochondrial Ab Titer TNP Smooth Muscle Antibody Reviewed date:03/15/2024 11:34:34 PM Interpretation: Performing Lab:[facility], [address] [place] [phone] Notes/Report: Smooth Muscle Antibody <20 <20 U [...] type 1. THIS TEST WAS PERFORMED AT: [facility]/[address] [address] CARROL MCMILLAN MD,PHD Hepatitis A,B,C Profile Reviewed date:03/09/2024 02:51:02 PM Interpretation: Performing Lab:[address] [address] Notes/Report: Hepatitis A Antibody IgM Nonreactive Nonreactive [...] A1c Reviewed date:03/07/2024 07:41:13 PM Interpretation: Performing Lab:[facility], [address] [place] [phone] Notes/Report: Hemoglobin A1c % 5.1 <6.0 % [...] average glucose, using the formula of the [id number]-Tnjpldk Average Glucose study (ADAG), Diabetes Care, Vol.31,#8, Mar. 2007 Liver Panel (Not yet reviewe d by provider) Interpretation: Performing Lab:[facility], [address] [place] [phone] Notes/Report: Bilirubin Total 1.6 0.0-1.0 mg/dL Bilirubin Direct 0.5 0.0-0.5 mg/dL Aspartate Amino Transferase 58 5-37 U/L Alanine Aminotransferase 128 0-40 U/L Total Protein 8.0 6.5-8.0 g/dL Albumin Level 4.8 3.5-5.0 g/dL Alkaline Phosphatase 77 39-117 U/L REASON FOR REFERRAL Referring Provider First Name Carlos Referring Provider Last Name Po Referring Provider Speciality Internal M edicine Referred Organization [facility] Referred Provider Ke Knowles Referred Address [address] [place] [address],[place], [place],[address],[place] Referred Provider Specialty Gastroentero logy General Notes Nancy Baron 024 11:27:36 AM EDT > requested [place] [facility] [place] for visit with Dr Knowles on 01-31-[address]. [address] Cole's office at [phone] Referral Priority Routine Referring Provider First Name Carlos Referring Provider Last Name Po Referring Provider Speciality Internal M edicine Referred Organization [facility] Referred Provider Ke Knowles Referred Address [address] [place] [address],[place], [place],[address],[place] Referred Provider Specialty Gastroentero logy General Notes Nancy Baron 2024 10:22:28 AM >requested [place] [facility] [place] for visit with Dr. Knowles on [phone] Dr cole Referral Priority Routine MEDICATIONS Medication [...] Problem Diarrhea, unspecified type (R19.7) Active confirmed 57244477 Problem Non-intractable vomiting without nausea, unspecified vomiting type (R11.11) Active confirmed 496894457 Problem Family history of colon cancer (Z80.0) Active confirmed 571612252 Problem Encounter for screening for malignant neoplasm of colon (Z12.11) Active confirmed 900681661 Problem Abnormal CT scan, stomach (R93.3) Active confirmed 004955761 Problem Abnormal upper gastrointestinal barium series (R93.3) Active confirmed 631324230 Problem Nausea with vomiting, unspecified (R11.2) Active confirmed Nausea a nd vomiting (35534001) Problem Diarrhea (R19.7) Active confirmed Diarr hea (55516380) Problem Fatty liver (K76.0) Active confirmed Fa tty liver (331278566) Problem Iron excess (E83.19) Active confirmed Iron excess (51234903) Problem Elevated liver function tests (R94.5) Active confirmed Elevated liver enzymes level (410849516) Problem Splenomegaly (R16.1) Active confirmed Splenomegaly (02694813) Problem Family history of colon cancer in mother (Z80.0) Active confirmed Family histor y of malignant neoplasm of gastrointestinal tract (308459104) Problem Abdominal pain, LUQ (R10.12) Active confirmed Left upper quadrant pain (541987124) Problem Odynophagia (R13.10) Active confirmed Odynophagia (45394068) Problem Chronic GERD (K21.9) Active confirmed Gastroesophagea l reflux disease (409793326) VITAL SIGNS Temperature 98.4 degrees Fahrenheit 06/12/2024 Blood pressure diastolic 00 mm Hg 06/12/2024 Height 70 in 06/12/2024 Blood pressure systolic 000 mm Hg 06/12/2024 Weight 220 lbs 06/12/2024 BMI 31.56 kg/m2 06/12/2024 Encounters Encounter Location Date Provider Diagnosis [facility] [address] [place] [phone] 01/31/2024 Ke Knowles Fatty liver K76.0 ; Elevated liver function tests R94.5 ; Iron excess E83.19 ; Splenomegaly R16.1 ; Family history of colon cancer in mother Z80.0 and Abdominal pain, LUQ R10.12 [facility] [address] [place] [phone] 06/12/2024 Ke Knowles Family history of colon cancer Z80.0 ; Fatty liver K76.0 ; Encounter for screening for malignant neoplasm of colon Z12.11 and Chronic GERD K21.9 [facility] [address] [place] [phone] 01/31/2024 Ke Knowles [facility] [address] [place] [phone] 03/05/2024 Ke Knowles [facility] [address] [place] [phone] 03/18/2024 Ke Knowles [facility] [address] [place] [phone] 03/21/2024 Ke Knowles Odynophagia R13.10 [facility] [address] [place] [phone] 04/03/2024 Ke Knowles ASSESSMENTS Encounter Date Diagnosis [...] RFLX PCR 09/29/2020 Prothrombin Time INR 01/31/2024 Liver Panel 10/03/2024 Ferritin 01/31/2024 Lipid Panel 01/31/2024 Ceruloplasmin 01/31/2024 Alpha 1 Anti-trypsin 01/31/2024 Liver Fibrosis Pnl 01/31/2024 Mitochondrial Antibody 01/31/2024 Smooth Muscle Antibody 01/31/2024 Hepatitis A,B,C Profile 01/31/2024 US abdomen comp w elastography Hemoglobin A1c 01/31/2024 Future Test Test Name Order Date UPPER GI ENDOSCOPY 02/06/2020 COLONOSCOPY 02/06/2020 COLONOSCOPY 06/12/2024 Next Appt Details Provider Name:Ke Knowles , 10/11/2024 09:30:00 AM, [address] [place] [address] , [place], [phone], Insurance Providers Payer Name Payer Address Payer Phone Subscriber Number Group Number Insured Name Patient Relationship to Insured Coverage Start Date Coverage End Date [facility] [employer] [address] [place] [address] [phone] [id number]OOKE Self - patient is the insured MEDICAL (GENERAL) HISTORY Medical History History ICD Code Denies NM,DM,CVA,Lung disease,renal dise ase HTN Discrete episodes of [...]
--- OUTSIDE RECORDS SUMMARY | 2024-10-04 14:13 | XMS_ITS ---
Author Organization [facility] Address [address] [place] [address] Care Team Providers Care Drop Man Name Role Phone Po Carlos OCONNOR Primary Care Provider Ke Owen [phone] MEDICATIONS Medication SIG (Take, Route, Fr equency, Duration) Notes Start Date End Date Status Omeprazole 40 MG 1 Orally Once a day every morning for 30 day(s) 03/21/2024 Active PROBLEMS Problem Type ICD Code Onset Dates Problem Status W/U Status Risk SNOMED Code Notes Problem Odynophagia (R13.10) Active confirmed Odynophagia (38941696) Encounters Encounter Location Date Provider Diagnosis [facility] [address] [address] 03/21/2024 Ke Knowles Odynophagia R13.10 ASSESSMENTS Encounter [...] Provider Name:Ke Knowles , 10/11/2024 09:30:00 AM, [address] [place] [address] , [place], [place], [phone],
[2024-10-09 13:49] VITALS: BMI 31.6
--- NOTE | 2024-10-10 09:22 | HO.ANESPROP2 ---
Documented by User: Cordelia Rangel NP 10/10/24 09:23 HPI - Anesthesia Eval Consult details Narrative: 44yo M for Colonoscopy PMFSH Active Problems Active Problems: All Active Problems Lateral epicondylitis, right elbow (Acute) Arm pain, right (Acute) Myalgia (Acute) Peripheral vascular disease (Acute) Tinea corporis (Acute) Hypersomnia (Acute) NAFLD (nonalcoholic fatty liver disease) (Acute) Annual physical exam (Acute) Splenomegaly (Acute) Elevated ferritin (Acute) Family history of colon cancer (Acute) Left upper quadrant abdominal pain (Acute) Fatty liver (Acute) Low vitamin D level (Acute) Generalized anxiety disorder (Acute) Heart murmur (Acute) Facial neuralgia (Acute) Peripheral neuropathy (Acute) Elevated LFTs (Acute) Benign essential hypertension (Acute) Irritable bowel disease (Acute) Tobacco abuse (Acute) GERD (gastroesophageal reflux disease) (Acute) Obesity (BMI 30-39.9) (Acute) Past Medical History Medical History (Updated 10/09/24 @ 13:49 by Graciela Ramos RN) NAFLD (nonalcoholic fatty liver disease) Murmur HTN (hypertension) PVD (peripheral vascular disease) Elevated LFTs Decreased hearing of right ear Right otitis media Benign essential hypertension Right hand pain Screening for hyperlipidemia History of intravenous drug abuse Irritable bowel disease Tobacco abuse GERD (gastroesophageal reflux disease) Obesity (BMI 30-39.9) Family History Family History Mother Cancer Colon cancer Scleroderma Father High blood pressure Other Substance abuse Family history of problems with anesthesia: No Surgical History Surgical History History of esophagogastroduodenoscopy (EGD) History of colonoscopy History of Problems with Anesthesia: No Social History Social History (Updated 10/09/24 @ 13:50 by Graciela Ramos RN) Household Members: Spouse Housing: House Are you a primary reservoir caretaker to a significant other at home: No Do you presently have visiting nurse or other home services: No Alcohol intake: current Alcohol intake frequency: a few times a month Comment: once a month 6 pack Patient Tobacco Use Status: Current everyday Tobacco user Tobacco use type: Cigarette Cigarette Packs Per Day: 1 Cigarettes Per Day: 15 Years Smoked: 25 Smoked in Last 30 Days: Yes e-Cigarette/Vaping Use: Never Used Second Hand Smoke Exposure: Yes Use of substances other than those prescribed or required for medical reasons: Yes Substance Use Frequency: Occasionally Have you been hit, kicked, punched, or otherwise hurt by someone within the past year? If so, by whom?: No Are you DNR?: No Advance Directives: No Advance Directives Information Provided: No Advance Directives on File: No Recently lost weight without trying: No How much weight loss: Not applicable Eating poorly because of decreased appetite: No Nutrition screen score: 0 Nutrition Risks: No Nutritional Risk Poor oral hygiene: Yes (Missing teeth throughout, Cracked tooth x1 bottom back.) service: No Current occupational status: employed Current occupational exposures/hazards: No Cognitive needs: No Hearing needs: No Vision needs: Yes (glasses) Meds Allergies Allergy/AdvReac Type Severity Reaction Status Date / Time No Known Allergies Allergy Verified 10/11/24 12:00 Home Medications ?Medication ?Instructions ?Recorded ?Confirmed ?Last Taken ?Type omeprazole 40 mg capsule,delayed 40 mg PO QAM 10/09/24 10/11/24 Unknown History release Exam Height,Weight and Vital Signs: Height 5 ft 10 in Weight 99.79 kg Pertinent Lab Results Pertinent Lab Results: Laboratory Tests 10/03/24 16:47 WBC 6.8 Hgb 15.6 Hct 43.5 Plt Count 219 Sodium 140 Potassium 3.6 Chloride 108 Carbon Dioxide 23 BUN 21 H Creatinine 0.71 Narrative Narrative: ECHO 2021 Conclusions: - The left ventricular systolic function is normal. The calculated ejection fraction is 67% by biplane method. - No obvious valvular pathology seen on this study. Assessment and Plan Assessment Anesthesia Assessment: Chart Reviewed Final Anesthetic Review Family History of Problems with Anesthesia: No History of Problems with Anesthesia: No Documented by User: Chapo Lewis MD 10/11/24 13:12 [facility] Past Medical History Medical History (Updated 10/09/24 @ 13:49 by Graciela Ramos RN) NAFLD (nonalcoholic fatty liver disease) Murmur HTN (hypertension) PVD (peripheral vascular disease) Elevated LFTs Decreased hearing of right ear Right otitis media Benign essential hypertension Right hand pain Screening for hyperlipidemia History of intravenous drug abuse Irritable bowel disease Tobacco abuse GERD (gastroesophageal reflux disease) Obesity (BMI 30-39.9) Family History Family History Mother Cancer Colon cancer Scleroderma Father High blood pressure Other Substance abuse Surgical History Surgical History History of esophagogastroduodenoscopy (EGD) History of colonoscopy Social History Social History (Updated 10/09/24 @ 13:50 by Graciela Ramos RN) Household Members: Spouse Housing: House Are you a primary reservoir caretaker to a significant other at home: No Do you presently have visiting nurse or other home services: No Alcohol intake: current Alcohol intake frequency: a few times a month Comment: once a month 6 pack Patient Tobacco Use Status: Current everyday Tobacco user Tobacco use type: Cigarette Cigarette Packs Per Day: 1 Cigarettes Per Day: 15 Years Smoked: 25 Smoked in Last 30 Days: Yes e-Cigarette/Vaping Use: Never Used Second Hand Smoke Exposure: Yes Use of substances other than those prescribed or required for medical reasons: Yes Substance Use Frequency: Occasionally Have you been hit, kicked, punched, or otherwise hurt by someone within the past year? If so, by whom?: No Are you DNR?: No Advance Directives: No Advance Directives Information Provided: No Advance Directives on File: No Recently lost weight without trying: No How much weight loss: Not applicable Eating poorly because of decreased appetite: No Nutrition screen score: 0 Nutrition Risks: No Nutritional Risk Poor oral hygiene: Yes (Missing teeth throughout, Cracked tooth x1 bottom back.) service: No Current occupational status: employed Current occupational exposures/hazards: No Cognitive needs: No Hearing needs: No Vision needs: Yes (glasses) Meds Allergies Allergy/AdvReac Type Severity Reaction Status Date / Time No Known Allergies Allergy Verified 10/11/24 12:00 Home Medications ?Medication ?Instructions ?Recorded ?Confirmed ?Last Taken ?Type omeprazole 40 mg capsule,delayed 40 mg PO QAM 10/09/24 10/11/24 Unknown History release Exam Airway Mallampati Class: II TM Dist: <=3cm Neck ROM: Full Loose/Missing/Broken Teeth: Yes, Upper and Lower Heart: ok Lungs: ok Assessment and Plan Assessment Anesthesia Assessment: Anesthesia Plan Discussed Final Anesthetic Review NPO: Yes ASA Class: III Final Preanesthetic Review: No Changes in Pt Med Stat, Meds/Allgs Chart Reviewed, Consent Obtained/Reviewed and Anes Risks/Benef Reviewed Patient Risk: Intermediate Procedure Risk: Low Anesthetic Plan Anesthetic Plan: MAC: and Agree w/ Assess. and Plan Disposition: Standard PACU
[2024-10-11 12:02] VITALS: BP 136/90; PULSE 62; RESP 16; TEMP 36.9; O2SAT 99; BMI 31.4
[2024-10-11 12:33] LABS: Amphetamine Screen Urine Not Detected (Not Detect); Barbiturates, Urine Not Detected (Not Detect); Benzodiazepines Screen Urine Not Detected (Not Detect); Buprenorphine Scr Not Detected (Not Detect); Cannabinoid Screen Urine POSITIVE (Not Detect); Cocaine Screen Urine Not Detected (Not Detect); Fentanyl, urine Not Detected (Not Detect); Methadone Screen, Urine Not Detected (Not Detect); Opiate Screen Urine Not Detected (Not Detect); Oxycodone Screen Urine Not Detected (Not Detect); Phencyclidine Screen Urine Not Detected (Not Detect)
[2024-10-11] MEDS: Lactated Ringers 1,000 ML 100 ML IVCONT (12:48)
[2024-10-11 13:50] VITALS: BP 104/64; PULSE 57; RESP 16; TEMP 36.4; O2SAT 98
--- NOTE | 2024-10-11 13:54 | PM.OP ---
Brief Operative Note Date of Service: 10/11/24 Pre-op diagnosis: Screening Post-op diagnosis: other (Polyp) Procedure: Colonoscopy to the cecum and TI with cold snare polypectomy x 1 Surgeon: Ke Knowles MD Anesthesia: MAC Was an Senior Linux Unix Administrator used for this Procedure?: No Estimated blood loss (mL): 2.0 Pathology: other (A. Polyp at 20cm) Condition: stable Disposition: PACU
[2024-10-11 14:05] VITALS: BP 110/77; PULSE 53; RESP 16; TEMP 36.4; O2SAT 99
--- NOTE | 2024-10-12 00:09 | OP_ITS ---
DATE OF SERVICE: 10/11/2024 SURGEON: Ke Knowles MD INDICATIONS: The patient presents for evaluation of colorectal cancer screening in regard to family history of colon cancer. Full consent has been obtained from him for this, including risks of bleeding and perforation. PREOPERATIVE DIAGNOSIS: POSTOPERATIVE DIAGNOSIS: PROCEDURE PERFORMED: Colonoscopy to the cecum and terminal ileum with cold snare polypectomy. ESTIMATED BLOOD LOSS: COMPLICATIONS: ANESTHESIA: Medication used, monitored anesthesia care. ASSISTANTS: SPECIMENS: PREOPERATIVE DIAGNOSES: colorectal cancer screening and family history of colon cancer. POSTOPERATIVE DIAGNOSES: colorectal cancer screening and family history of colon cancer, small colon polyp, internal hemorrhoids. DESCRIPTION OF PROCEDURE: The patient was placed in the left lateral decubitus position. The digital rectal exam revealed no abnormalities. The Olympus video pediatric colonoscope was entered into the rectum and advanced easily to the cecum. Once in the cecum, I did identify normal-appearing cecal pouch with appendiceal orifice and a normal-appearing ileocecal valve. The terminal ileum was cannulated and appeared normal. Scope was withdrawn back in the colon. The entire cecum and ileocecal valve appeared normal. The scope was slowly withdrawn assessing all mucosal surfaces carefully. Preparation was excellent. At 20 cm, was a flat, but raised approximately 5 or 6 mm polyp, which was removed by cold snare polypectomy and recovered by suction. The polypectomy site appeared clean, without any sign of residual polyp nor significant bleeding. I did not visualize any other polyps, colitis, nor angiodysplasia. In the rectum, scope was retroflexed visualizing some small internal hemorrhoids, but no other pathology. The rectal mucosa appeared normal. The scope was straightened and withdrawn from the patient. He tolerated the procedure well and was returned to the recovery area in stable condition. IMPRESSION: 1. Colon polyp. 2. Internal hemorrhoids. PLAN: The results of the pathology will be checked. Even if this is not a tubular adenoma, I would recommend a followup coloscopy in 5 years given the family history of his mother having had colon cancer in her early 60s. He was advised not to use any aspirin or NSAIDs for 1 week. His most recent liver profile from earlier this month reveals a total bilirubin of 1.6, direct bilirubin of 0.5, AST 58, ALT 120, and a normal alkaline phosphatase. He will be seen in followup later in the year to review that. We did discuss his history of fatty liver in the past and his need to watch his diet, lose weight, and avoid alcohol completely. We did review that he may need a trial of some medications such as Ursodiol. We have also reviewed that he may need an eventual liver biopsy to rule out any more significant liver disease than just fatty liver. He will be seen in the Fall for a followup visit but was advised to call sooner as needed prior to that. This has been discussed with his . MD CAPRI Montilla/OLIVE / [id number] MTDD
== END 2024-10-11 14:53 | disposition home or self-care (01) ==
PROVIDERS: Nurse Practitioner; PCP Internal Medicine; Visit Provider Internal Medicine
PROC: 0DJD8ZZ Inspection of Lower Intestinal Tract, Via Natural or Artificial Opening Endoscopic (ICD-10-PCS; CPT 45378; principal; 2024-10-11 12:40)
DX: Z12.11 Encounter for screening for malignant neoplasm of colon (principal); K63.5 Polyp of colon; K64.8 Other hemorrhoids; Z80.0 Family history of malignant neoplasm of digestive organs; I10 Essential (primary) hypertension; K76.0 Fatty (change of) liver, not elsewhere classified; F17.210 Nicotine dependence, cigarettes, uncomplicated
CPT/HCPCS: 45385; 80307; 88305; J2003; J2405; J2704

== ENCOUNTER 2024-10-31 07:59 | Outpatient (AMB) | payer BC, SELFPAY ==
--- OUTSIDE RECORDS SUMMARY | 2024-10-31 08:03 | XMS_ITS ---
Author Organization [facility] Address [address] [facility] [address] [place] [id number] Care Team Providers Care Lunchroom Mother Name Role Phone Carlos Cole MD Primary Care Provider Ke Owen [phone] REASON FOR VISIT screening Encounters Encounter Location Date Provider Diagnosis [facility] Out[facility] [address] [place], [place] [id number] 10/11/2024 Ke Knowles Plan Of Treatment Next Appt Details Provider Name:Ke Knowles , 05/14/2025 04:00:00 PM, [address] [facility], [address] [facility], [place], [address], Progress Notes * ROB BROOKE MDOB:1980 (44 yo M)Acc No.[id number]:10/11/2024 COLON WITH MAC Patient:?MEDNYROB Provider:?Ke Knowles MD :1980???Age:44 Y???Sex:Male Jrogito e:10/11/2024 Address:[address] [place], [place] [id number] Pcp:Carlos Cole MD Subjective: * Chief Complaints: * ???1. Screening. * Medical History:? Objective: * Vitals:? Assessment: Plan: * Treatment: * * The named appointment provid er may or may not be the originator of this progress note, and it is not deemed complete until electronically signed by the appointment provider. Sign off status: Pending * Provider:?Ke Knowles MD Date:? 025 Generated for Diana dupont/Tiera/eTransmitting on:?10/31/2024 08:03 AM EDT
--- OUTSIDE RECORDS SUMMARY | 2024-10-31 08:03 | XMS_ITS ---
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 Role Phone Carlos Cole MD Primary Care Provider Ke Owen Unavailable [phone] Allergies No Known Allergies REASON FOR VISIT Patient presents today for fatty liver Medications Medication SIG (Take, Route, Frequency, Duration) Notes Start Date End Date Status amLODIPine Besylate 5 MG TAKE 1 TABLET BY MOUTH DAILY Oral for 90 I10,Unavailable Active Lisinopril 10 MG 1 tablet Orally Once a day for 30 day(s) Active Omeprazole 40 MG 1 Orally Once a day every morning for 30 day(s) 03/21/2024 Active Social History Tobacco Use: Social History Observation Description Date Details (start date - stop date) Current Smoker NA - NA Tobacco Use/Smoking Question Answer Notes Patient is [...] monthly (1 point) Points 3 Interpretation Negative Section Notes: Smoker; occasional alcohol 1 -2 times per month Problems Problem Type SNOMED Code ICD Code Onset Dates Problem Status W/U Status Risk Notes Problem Gastroesophageal reflux disease (745513794) Chronic GERD (K21.9) Active confirmed Vital Signs Temperature 98.4 degrees Fahrenheit 06/12/20 24 Blood pressure systolic 000 mm Hg 06/12/20 24 Blood pressure diastolic 00 mm Hg 024 Height 70 in 06/12/2024 Weight 220 lbs 06/12/2024 BMI 31.56 kg/m2 06/12/2024 Encounters Encounter Location Date Provider Diagnosis [facility] [address] [place] [address] 06/12/2024 Ke Knowles Family history of colon cancer Z80.0 ; Fatty liver K76.0 ; Encounter for screening for malignant neoplasm of colon Z12.11 and Chronic GERD K21.9 Assessments Encounter Date Diagnosis (ICD Code) Assessment Notes Treatment Notes Treatment Clinical Notes Section Notes 06/12/2024 Family history of colon cancer (ICD-10 - Z80.0) Overall, Rob appears well from a clinical standpoint. We did have a lengthy discussion today and reviewed that while he does have different GI issues and different somatic complaints, he is otherwise healthy but his lifestyle of smoking, excessive coffee drinking, dietary indiscretions, and some weight gain certainly contributing to a lot of his ongoing GI complaints and probably his overall somatic complaints. As such, I advised him that he certainly needs to minimize coffee consumption, eliminate tobacco, eat healthy, and try to lose weight. In regard to the elevated LFTs and fatty liver we did review that he obviously needs to eat a healthy diet and lose weight. We did review that fatty liver can definitely cause some chronic liver disease and eventually cirrhosis with its associated early morbidity and mortality. We did review that his previous history of binge drinking contributed to his fatty liver and he should certainly try to avoid alcohol completely at this point. I am going to repeat a liver profile today. We did review that if the liver enzymes continue to remain over 2-3 times normal then we may want him to undergo eventual liver biopsy to assess for the degree of inflammation and scarring. He might require medical therapy with something such as ursodiol. I advised him that I do not think he has any component of hemochromatosis that would be contributing to his liver disease. However, I did give him a copy of his genetic testing for hemochromatosis such that he show it to his and his son's die turner. We reviewed that gene is fairly common and if his also has that gene then that would theoretically put his son at risk of inheriting both genes and then developing iron overload from hemochromatosis later in life. In regard to his symptoms of reflux and other symptoms such as sternal discomfort that he attributes to his esophagus, I did reassure him and reminded him of his normal endoscopies and barium swallow. I did advise him to continue his omeprazole but advised him that he can decrease the omeprazole to the [id number]-[id number]-suxflko 20 mg dose as long as it controls his heartburn. We again reviewed that obviously eating healthy, eliminating caffeine, and eliminating smoking would help this condition improve as well. I don't think he needs any further endoscopies. I did recommend a followup colonoscopy for 2024 given his last exam being in 2019 and the significant family history of his mother having had colon cancer in her 60s. We did review the rationale for the colonoscopy in regard to colorectal cancer prevention. Full consent was obtained for this, including risks of bleeding and perforation. The procedure will be done with monitored anesthesia care. Rob was comfortable with this plan. Thank you again for allowing me to participate in Rob's care. I shall continue to keep you advised of his progress. 06/12/2024 Fatty liver (ICD-10 - K76.0) Try to lose some weight and eat healthy to help the fatty liver. Avoid alcohol as well. Overall, Rob appears well from a clinical standpoint. We did have a lengthy discussion today and reviewed that while he does have different GI issues and different somatic complaints, he is otherwise healthy but his lifestyle of smoking, excessive coffee drinking, dietary indiscretions, and some weight gain certainly contributing to a lot of his ongoing GI complaints and probably his overall somatic complaints. As such, I advised him that he certainly needs to minimize coffee consumption, eliminate tobacco, eat healthy, and try to lose weight. In regard to the elevated LFTs and fatty liver we did review that he obviously needs to eat a healthy diet and lose weight. We did review that fatty liver can definitely cause some chronic liver disease and eventually cirrhosis with its associated early morbidity and mortality. We did review that his previous history of binge drinking contributed to his fatty liver and he should certainly try to avoid alcohol completely at this point. I am going to repeat a liver profile today. We did review that if the liver enzymes continue to remain over 2-3 times normal then we may want him to undergo eventual liver biopsy to assess for the degree of inflammation and scarring. He might require medical therapy with something such as ursodiol. I advised him that I do not think he has any component of hemochromatosis that would be contributing to his liver disease. However, I did give him a copy of his genetic testing for hemochromatosis such that he show it to his and his son's die turner. We reviewed that gene is fairly common and if his also has that gene then that would theoretically put his son at risk of inheriting both genes and then developing iron overload from hemochromatosis later in life. In regard to his symptoms of reflux and other symptoms such as sternal discomfort that he attributes to his esophagus, I did reassure him and reminded him of his normal endoscopies and barium swallow. I did advise him to continue his omeprazole but advised him that he can decrease the omeprazole to the town-ued-gzislok 20 mg dose as long as it controls his heartburn. We again reviewed that obviously eating healthy, eliminating caffeine, and eliminating smoking would help this condition improve as well. I don't think he needs any further endoscopies. I did recommend a followup colonoscopy for 2024 given his last exam being in 2019 and the significant family history of his mother having had colon cancer in her 60s. We did review the rationale for the colonoscopy in regard to colorectal cancer prevention. Full consent was obtained for this, including risks of bleeding and perforation. The procedure will be done with monitored anesthesia care. Rob was comfortable with this plan. Thank you again for allowing me to participate in Rob's care. I shall continue to keep you advised of his progress. 06/12/2024 Encounter for screening for malignant neoplasm of colon (ICD-10 - Z12.11) Overall, Rob appears well from a clinical standpoint. We did have a lengthy discussion today and reviewed that while he does have different GI issues and different somatic complaints, he is otherwise healthy but his lifestyle of smoking, excessive coffee drinking, dietary indiscretions, and some weight gain certainly contributing to a lot of his ongoing GI complaints and probably his overall somatic complaints. As such, I advised him that he certainly needs to minimize coffee consumption, eliminate tobacco, eat healthy, and try to lose weight. In regard to the elevated LFTs and fatty liver we did review that he obviously needs to eat a healthy diet and lose weight. We did review that fatty liver can definitely cause some chronic liver disease and eventually cirrhosis with its associated early morbidity and mortality. We did review that his previous history of binge drinking contributed to his fatty liver and he should certainly try to avoid alcohol completely at this point. I am going to repeat a liver profile today. We did review that if the liver enzymes continue to remain over 2-3 times normal then we may want him to undergo eventual liver biopsy to assess for the degree of inflammation and scarring. He might require medical therapy with something such as ursodiol. I advised him that I do not think he has any component of hemochromatosis that would be contributing to his liver disease. However, I did give him a copy of his genetic testing for hemochromatosis such that he show it to his and his son's die turner. We reviewed that gene is fairly common and if his also has that gene then that would theoretically put his son at risk of inheriting both genes and then developing iron overload from hemochromatosis later in life. In regard to his symptoms of reflux and other symptoms such as sternal discomfort that he attributes to his esophagus, I did reassure him and reminded him of his normal endoscopies and barium swallow. I did advise him to continue his omeprazole but advised him that he can decrease the omeprazole to the vpba-eni-goycncs 20 mg dose as long as it controls his heartburn. We again reviewed that obviously eating healthy, eliminating caffeine, and eliminating smoking would help this condition improve as well. I don't think he needs any further endoscopies. I did recommend a followup colonoscopy for 2024 given his last exam being in 2019 and the significant family history of his mother having had colon cancer in her 60s. We did review the rationale for the colonoscopy in regard to colorectal cancer prevention. Full consent was obtained for this, including risks of bleeding and perforation. The procedure will be done with monitored anesthesia care. Rob was comfortable with this plan. Thank you again for allowing me to participate in Rob's care. I shall continue to keep you advised of his progress. 06/12/2024 Chronic GERD (ICD-10 - K21.9) Minimize coffee and stop smoking to help the reflux. Use the Omeprazole as needed or daily, the 20 or 40mg. Overall, Rob appears well from a clinical standpoint. We did have a lengthy discussion today and reviewed that while he does have different GI issues and different somatic complaints, he is otherwise healthy but his lifestyle of smoking, excessive coffee drinking, dietary indiscretions, and some weight gain certainly contributing to a lot of his ongoing GI complaints and probably his overall somatic complaints. As such, I advised him that he certainly needs to minimize coffee consumption, eliminate tobacco, eat healthy, and try to lose weight. In regard to the elevated LFTs and fatty liver we did review that he obviously needs to eat a healthy diet and lose weight. We did review that fatty liver can definitely cause some chronic liver disease and eventually cirrhosis with its associated early morbidity and mortality. We did review that his previous history of binge drinking contributed to his fatty liver and he should certainly try to avoid alcohol completely at this point. I am going to repeat a liver profile today. We did review that if the liver enzymes continue to remain over 2-3 times normal then we may want him to undergo eventual liver biopsy to assess for the degree of inflammation and scarring. He might require medical therapy with something such as ursodiol. I advised him that I do not think he has any component of hemochromatosis that would be contributing to his liver disease. However, I did give him a copy of his genetic testing for hemochromatosis such that he show it to his and his son's die turner. We reviewed that gene is fairly common and if his also has that gene then that would theoretically put his son at risk of inheriting both genes and then developing iron overload from hemochromatosis later in life. In regard to his symptoms of reflux and other symptoms such as sternal discomfort that he attributes to his esophagus, I did reassure him and reminded him of his normal endoscopies and barium swallow. I did advise him to continue his omeprazole but advised him that he can decrease the omeprazole to the cynr-bai-iyogven 20 mg dose as long as it controls his heartburn. We again reviewed that obviously eating healthy, eliminating caffeine, and eliminating smoking would help this condition improve as well. I don't think he needs any further endoscopies. I did recommend a followup colonoscopy for 2024 given his last exam being in 2019 and the significant family history of his mother having had colon cancer in her 60s. We did review the rationale for the colonoscopy in regard to colorectal cancer prevention. Full consent was obtained for this, including risks of bleeding and perforation. The procedure will be done with monitored anesthesia care. Rob was comfortable with this plan. Thank you again for allowing me to participate in Rob's care. I shall continue to keep you advised of his progress. Plan Of Treatment Treatment Notes Assessment Notes Fatty liver Try [...] Up: prn, Reason: Provider Name:Ke Knowles , 05/14/2025 04:00:00 PM, [address] [place] [address], [address], [place], [address], Progress Notes * ROB BROOKE MDOB:1980 (43 yo M)Acc No.[id number]:06/12/2024 Progress Notes Patient:?ROB BROOKE Provider:?Ke Knowles MD :1980???Age:43 Y???Sex:Male Jorgito e:06/12/2024 Address:[address] [place], [place] [id number] Pcp:Carlos Cole MD Subjective: * Chief Complaints: * ???Patient presents today fo r fatty liver * HPI: ???incontinence:? I saw Rob in followup today in regard to his underlying history of fatty liver and associated elevated LFTs, some elevation of his iron studies, gastroesophageal reflux, left upper quadrant discomfort, family history of colorectal cancer and need for colorectal cancer screening. ?Since I last saw Rob in January he describes that he does continue to have different GI complaints, as well as some other somatic issues. He continues to have intermittent episodes of his left upper quadrant discomfort that he has had for quite some time now. He has had a negative extensive workup including 2 upper endoscopies and imaging studies,including an ultrasound and a MRI of the abdomen. The imaging studies have been negative other than slight splenomegaly for which he has seen [facility]. M[facility]. She did not think he had any type of hematologic process accounting for his symptoms. He describes that the episodes of discomfort are quite intermittent and do not interfere with any of his usual activities, eating, or sleeping. When he is busy he really does not notice the discomfort but feels it primarily when he is doing things such as driving and sitting in the same position for a while. ?He does continue to have episodes of what he describes as some belching and discomfort in the sternal area that he attributes to his esophagus. In addition to his negative endoscopies I did have him undergo a barium swallow in April that was also unremarkable with a description of normal esophageal motility and no sign of any significant reflux or esophageal obstruction. He does remain on his 40 mg of omeprazole which is giving him good relief of his reflux. He denies any anorexia, dysphagia, early satiety, nausea, or vomiting. Of note, he describes that he drinks a lot of coffee during the day and smokes about a pack a day. He is also not careful with his diet and does tend to eat a lot in the evening. He has also gained some weight. ?He described that his bowel movements have been fairly regular and without any signs of bleeding. He did have a screening colonoscopy in 2019 which was negative other than some non-adenomatous polyps. He is aware of the need for another colonoscopy in 2024 due to his family history of his mother having had colon cancer. ?In regard to his elevated LFTs and fatty liver we did review his workup earlier this summer that was negative for any other etiologies of liver disease including negative autoimmune studies and negative hepatitis B and C studies. His labs in February revealed an AST of 48, an ALT of 88, a total bilirubin of 1.9 which was not fractionated, and with a normal albumin and alkaline phosphatase. His hemoglobin A1c was normal and total cholesterol was only 156. His iron studies were relatively minimally elevated with an iron of 183 and iron saturation of 53%, but with a normal ferritin of 214. He does not have any known family history of liver disease. 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 In regard to the history of fatty liver, in addition to his risk factors of poor diet and elevated weight, he gives a history of some frequent binge drinking in his 20s and 30s, but now with only occasional social drinking about once a month. He had an abdominal ultrasound in February that described a fatty liver but without any evidence of splenomegaly or ascites. ?In reviewing things further with Rob he does describe a lot of aches and pains, as well as some fatigue. 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 However, he is worried about all of his symptoms and his family history of colon cancer in his mother and throat cancer in his father. Nonetheless, despite admitting to those concerns, he continues to smoke and does not maintain a healthy lifestyle in regard to his diet and weight. * ROS:?General/Constitutional:?Change in appetite?denies.?Chills?denies.?Fatigue?denies.?Ophthalmologic:?Comments?all negative.?ENT:?Comments?all negative.?Respiratory:?hemoptysis?denies.?Cough?denies.?Cardiovascular:?Chest pain?denies.?Orthopnea?denies.?Gastrointestinal:?Comments?See HPI for details.?Genitourinary:?Hematuria?denies.?Dysuria?denies.?Musculoskeletal:?Painful joints?denies.?Weakness?denies.?Skin:?Itching?denies.?Rash?denies.?Neurologic:?Headache?denies.?Seizures?denies.?Psychiatric:?Comments?all negative.? * Medical History:? * Surgical History:?No Surgica l History documented. * Hospitalization/Major Diagno stic Procedure:?No Hospitalization History. * Family History:?Father: dece ased.?Mother: , diagnosed with Colon cancer.? The patient's mother from colon cancer at the age of 63. She was diagnosed at age 59. No other known family history of colon cancer, IBD, nor celiac disease. No family history of liver cancer. * Social History:?Tobacco Use:?Tobacco Use/Smoking?Patient is a?current smoker,?When did you start smoking??16 years old ,?How often do you smoke cigarettes??every day,?How many cigarettes a day do you smoke??11-20,?How soon after you wake up do you smoke your first cigarette??6-30 minutes,?Are you interested in quitting??Thinking about quitting.?Drugs/Alcohol:?Alcohol Screen?Did you have a drink containing alcohol in the past year??Yes,?How often did you have a drink containing alcohol in the past year??2 to 4 times a month (2 points),?How many drinks did you have on a typical day when you were drinking in the past year??1 or 2 drinks (0 point),?How often did you have 6 or more drinks on one occasion in the past year??Less than monthly (1 point),?Points?3,?Interpretation?Negative.?Miscellaneous:?Marital status: . 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 ???Smoker; occasional alcohol 1-2 times per month. * Medications:?TakingLisinopri l 10 MG Tablet 1 tablet Orally Once a dayamLODIPine Besylate 5 MG Tablet TAKE 1 TABLET BY MOUTH DAILY Oral , Notes: I10,UnavailableOmeprazole 40 MG Capsule Delayed Release 1 Orally Once a day every morningMedication List reviewed and reconciled with the patientTaking Lisinopril 10 MG Tablet 1 tablet Orally Once a dayTaking amLODIPine Besylate 5 MG Tablet TAKE 1 TABLET BY MOUTH DAILY Oral , Notes: I10,UnavailableTaking Omeprazole 40 MG Capsule Delayed Release 1 Orally Once a day every morningMedication List reviewed and reconciled with the patient * Allergies:?N.K.D.A.yes[Aller gies Verified] Objective: * Vitals:?Wt: 220 lbs, Ht: 70 in, BMI:31.56 Index, BP: 000/00 mm Hg, Temp: 98.4. * Examination: ???General Examination: ?GENERAL APPEARANCE:?pleasant, well nourished, well developed, in no acute distress.?EYES:?sclera non-icteric.?ORAL CAVITY:?mucosa moist.?NECK/THYROID:?no cervical lymphadenopathy, neck supple.?SKIN:?nonjaundiced, no spider angiomata.?HEART:?S1, S2 normal.?LUNGS:?clear to auscultation bilaterally.?ABDOMEN:?normal bowel sounds, no guarding or rigidity, no guarding or rigidity, no masses palpable, soft, nontender, nondistended.?EXTREMITIES:?no edema.?NEUROLOGIC:?alert and oriented.? Assessment: * Assessment: 1.?Fatty liver - K76.0 (Prim christa)?2.?Family history of colon cancer - Z80.0?3.?Encounter for screening for malignant neoplasm of colon - Z12.11?4.?Chronic GERD - K21.9? Overall, Rob appears well f rom a clinical standpoint. We did have a lengthy discussion today and reviewed that while he does have different GI issues and different somatic complaints, he is otherwise healthy but his lifestyle of smoking, excessive coffee drinking, dietary indiscretions, and some weight gain certainly contributing to a lot of his ongoing GI complaints and probably his overall somatic complaints. As such, I advised him that he certainly needs to minimize coffee consumption, eliminate tobacco, eat healthy, and try to lose weight. In regard to the elevated LFTs and fatty liver we did review that he obviously needs to eat a healthy diet and lose weight. We did review that fatty liver can definitely cause some chronic liver disease and eventually cirrhosis with its associated early morbidity and mortality. We did review that his previous history of binge drinking contributed to his fatty liver and he should certainly try to avoid alcohol completely at this point. I am going to repeat a liver profile today. We did review that if the liver enzymes continue to remain over 2-3 times normal then we may want him to undergo eventual liver biopsy to assess for the degree of inflammation and scarring. He might require medical therapy with something such as ursodiol. I advised him that I do not think he has any component of hemochromatosis that would be contributing to his liver disease. However, I did give him a copy of his genetic testing for hemochromatosis such that he show it to his and his son's die turner. We reviewed that gene is fairly common and if his also has that gene then that would theoretically put his son at risk of inheriting both genes and then developing iron overload from hemochromatosis later in life. In regard to his symptoms of reflux and other symptoms such as sternal discomfort that he attributes to his esophagus, I did reassure him and reminded him of his normal endoscopies and barium swallow. I did advise him to continue his omeprazole but advised him that he can decrease the omeprazole to the [id number]-aib-tvphokp 20 mg dose as long as it controls his heartburn. We again reviewed that obviously eating healthy, eliminating caffeine, and eliminating smoking would help this condition improve as well. I don't think he needs any further endoscopies. I did recommend a followup colonoscopy for 2024 given his last exam being in 2019 and the significant family history of his mother having had colon cancer in her 60s. We did review the rationale for the colonoscopy in regard to colorectal cancer prevention. Full consent was obtained for this, including risks of bleeding and perforation. The procedure will be done with monitored anesthesia care. Rob was comfortable with this plan. Thank you again for allowing me to participate in Rob's care. I shall continue to keep you advised of his progress. Plan: * Treatment: 2.?Family history of colon c ancer?Procedure: COLONOSCOPY (Ordered for 06/12/2024) 3.?Encounter for screening for malignant neoplasm of colon?Procedure: COLONOSCOPY (Ordered for 06/12/2024)* with MAC 4.?Chronic GERD? Notes: Minimize coffee and stop smoking to help the reflux. Use the Omeprazole as needed or daily, the 20 or 40mg.?? * Procedure Codes:?G9902 Pt sc rn tbco and id as [id number] BP SCR NOT PRFRM REC REASON NOS * Preventive Medicine:? ??Counseling:?Care goal follow-up plan:?Above Normal BMI Follow-up?Giving encouragement to exercise,?BMI management provided?Yes.? * Follow Up:?prn * * Sign off status: Completed true * Provider:?Ke Knowles MD Date:? 024 Generated for Aartiaby cresencio/Tiera/eTransmitting on:?10/31/2024 08:03 AM EDT History and Physical Notes * HPI (History of Present Illness) Category Sub-Category Detail Notes Category Not es incontinence I saw Rob in followup today in regard to his underlying history of fatty liver and associated elevated LFTs, some elevation of his iron studies, gastroesophageal reflux, left upper quadrant discomfort, family history of colorectal cancer and need for colorectal cancer screening. Since I last saw Rob in January he describes that he does continue to have different GI complaints, as well as some other somatic issues. He continues to have intermittent episodes of his left upper quadrant discomfort that he has had for quite some time now. He has had a negative extensive workup including 2 upper endoscopies and imaging studies,including an ultrasound and a MRI of the abdomen. The imaging studies have been negative other than slight splenomegaly for which he has seen [facility]. [facility]. She did not think he had any type of hematologic process accounting for his symptoms. He describes that the episodes of discomfort are quite intermittent and do not interfere with any of his usual activities, eating, or sleeping. When he is busy he really does not notice the discomfort but feels it primarily when he is doing things such as driving and sitting in the same position for a while. He does continue to have episodes of what he describes as some belching and discomfort in the sternal area that he attributes to his esophagus. In addition to his negative endoscopies I did have him undergo a barium swallow in April that was also unremarkable with a description of normal esophageal motility and no sign of any significant reflux or esophageal obstruction. He does remain on his 40 mg of omeprazole which is giving him good relief of his reflux. He denies any anorexia, dysphagia, early satiety, nausea, or vomiting. Of note, he describes that he drinks a lot of coffee during the day and smokes about a pack a day. He is also not careful with his diet and does tend to eat a lot in the evening. He has also gained some weight. He described that his bowel movements have been fairly regular and without any signs of bleeding. He did have a screening colonoscopy in 2019 which was negative other than some non-adenomatous polyps. He is aware of the need for another colonoscopy in 2024 due to his family history of his mother having had colon cancer. In regard to his elevated LFTs and fatty liver we did review his workup earlier this summer that was negative for any other etiologies of liver disease including negative autoimmune studies and negative hepatitis B and C studies. His labs in February revealed an AST of 48, an ALT of 88, a total bilirubin of 1.9 which was not fractionated, and with a normal albumin and alkaline phosphatase. His hemoglobin A1c was normal and total cholesterol was only 156. His iron studies were relatively minimally elevated with an iron of 183 and iron saturation of 53%, but with a normal ferritin of 214. He does not have any known family history of liver disease. 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 In regard to the history of fatty liver, in addition to his risk factors of poor diet and elevated weight, he gives a history of some frequent binge drinking in his 20s and 30s, but now with only occasional social drinking about once a month. He had an abdominal ultrasound in February that described a fatty liver but without any evidence of splenomegaly or ascites. In reviewing things further with Rob he does describe a lot of aches and pains, as well as some fatigue. He does have a physical job in [employer] and does not have a particularly healthy lifestyle in regard to his ongoing smoking, dietary indiscretions, and weight gain. However, he is worried about all of his symptoms and his family history of colon cancer in his mother and throat cancer in his father. Nonetheless, despite admitting to those concerns, he continues to smoke and does not maintain a healthy lifestyle in regard to his diet and weight. Examination Category Sub-Category Detail Notes Category Not es General Examination GENERAL APPEARANCE: pleasant , well [...]
--- OUTSIDE RECORDS SUMMARY | 2024-10-31 08:03 | XMS_ITS ---
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 Generated for Aartii cresencio/Tiera/eTransmitting on:?10/31/2024 08:03 AM EDT
--- OUTSIDE RECORDS SUMMARY | 2024-10-31 08:04 | XMS_ITS | Patient Health Record ---
Author Organization [facility] Address [address] [place] [address] Care Team Providers Care Ammonia Worker Name Role Phone Carlos Cole MD Primary Care Provider Ke Owen Unavailable [phone] Allergies No Known Allergies Results Component Value Reference Range Notes DNA Analysis Hemochromatosis Reviewed date:06/12/2024 04:47:19 PM Interpretation: Performing Lab:[facility], [address] [place] [phone] Notes/Report: DNA Analysis Hemochromatosis See Below RESULT: [...] clinical information reviewed by Petrona Syed, Ph.D., [facility]. DETAILED ASSAY INFORMATION: Hereditary hemochromatosis (HH) is [...] variants in the HFE gene, C282Y (NM 565756.2: c.845G>A, p.Jnk888Exm) and H63D (NM 144822.2: c.187C>G, p.Nab09Yvn), that are commonly associated with HH. These [...] Health care providers, please contact your local [facility] genetic counselor or call [phone] ( ) for assistance with the interpretation of these results. This test was developed and its analytical performance characteristics have been determined by [facility]. It has not been cleared or approved by FDA. This assay has been validated pursuant to the CLIA regulations and is used for clinical purposes. For more information, please refer to http://education.HomeZada.RADLIVE/faq/hemo chromatosis. (This link is being provided for informational/education al purposes only.) A portion of the testing was performed at [facility]. Reviewed and signed by Laboratory results and submitted clinical information reviewed by Petrona Syed, Ph.D., [facility], Signed on 03/23/2024 at 23:28 THIS TEST WAS PERFORMED AT: [facility] [address] [place] [address] FABIAN VELÁSQUEZ MD,PHD,BRIANNA Comprehensive Met. Panel Reviewed date:03/21/2024 08:35:24 PM Interpretation: Performing Lab:[facility], [address] [place] [phone] Notes/Report: Sodium 142 135-145 mmol/L Potassium 4.2 3.3-5.1 mmol/L Slight Hemoly sis Chloride 106 96-108 mmol/L Carbon Dioxide 27 22-29 mmol/L Anion Gap 13 12-20 Blood Urea Nitrogen 17 9-16 mg/dL Creatinine 0.85 0.5-1.4 mg/dL Estimated Glomerular Filt Rate > 60 NOTE: For -Montserratian individuals, multiply the result by 1.210. Chronic [...] PROFILE Reviewed date:03/07/2024 07:41:40 PM Interpretation: Performing Lab:[facility], [address] [place] [phone] Notes/Report: Iron 183 45-160 mcg/dL Total Iron Binding Capacity 348 228-428 mcg/dL Percent Iron Saturation 53 15-50 % Unsaturated Iron Binding 165 Ferritin Reviewed date:03/07/2024 07:41:34 PM Interpretation: Performing Lab:[facility], [address] [place] [phone] Notes/Report: Ferritin 214 20-250 ng/mL Lipid Panel Reviewed date:03/08/2024 07:23:01 PM Interpretation: Performing Lab:[facility], [address] [place] [phone] Notes/Report: Triglycerides 79 <150 mg/dL Desirable Triglyceride: [...] Ceruloplasmin Reviewed date:03/15/2024 11:34:43 PM Interpretation: Performing Lab:[facility], [address] [place] [phone] Notes/Report: Ceruloplasmin 23 14-30 mg/dL THIS TEST WAS PERFORMED AT: [facility] [address] [place] [phone] ESPERANZA FORBES MD Alpha 1 Anti-trypsin Reviewed date:03/15/2024 11:34:52 PM Interpretation: Performing Lab:[facility], [address] [place] [phone] Notes/Report: Alpha 1 Anti-trypsin 134 83-199 mg/dL THIS TEST WAS PERFORMED AT: [facility] [address] [place] [phone] ESPERANZA FORBES MD Liver Fibrosis Pnl Reviewed date:03/15/2024 11:35:10 PM Interpretation: Performing Lab:[facility], [address] [place] [phone] Notes/Report: Liver Fibrosis Score 0.72 Liver Fibrosis [...] a>0.62 and a<=1.00 : A3 (severe activity) YAL-Aoqmj-4-Macroglobulin 348 106-279 mg/dL FIB-Haptoglobin 76 43-212 mg/dL FIB-Apolipoprotein A1 141 94-176 mg/dL FIB-Total Bilirubin 1.7 0.2-1.2 mg/dL FIB-GGT 28 3-95 U/L FIB-ALT 75 9-46 U/L Reference ID [id number] Footnote SEE NOTE The reliability of results is dependent on compliance with the preanalytical and analytical conditions recommended by [employer]. The tests have to be deferred for: [...] The performance characteristics have been determined by [facility] [employer] [facility]. It has not been cleared or approved by the U.S. Food and Drug Administration. Performance characteristics refer to the analytical performance of the test. [employer], the associated logo, [employer] [place] and all associated [employer] are the registered trademarks of [employer]. All third republican mcclendon - (R) and (TM) - are the property of their respective owners. (C) 5718-6907 [employer]. All rights reserved. THIS TEST WAS PERFORMED AT: [facility] [address] [place] [address] FABIAN VELÁSQUEZ MD,PHD,BRIANNA CARLOS Reflex Titer and Pattern Reviewed date:03/13/2024 11:20:27 PM Interpretation: Performing Lab:[address] [address] Notes/Report: Anti Nuclear Antibody Screen NEGATIVE NEGATIVE [...] AC-0: Negative International Consensus on CARLOS Patterns (https://doi.org/10.151 5/llwi-4775-5041) For additional information, please refer to http://education.Qompium/faq/FAQ1 77 (This link is being provided for informational/ educational purposes only.) THIS TEST WAS PERFORMED AT: [facility] [address] [place] [phone] ESPERANZA FORBES MD Anti Nuclear Antibody Titer TNP Anti Nuclear Antibody Pattern TNP CARLOS Titer 2 TNP CARLOS Pattern 2 TNP CARLOS Titer 3 TNP CARLOS Pattern 3 TNP Mitochondrial Antibody Reviewed date:03/15/2024 11:34:26 PM Interpretation: Performing Lab:[address] [address] Notes/Report: Mitochondrial Antibodies NEGATIVE NEGATIVE THIS TEST WAS PERFORMED AT: [facility] [address] [place] [phone] ESPERANZA FORBES MD Mitochondrial Ab Titer TNP Smooth Muscle Antibody Reviewed date:03/15/2024 11:34:34 PM Interpretation: Performing Lab:[facility] [address] Notes/Report: Smooth Muscle Antibody <20 <20 U [...] type 1. THIS TEST WAS PERFORMED AT: [facility]/[address] [address] CARROL MCMILLAN MD,PHD Hepatitis A,B,C Profile Reviewed date:03/09/2024 02:51:02 PM Interpretation: Performing Lab:[address] [address] Notes/Report: Hepatitis A Antibody IgM Nonreactive Nonreactive [...] A1c Reviewed date:03/07/2024 07:41:13 PM Interpretation: Performing Lab:[facility], [address] [place] [phone] Notes/Report: Hemoglobin A1c % 5.1 <6.0 % [...] average glucose, using the formula of the P1P-Edcobmx Average Glucose study (ADAG), Diabetes Care, Vol.31,#8, 2007 Liver Panel Reviewed date:10/11/2024 05:27:38 PM Interpretation: Performing Lab:[facility], [address] [place] [phone] Notes/Report: Bilirubin Total 1.6 0.0-1.0 mg/dL Bilirubin Direct 0.5 0.0-0.5 mg/dL Aspartate Amino Transferase 58 5-37 U/L Alanine Aminotransferase 128 0-40 U/L Total Protein 8.0 6.5-8.0 g/dL Albumin Level 4.8 3.5-5.0 g/dL Alkaline Phosphatase 77 39-117 U/L Drug Screen Urine Reviewed date:10/11/2024 05:17:48 PM Interpretation: Performing Lab:[facility], [address] [place] [phone] Notes/Report: Opiate Screen Urine Not Detected Not Detect Opiate cut-off is 300 ng/mL. Positive results are unconfirmed and should not be used for non-medical purposes. Barbiturates, Urine Not Detected Not Detect Barbiturate cut-off is 200 ng/mL. Positive results are unconfirmed and should not be used for non-medical purposes. Phencyclidine Screen Urine Not Detected Not Detect Phencyclidine cut-off is 25 ng/mL. Positive results are unconfirmed and should not be used for non-medical purposes. Amphetamine Screen Urine Not Detected Not Detect Amphetamine cut-off is 1000 ng/mL. Positive results are unconfirmed and should not be used for non-medical purposes. Benzodiazepines Screen Urine Not Detected Not Detect Benzodiazepine cut-off is 200 ng/mL. Positive results are unconfirmed and should not be used for non-medical purposes. Cocaine Screen Urine Not Detected Not Detect Cocaine cut-off is 300 ng/mL. Positive results are unconfirmed and should not be used for non-medical purposes. Cannabinoid Screen Urine POSITIVE Not Detect Cannabinoid cut-off is 50 ng/mL. Positive results are unconfirmed and should not be used for non-medical purposes. Methadone Screen, Urine Not Detected Not Detect ng/mL Methadone cut-off is 300 ng/mL. Positive results are unconfirmed and should not be used for non-medical purposes. Fentanyl, urine Not Detected Not Detect Fentanyl cut-off is 1 ng/mL. Positive results are unconfirmed and should not be used for non-medical purposes. Oxycodone Screen Urine Not Detected Not Detect ng/mL Oxycodone cut-off is 100 ng/mL. Positive results are unconfirmed and should not be used for non-medical purposes. Buprenorphine Scr Not Detected Not Detect ng/mL Buprenorphine cut-off is 5 ng/mL. Positive results are unconfirmed and should not be used for non-medical purposes. Pathology (Not yet reviewed by provider) Interpretation: Performing Lab:[facility], [address] [place] [phone] Notes/Report: Name: Rob Carreon Age/Sex: 44/M : 1980 Unit#: [id number] Attend Dr: Ke Knowles MD Re10/11/24 Status: [facility] Location: [facility] Disch: SPEC : [id number] RECD: 10/11/24-1409 STATUS: RACHAEL PAGE NUM: [id number] NICOLE: 10/11/24-[address] [facility] [address]: Ke Knowles MD ENTERED: 10/11/24-1412 SP TYPE: Surgical OTHR DR: Carlos Cole MD ORDERED: HE Stain/3, Gross Micro L4 Diagnosis Colon, polyp at 20 cm, polypectomy: Hyperplastic polyp. Clinical History Pre-Op Dx: Screening Post-Op Dx: Colon polyp Microscopic Description Microscopic sections reviewed. Material Received Polyp at 20 Gross Description Received in formalin labeled ?polyp at 20? is a fragment of pink white soft tissue measuring 0.3 cm in greatest dimension which is wrapped in lens paper and entirely submitted for microscopic examination, 1 piece in cassette A. ([facility]) Copies To: Carlos Cole MD [facility] [address] [place] [address] Ke Knowles MD [facility] [address] [place] [address] Signed (signature on file) Wnedy Mo MD 10/14/24 1309 END OF REPORT Reason For Referral Referring Provider First Name Carlos Referring Provider Last Name Douglas Referring Provider Speciality Internal M edicine Referred Organization [facility] Referred Provider Ke Knowles Referred Address [address] [facility],[place],[address], Referred Provider Specialty Gastroentero logy General Notes Nancy Baron 2024 10:22:28 AM >requested an o blue referral for visit with Dr. Knowles on [phone] Dr cole Referral Priority Routine Medications Medication SIG (Take, Route, Frequency, Duration) Notes Start Date End Date Status amLODIPine Besylate 5 MG TAKE 1 TABLET BY MOUTH DAILY Oral for 90 I10,Unavailable Active Lisinopril 10 MG 1 tablet Orally Once a day for 30 day(s) Active Omeprazole 40 MG 1 Orally Once a day every morning for 30 day(s) 03/21/2024 Active Immunizations Vaccine Route Administration Date Status Comme nts Influenza Unknown 02/04/2020 Refused Influenza Unknown 01/31/2024 Refused Social History Tobacco Use: Social History Observation [...] point) Points 3 Interpretation Negative Section Notes: Nonsmoker; occasional binge drinker 1-2 times per month Nonsmoker; occasional binge drinker 1-2 times per month Smoker; occasional alcohol 1 -2 times per month Smoker; occasional alcohol 1 -2 times per month Problems Problem Type SNOMED Code ICD Code Onset Dates Problem Status W/U Status Risk Notes Problem 646735746 Encounter for screening for malignant neoplasm of colon (Z12.11) Active confirmed Problem Diarrhea (17042410) Diarrhea (R19.7) Active con firmed Problem Nausea and vomiting (23435470) Nausea with vomiting, unspecified (R11.2) Active confirmed Problem Fatty liver (834836738) Fatty liver (K76.0) Active confirmed Problem 484676077 Family history o f colon cancer (Z80.0) Active confirmed Problem 803284117 Abnormal upper gastrointestinal barium series (R93.3) Active confirmed Problem Iron excess (26487639) Iron excess (E83.19) Active confirmed Problem Left upper quadrant pain (484662076) Abdominal pain, LUQ (R10.12) Active confirmed Problem 067422773 Abnormal CT scan , stomach (R93.3) Active confirmed Problem Odynophagia (54642923) Odynophagia (R13.10) Active confirmed Problem 90100028 Diarrhea, unspecified type (R19.7) Active confirmed Problem Elevated liver enzymes level (554321349) Elevated liver function tests (R94.5) Active confirmed Problem 278835577 Non-intractable vomiting without nausea, unspecified vomiting type (R11.11) Active confirmed Problem Family history of malignant neoplasm of gastrointestinal tract (153173645) Family history of colon cancer in mother (Z80.0) Active confirmed Problem Splenomegaly (16256383) Splenomegaly (R16.1) Active confirmed Problem Gastroesophageal reflux disease (937882086) Chronic GERD (K21.9) Active confirmed Vital Signs Temperature 98.4 degrees Fahrenheit 06/12/2024 Blood pressure diastolic 00 mm Hg 06/12/2024 Height 70 in 06/12/2024 Blood pressure systolic 000 mm Hg 06/12/2024 Weight 220 lbs 06/12/2024 BMI 31.56 kg/m2 06/12/2024 Encounters Encounter Location Date Provider Diagnosis [facility] [place] [address] [place] [id number] 10/11/2024 Ke Knowles [facility] [address] [place] [phone] 01/31/2024 Ke Knowles Fatty liver K76.0 ; Elevated liver function tests R94.5 ; Iron excess E83.19 ; Splenomegaly R16.1 ; Family history of colon cancer in mother Z80.0 and Abdominal pain, LUQ R10.12 [facility] [address] [place] [phone] 06/12/2024 Ke Eleni Family history of colon cancer Z80.0 ; Fatty liver K76.0 ; Encounter for screening for malignant neoplasm of colon Z12.11 and Chronic GERD K21.9 [facility] [address] [place] [phone] 01/31/2024 Ke Knowles [facility] [address] [place] [phone] 03/05/2024 Ke Knowles [facility] [address] [place] [phone] 03/18/2024 Ke Knowles [facility] [address] [place] [phone] 03/21/2024 Ke Knowles Odynophagia R13.10 [facility] [address] [place] [address] 04/03/2024 Ke Knowles Assessments Encounter Date Diagnosis (ICD Code) Assessment Notes Treatment Notes Treatment Clinical Notes Section Notes 01/31/2024 Fatty liver (ICD-10 - K76.0) Overall, Rob appears quite well. In regard to his intermittent left upper quadrant discomfort we did review his workup including the upper endoscopy and imaging studies. Based on all of that information, the clinical history, and his good clinical appearance, I advised him that I do not think the left upper quadrant discomfort represents any significant intra-abdominal pathology. I advised him that the slight splenomegaly might be playing a role in his symptoms given the positional nature, but I also advised him that the discomfort may very well simply be musculoskeletal given the positional nature as well. I don't think that needs any further workup at this time. However, we did review that I am concerned about his elevated LFTs, evidence of fatty liver, and the possible association with the slight splenomegaly. We did review that fatty liver can progress insidiously with increased risk of progressive liver disease including even cirrhosis. Therefore, I advised him that it will be important that we fully assess his liver and be sure there are no other underlying causes of the elevated LFTs that might require further testing such as a liver biopsy. I have ordered a complete liver workup as described below including studies to rule out hereditary hemachromatosis. I ordered a repeat abdominal ultrasound along with liver elastography to further assess for any underlying significant liver disease with fibrosis that might be contributing to splenomegaly as well. I have ordered laboratories to assess for any risk factors for the fatty liver such as hyperlipidemia and undiagnosed diabetes. We did review the importance of watching his diet, trying to lose some weight, and avoiding alcohol completely. Depending upon the results of all of his testing I advised him that I may be in touch with him to set up a liver biopsy prior to her next office visit. Certainly if the liver enzymes remain significantly elevated as they had been last year and/or there is evidence of some specific liver disease such as hemachromatosis we would want to obtain a liver biopsy sooner, rather than later. If the ultimate diagnosis is that of fatty liver but the significant elevation of the LFTs persist and/or there is evidence of ongoing significant liver inflammation and/or fibrosis, I would then want to initiate a trial of ursodiol for that. We did review that he will be due for a followup colonoscopy in 2024 given his significant family history of colon cancer in his mother at an early age and his negative colonoscopy in 2019. I will plan to see Rob in the Fall for his followup visit but will be in touch with him prior to that if he requires a liver biopsy. Rob was comfortable with this plan. Thank you again for allowing me to participate in Rob's care. I shall continue to keep you advised of his progress. 01/31/2024 Elevated liver function tests (ICD-10 - R94.5) Overall, Rob appears quite well. In regard to his intermittent left upper quadrant discomfort we did review his workup including the upper endoscopy and imaging studies. Based on all of that information, the clinical history, and his good clinical appearance, I advised him that I do not think the left upper quadrant discomfort represents any significant intra-abdominal pathology. I advised him that the slight splenomegaly might be playing a role in his symptoms given the positional nature, but I also advised him that the discomfort may very well simply be musculoskeletal given the positional nature as well. I don't think that needs any further workup at this time. However, we did review that I am concerned about his elevated LFTs, evidence of fatty liver, and the possible association with the slight splenomegaly. We did review that fatty liver can progress insidiously with increased risk of progressive liver disease including even cirrhosis. Therefore, I advised him that it will be important that we fully assess his liver and be sure there are no other underlying causes of the elevated LFTs that might require further testing such as a liver biopsy. I have ordered a complete liver workup as described below including studies to rule out hereditary hemachromatosis. I ordered a repeat abdominal ultrasound along with liver elastography to further assess for any underlying significant liver disease with fibrosis that might be contributing to splenomegaly as well. I have ordered laboratories to assess for any risk factors for the fatty liver such as hyperlipidemia and undiagnosed diabetes. We did review the importance of watching his diet, trying to lose some weight, and avoiding alcohol completely. Depending upon the results of all of his testing I advised him that I may be in touch with him to set up a liver biopsy prior to her next office visit. Certainly if the liver enzymes remain significantly elevated as they had been last year and/or there is evidence of some specific liver disease such as hemachromatosis we would want to obtain a liver biopsy sooner, rather than later. If the ultimate diagnosis is that of fatty liver but the significant elevation of the LFTs persist and/or there is evidence of ongoing significant liver inflammation and/or fibrosis, I would then want to initiate a trial of ursodiol for that. We did review that he will be due for a followup colonoscopy in 2024 given his significant family history of colon cancer in his mother at an early age and his negative colonoscopy in 2019. I will plan to see Rob in the Fall for his followup visit but will be in touch with him prior to that if he requires a liver biopsy. Rob was comfortable with this plan. 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 We reviewed that gene is fairly common [...] he can decrease the omeprazole to the ocfv-kbm-zypyxum 20 mg dose as long as it [...] keep you advised of his progress. 06/12/2024 Family history of colon cancer (ICD-10 [...] show it to his and his son's manager money. We reviewed that gene is fairly common [...] he can decrease the omeprazole to the jjdx-slu-efjoter 20 mg dose as long as it [...] to keep you advised of his progress. 03/21/2024 Odynophagia (ICD-10 - R13.10) 01/31/2024 Iron excess (ICD-10 - E83.19) Overall, Rob appears quite well. In regard to his intermittent left upper quadrant discomfort we did review his workup including the upper endoscopy and imaging studies. Based on all of that information, the clinical history, and his good clinical appearance, I advised him that I do not think the left upper quadrant discomfort represents any significant intra-abdominal pathology. I advised him that the slight splenomegaly might be playing a role in his symptoms given the positional nature, but I also advised him that the discomfort may very well simply be musculoskeletal given the positional nature as well. I don't think that needs any further workup at this time. However, we did review that I am concerned about his elevated LFTs, evidence of fatty liver, and the possible association with the slight splenomegaly. We did review that fatty liver can progress insidiously with increased risk of progressive liver disease including even cirrhosis. Therefore, I advised him that it will be important that we fully assess his liver and be sure there are no other underlying causes of the elevated LFTs that might require further testing such as a liver biopsy. I have ordered a complete liver workup as described below including studies to rule out hereditary hemachromatosis. I ordered a repeat abdominal ultrasound along with liver elastography to further assess for any underlying significant liver disease with fibrosis that might be contributing to splenomegaly as well. I have ordered laboratories to assess for any risk factors for the fatty liver such as hyperlipidemia and undiagnosed diabetes. We did review the importance of watching his diet, trying to lose some weight, and avoiding alcohol completely. Depending upon the results of all of his testing I advised him that I may be in touch with him to set up a liver biopsy prior to her next office visit. Certainly if the liver enzymes remain significantly elevated as they had been last year and/or there is evidence of some specific liver disease such as hemachromatosis we would want to obtain a liver biopsy sooner, rather than later. If the ultimate diagnosis is that of fatty liver but the significant elevation of the LFTs persist and/or there is evidence of ongoing significant liver inflammation and/or fibrosis, I would then want to initiate a trial of ursodiol for that. We did review that he will be due for a followup colonoscopy in 2024 given his significant family history of colon cancer in his mother at an early age and his negative colonoscopy in 2019. I will plan to see Rob in the Fall for his followup visit but will be in touch with him prior to that if he requires a liver biopsy. Rob was comfortable with this plan. 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 We reviewed that gene is fairly common [...] he can decrease the omeprazole to the [id number]-[id number] 20 mg dose as long as it [...] to keep you advised of his progress. 01/31/2024 Splenomegaly (ICD-10 - R16.1) Overall, Rob appears quite well. In regard to his intermittent left upper quadrant discomfort we did review his workup including the upper endoscopy and imaging studies. Based on all of that information, the clinical history, and his good clinical appearance, I advised him that I do not think the left upper quadrant discomfort represents any significant intra-abdominal pathology. I advised him that the slight splenomegaly might be playing a role in his symptoms given the positional nature, but I also advised him that the discomfort may very well simply be musculoskeletal given the positional nature as well. I don't think that needs any further workup at this time. However, we did review that I am concerned about his elevated LFTs, evidence of fatty liver, and the possible association with the slight splenomegaly. We did review that fatty liver can progress insidiously with increased risk of progressive liver disease including even cirrhosis. Therefore, I advised him that it will be important that we fully assess his liver and be sure there are no other underlying causes of the elevated LFTs that might require further testing such as a liver biopsy. I have ordered a complete liver workup as described below including studies to rule out hereditary hemachromatosis. I ordered a repeat abdominal ultrasound along with liver elastography to further assess for any underlying significant liver disease with fibrosis that might be contributing to splenomegaly as well. I have ordered laboratories to assess for any risk factors for the fatty liver such as hyperlipidemia and undiagnosed diabetes. We did review the importance of watching his diet, trying to lose some weight, and avoiding alcohol completely. Depending upon the results of all of his testing I advised him that I may be in touch with him to set up a liver biopsy prior to her next office visit. Certainly if the liver enzymes remain significantly elevated as they had been last year and/or there is evidence of some specific liver disease such as hemachromatosis we would want to obtain a liver biopsy sooner, rather than later. If the ultimate diagnosis is that of fatty liver but the significant elevation of the LFTs persist and/or there is evidence of ongoing significant liver inflammation and/or fibrosis, I would then want to initiate a trial of ursodiol for that. We did review that he will be due for a followup colonoscopy in 2024 given his significant family history of colon cancer in his mother at an early age and his negative colonoscopy in 2019. I will plan to see Rob in the Fall for his followup visit but will be in touch with him prior to that if he requires a liver biopsy. Rob was comfortable with this plan. 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 We reviewed that gene is fairly common [...] he can decrease the omeprazole to the hftf-rpa-ltahrio 20 mg dose as long as it [...] to keep you advised of his progress. 01/31/2024 Family history of colon cancer in mother (ICD-10 - Z80.0) Overall, Rob appears quite well. In regard to his intermittent left upper quadrant discomfort we did review his workup including the upper endoscopy and imaging studies. Based on all of that information, the clinical history, and his good clinical appearance, I advised him that I do not think the left upper quadrant discomfort represents any significant intra-abdominal pathology. I advised him that the slight splenomegaly might be playing a role in his symptoms given the positional nature, but I also advised him that the discomfort may very well simply be musculoskeletal given the positional nature as well. I don't think that needs any further workup at this time. However, we did review that I am concerned about his elevated LFTs, evidence of fatty liver, and the possible association with the slight splenomegaly. We did review that fatty liver can progress insidiously with increased risk of progressive liver disease including even cirrhosis. Therefore, I advised him that it will be important that we fully assess his liver and be sure there are no other underlying causes of the elevated LFTs that might require further testing such as a liver biopsy. I have ordered a complete liver workup as described below including studies to rule out hereditary hemachromatosis. I ordered a repeat abdominal ultrasound along with liver elastography to further assess for any underlying significant liver disease with fibrosis that might be contributing to splenomegaly as well. I have ordered laboratories to assess for any risk factors for the fatty liver such as hyperlipidemia and undiagnosed diabetes. We did review the importance of watching his diet, trying to lose some weight, and avoiding alcohol completely. Depending upon the results of all of his testing I advised him that I may be in touch with him to set up a liver biopsy prior to her next office visit. Certainly if the liver enzymes remain significantly elevated as they had been last year and/or there is evidence of some specific liver disease such as hemachromatosis we would want to obtain a liver biopsy sooner, rather than later. If the ultimate diagnosis is that of fatty liver but the significant elevation of the LFTs persist and/or there is evidence of ongoing significant liver inflammation and/or fibrosis, I would then want to initiate a trial of ursodiol for that. We did review that he will be due for a followup colonoscopy in 2024 given his significant family history of colon cancer in his mother at an early age and his negative colonoscopy in 2019. I will plan to see Rob in the Fall for his followup visit but will be in touch with him prior to that if he requires a liver biopsy. Rob was comfortable with this plan. Thank you again for allowing me to participate in Rob's care. I shall continue to keep you advised of his progress. 01/31/2024 Abdominal pain, LUQ (ICD-10 - R10.12) Overall, Rob appears quite well. In regard to his intermittent left upper quadrant discomfort we did review his workup including the upper endoscopy and imaging studies. Based on all of that information, the clinical history, and his good clinical appearance, I advised him that I do not think the left upper quadrant discomfort represents any significant intra-abdominal pathology. I advised him that the slight splenomegaly might be playing a role in his symptoms given the positional nature, but I also advised him that the discomfort may very well simply be musculoskeletal given the positional nature as well. I don't think that needs any further workup at this time. However, we did review that I am concerned about his elevated LFTs, evidence of fatty liver, and the possible association with the slight splenomegaly. We did review that fatty liver can progress insidiously with increased risk of progressive liver disease including even cirrhosis. Therefore, I advised him that it will be important that we fully assess his liver and be sure there are no other underlying causes of the elevated LFTs that might require further testing such as a liver biopsy. I have ordered a complete liver workup as described below including studies to rule out hereditary hemachromatosis. I ordered a repeat abdominal ultrasound along with liver elastography to further assess for any underlying significant liver disease with fibrosis that might be contributing to splenomegaly as well. I have ordered laboratories to assess for any risk factors for the fatty liver such as hyperlipidemia and undiagnosed diabetes. We did review the importance of watching his diet, trying to lose some weight, and avoiding alcohol completely. Depending upon the results of all of his testing I advised him that I may be in touch with him to set up a liver biopsy prior to her next office visit. Certainly if the liver enzymes remain significantly elevated as they had been last year and/or there is evidence of some specific liver disease such as hemachromatosis we would want to obtain a liver biopsy sooner, rather than later. If the ultimate diagnosis is that of fatty liver but the significant elevation of the LFTs persist and/or there is evidence of ongoing significant liver inflammation and/or fibrosis, I would then want to initiate a trial of ursodiol for that. We did review that he will be due for a followup colonoscopy in 2024 given his significant family history of colon cancer in his mother at an early age and his negative colonoscopy in 2019. I will plan to see Rob in the Fall for his followup visit but will be in touch with him prior to that if he requires a liver biopsy. Rob was comfortable with this plan. Thank you again for allowing me to participate in Rob's care. I shall continue to keep you advised of his progress. Plan Of Treatment Pending Test Test Name Order Date CHEM [...] Muscle Antibody 01/31/2024 Hepatitis A,B,C Profile 01/31/2024 Pathology 10/11/2024 US abdomen comp w elastography Hemoglobin A1c 01/31/2024 Future Test Test Name Order Date UPPER GI ENDOSCOPY 02/06/2020 COLONOSCOPY 02/06/2020 COLONOSCOPY 06/12/2024 Next Appt Details Provider Name:Ke Knowles , 05/14/2025 04:00:00 PM, [address] [facility], [address], [place], [address], Insurance Providers Payer Name Payer Address Payer Phone Subscriber Number Group Number Insured Name Patient Relationship to Insured Coverage Start Date Coverage End Date [facility] [employer] [address] [place] [address] [id number] ROB CARREON Self - patient is the insured Medical (General) History Medical History History ICD Code Denies OH,DM,CVA,Lung disease,renal dise ase HTN Discrete episodes of nausea, diarrhea, and some vomiting during winter months over the past few years of unclear etiology. A CAT scan in June of 2019 during an acute episode revealed a distended stomach, but no other abnormalities. An upper GI series in 2017 reveals some possible mild duodenitis and some [...]
--- NOTE | 2024-10-31 08:09 | A.OFFPC_ITS ---
Vital Signs 10/31/24 08:11 Height 5 ft 10 in Weight 226 lb 2 oz BMI 32.4 BP 120/64 Blood Pressure Location Lt brachial Position Sitting Pulse 69 Pulse Source Pulse Oximeter Temp 97.1 F Temp Source Temporal Artery Scan Pulse Oximetry (%) 98 Oxygen Delivery Method Room Air Intake Visit Reasons: swollen lymph node under his left armpit Intake Note: Patient is here to follow up on Swollen lymph node under left armpit. Drawing Frame Tender Required: No Developmental Specialist: Not Required per policy Accompanied by: Self / Same As Patient Allergies No Known Allergies Allergy (Verified 10/31/24 08:10) Tobacco use date assessed: 10/31/24 Dental Screening Dental Screen Date: 10/07/24 [facility] Medical History (Updated 10/09/24 @ 13:49 by Graciela Ramos RN) NAFLD (nonalcoholic fatty liver disease) Murmur HTN (hypertension) PVD (peripheral vascular disease) Elevated LFTs Decreased hearing of right ear Right otitis media Benign essential hypertension Right hand pain Screening for hyperlipidemia History of intravenous drug abuse Irritable bowel disease Tobacco abuse GERD (gastroesophageal reflux disease) Obesity (BMI 30-39.9) Surgical History (Updated 10/31/24 @ 08:13 by ANNY Yanez) History of esophagogastroduodenoscopy (EGD) History of colonoscopy Family History Mother Cancer Colon cancer Scleroderma Father High blood pressure Other Substance abuse Social History Household Members: Spouse Housing: House Are you a primary healthcare facility administrator to a significant other at home: No Do you presently have visiting nurse or other home services: No Alcohol intake: current Alcohol intake frequency: a few times a month Comment: once a month 6 pack Patient Tobacco Use Status: Current everyday Tobacco user Tobacco use type: Cigarette Cigarette Packs Per Day: 1 Cigarettes Per Day: 15 Years Smoked: 25 e-Cigarette/Vaping Use: Never Used Second Hand Smoke Exposure: Yes service: No Current occupational status: employed Current occupational exposures/hazards: No Cognitive needs: No Hearing needs: No Vision needs: Yes (glasses) Questionnaire Thrive Questionnaire Date Thrive assessed: 10/07/24 I am a: Patient What is your living situation today?: I have a steady place to live Within the past 12 months, did the food you bought not last and you didn't have the money to get more?: Never true Within the past 12 months, did you worry whether your food would run out before you got money to buy more?: Never true Do you have trouble paying for medicines?: No Do you have trouble getting transportation to medical appointments?: No Do you have trouble paying your heating and electricity bill?: No Do you have trouble taking care of your child, family member or friend?: No Do you have trouble with day-to-day activities such as bathing, preparing meals, shopping, managing finances, etc.?: No Are you currently unemployed and looking for a job?: No Are you interested in more education?: No Please select the resources that you would like help with: None Currently or been in a relationship where the following occur: No concerns reported THRIVE Score: 0 ÁNGELA-7 AMB Questionnaire ÁNGELA-7 Date ÁNGELA - 7 assessed: 10/07/24 Source: Developed by Drs. Ke Navarro, Keisha Miranda, Anthony Washington and colleagues, with an educational keisha from [employer]. Physical exam (Primary Care) Vital Signs: Last Vital Signs Temp 97.1 F 10/31/24 08:11 Pulse 69 10/31/24 08:11 BP 120/64 10/31/24 08:11 Pulse Ox 98 10/31/24 08:11 Oxygen Delivery Method Room Air 10/31/24 08:11 BMI result Body Mass Index 32.4 Tobacco/Smoking Status: Tobacco use Status Tobacco use date assessed 10/31/24 10/31/24 08:14 Patient Tobacco Use Status Current everyday Tobacco 10/31/24 08:14 Tobacco use type Cigarette 10/31/24 08:14 e-Cigarette/Vaping Use Never Used 10/31/24 08:14 Thrive Assessment: Date of Thrive Assessment Date Thrive assessed 10/07/24 10/31/24 08:14 Currently or been in a relationship where the following occur: No concerns reported Coding Level of Care Code Est Pt Level 4 (08526) Complex EM visit Add On G2211 Diagnoses Lymphadenopathy R59.1 Tinea corporis B35.4 Assessment & Plan Assessment & Plan (1) Lymphadenopathy: Code(s): R59.1 - Generalized enlarged lymph nodes Plan: History of Present Illness The patient is a 44-year-old male presenting with swelling concerns suspected to be a cyst and recurring skin rash. The patient first noticed axillary swelling with pain a few weeks before October 06, discussing it during an annual physical. The primary assessment was a cyst, though symptoms worsened over the next 10 days, leading to further evaluation at an urgent care facility. In the subsequent evaluation, no lymph nodes were identified in the axillary region, but lymphadenopathy was noted in the groin. Persistent though intermittent, discomfort led the patient to seek further evaluation. Additionally, the patient reports a recurring rash on the buttock, suggestive of tinea corporis, periodically exacerbated by sweating. The patient denies any systemic symptoms such as appetite changes or impaired functional ability, underscoring the rash's recurrence and its exacerbation under specific conditions. 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 - Exercise: Able to perform daily activities and exercise without limitation. - Impact of condition: Rash exacerbated by excessive sweating. Review of Systems - Musculoskeletal: Denies limitation in activities; denies recent exercise- induced symptoms. - Constitutional: Denies change in appetite, energy levels normal. - Dermatological: Reports recurrent rash on buttock (tinea corporis); denies discharge. Physical Exam General: Cooperative and healthy appearing Nutritional Appearance: Well nourished Orientation/consciousness: Patient oriented x3 Limitations: No limitations Head: Normal to inspection General: Appearance normal, both eyes and all related structures Neck: Normal visual inspection Chest: Normal palpation of entire chest wall Respiratory: Normal respiratory effort Neurology: Patient oriented x3 Skin: Right buttock: fading erythematous rash with overlying scales Lymph node evaluation; Axilla: No lymph node palpable. No femoral lymph nodes palpable Results - Labs: Recent CBC, HIV, and other blood works were performed, all reported as normal. Plan The patient continues to exhibit concerns related to axillary swelling previously suggested to be a cyst, necessitating an ultrasound for deeper examination to confirm the absence of lymphadenopathy. The skin rash diagnosed as tinea corporis, usually worsened by sweating, will be managed with antifungal cream. Assurance of non-significance in findings serves to affirm prior assessments. Proactive imaging is advised to allay persistent concerns following earlier evaluations. Patient was informed and verbally consented to the use of an ambient scribe for clinic note documentation during this visit. Discussion Notes I emphasized the assessment confirming no axillary lymphadenopathy and proposed an ultrasound for confirmation to prohibit lingering questions, promoting forthright patient reassurance. I advised treatment with antifungal cream for the tinea corporis rash and informed the patient of its likelihood of amelioration with topical therapy under current prescriptions. We discussed potential antibiotic use or alternate interventions should symptoms persist post-treatment. I highlighted the importance of follow-up post-ultrasound and underscored self-monitoring protocols. Patient Instructions - Apply prescribed antifungal cream to areas of rash as directed. - Monitor symptoms and note any changes in swelling or rash. - Schedule and complete the ultrasound as planned. - Seek medical attention if symptoms significantly worsen or persist. (2) Tinea corporis: Code(s): B35.4 - Tinea corporis Category: Medical Plan: Ketoconazole added to the regimen Orders: Orders US abdomen limited Today R59.1 - Generalized enlarged lymph nodes Medications: New ketoconazole 2% 1 appl topical DAILY 30 grams 1RF
[2024-10-31 08:11] VITALS: BP 120/64; PULSE 69; TEMP 36.2; O2SAT 98; BMI 32.4
== END 2024-10-31 10:45 | disposition home or self-care (01) ==
LOC: HO.HMCH 07:59
PROVIDERS: PCP Internal Medicine; Visit Provider Internal Medicine
DX: R59.1 Generalized enlarged lymph nodes (principal); B35.4 Tinea corporis

== ENCOUNTER 2024-12-02 15:33 | Outpatient (AMB) | payer BC, SELFPAY ==
[2024-12-02 15:41] VITALS: BP 130/80; PULSE 66; O2SAT 98; BMI 31.8
--- NOTE | 2024-12-02 15:41 | A.OFFPC_ITS ---
Vital Signs 12/02/24 15:41 Height 5 ft 10 in Weight 221 lb 6 oz BMI 31.8 BP 130/80 Blood Pressure Location Lt brachial Position Sitting Pulse 66 Pulse Source Pulse Oximeter Pulse Oximetry (%) 98 Oxygen Delivery Method Room Air Intake Visit Reasons: Dr. 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: No Accompanied by: Self / Same As Patient Allergies No Known Allergies Allergy (Verified 12/02/24 16:27) Medication List - Last Reconciled 12/02/24 by Cristiano Duran MD amlodipine 5 mg PO DAILY blood pressure monitor As directed ketoconazole 2% 1 appl topical DAILY lisinopril 40 mg PO DAILY naproxen 500 mg PO BID 30 days omeprazole 40 mg PO QAM Tobacco use date assessed: 12/02/24 Dental Screening Dental Screen Date: 12/02/24 Did you have a dental visit in the last 12 months?: Yes Did you have a dental problem in the last 6 months where you did not have access to dental care?: No Was dental information given to patient?: Patient has dentist HPI Dr. Huber- [place] in the pelvic area HPI Details Patient comes in for discussion/evaluation of his recent symptoms States that he just had his annual physical back on 10/06/24 with his PCP but his exam at the time did not reveal any cyst in his axilla States that he now has had a painful nodule near his L axilla that he feels have gotten worse over the past few weeks as he has been experiencing a persistent pain over his left axillary area lately He reportedly went to a an urgent care in [place] recently and had tests done for Lyme disease and HIV, both of which came back negative He was advised that he may have some obstruction of his axillary sweat glands and was advised to see his PCP for further evaluation Patient also reports experiencing on and off discomfort over his groin areas lately but he has not noticed any swelling or skin lesions there Recalls that his LFTs were elevated when he had his labs done back on 10/03/24 - AST was at 58 and ALT at 128 He remains very concerned about what his symptoms might mean and is frustrated about the negative test results that he has had so far as nothing that has been checked so far provided him with answers to his symptoms He tested positive for a hemochromatosis variant and also has a history of fatty liver disease He denies any fever, headaches or dizziness Denies any chest pains, no increased shortness of breath No nausea/vomiting, no abdominal pain No change in bowel habits noted [facility] Medical History (Updated 12/02/24 @ 16:44 by Cristiano Duran MD) Generalized enlarged lymph nodes NAFLD (nonalcoholic fatty liver disease) Murmur HTN (hypertension) PVD (peripheral vascular disease) Elevated LFTs Decreased hearing of right ear Right otitis media Benign essential hypertension Right hand pain Screening for hyperlipidemia History of intravenous drug abuse Irritable bowel disease Tobacco abuse GERD (gastroesophageal reflux disease) Obesity (BMI 30-39.9) Surgical History (Updated 12/05/24 @ 07:49 by Hortencia Jeffries) History of esophagogastroduodenoscopy (EGD) History of colonoscopy (~10/12/24) Family History Mother Cancer Colon cancer Scleroderma Father High blood pressure Other Substance abuse Social History Household Members: Spouse Housing: House Are you a primary customer care coordinator to a significant other at home: No Do you presently have visiting nurse or other home services: No Alcohol intake: current Alcohol intake frequency: a few times a month Comment: once a month 6 pack Patient Tobacco Use Status: Current everyday Tobacco user Tobacco use type: Cigarette Cigarette Packs Per Day: 1 Cigarettes Per Day: 15 Years Smoked: 25 e-Cigarette/Vaping Use: Never Used Second Hand Smoke Exposure: Yes service: No Current occupational status: employed Current occupational exposures/hazards: No Cognitive needs: No Hearing needs: No Vision needs: Yes (glasses) Questionnaire PHQ-9 Over the last 2 weeks, how often have you been bothered by any of the following problems? 1. Little interest or pleasure in doing things: not at all 2. Feeling down, depressed, or hopeless: several days 3. Trouble falling or staying asleep, or sleeping too much: not at all 4. Feeling tired or having little energy: not at all 5. Poor appetite or overeating: several days 6. Feeling bad about yourself - or that you are a failure or have let yourself or your family down: not at all 7. Trouble concentrating on things, such as reading the newspaper or watching television: several days 8. Moving or speaking so slowly that other people could have noticed. Or the opposite - being so fidgety or restless that you have been moving around a lot more than usual: not at all 9. Thoughts that you would be better off or of hurting yourself in some way: not at all Total score: 3 Depression Screening Interpretation: Negative Depression Screening Done: Yes 19283 - PHQ-9 Billing: Yes Source: Developed by Drs. Ke Navarro, Keisha Miranda, Anthony Washington and colleagues, with an educational keisha from [email or web address]. Thrive Questionnaire Date Thrive assessed: 12/02/24 I am a: Patient What is your living situation today?: I have a steady place to live Within the past 12 months, did the food you bought not last and you didn't have the money to get more?: Never true Within the past 12 months, did you worry whether your food would run out before you got money to buy more?: Never true Do you have trouble paying for medicines?: No Do you have trouble getting transportation to medical appointments?: No Do you have trouble paying your heating and electricity bill?: No Do you have trouble taking care of your child, family member or friend?: No Do you have trouble with day-to-day activities such as bathing, preparing meals, shopping, managing finances, etc.?: No Are you currently unemployed and looking for a job?: No Are you interested in more education?: No Please select the resources that you would like help with: None Currently or been in a relationship where the following occur: No concerns reported THRIVE Score: 0 AUDIT C Alcohol Use Questionnaire (AUDIT-C) 1. How often do you have a drink containing alcohol?: Monthly or less 2. How many drinks containing alcohol do you have on a typical day when you are drinking?: 1 or 2 3. How often do you have six or more drinks on one occasion?: Never Total Score: 1 Score Reviewed/Action Taken: Yes ÁNGELA-7 AMB Questionnaire ÁNGELA-7 Date ÁNGELA - 7 assessed: 12/02/24 Feeling nervous, anxious, or on edge: 0 = Not at all Not being able to stop or control worryin = Not at all Worrying too much about different things: 0 = Not at all Trouble relaxin = Not at all Being so restless that it is hard to sit still: 0 = Not at all Becoming easily annoyed or irritable: 0 = Not at all Feeling afraid as if something awful might happen: 0 = Not at all Total ÁNGELA-7 score (0-4 normal; 5-9 mild; 10-14 moderate; 15-21 severe): 0 Source: Developed by Drs. Ke Navarro, Keisha Miranda, Anthony Washington and colleagues, with an educational keisha from [email or web address]. Review of Systems Const Denies chills, Denies fatigue, Denies fever(s) and Denies headache(s) ENT Denies dysphagia, Denies dizziness, Denies otalgia, Denies headache(s), Denies neck pain, Denies odynophagia and Denies sore throat Card Denies chest pain, Denies palpitations and Denies dyspnea Resp Denies chest congestion, Denies cough and Denies dyspnea GI Denies abdominal pain, Denies constipation, Denies dysphagia, Denies heartburn, Denies diarrhea, Denies nausea, Denies odynophagia and Denies vomiting Denies dysuria and Denies nocturia Musc Denies neck pain Skin/Breast Details: (+) persistent soreness in the left axillary area with no palpable cysts or lesions noted; (+) vague discomfort in the groin areas with also no palpable nodules or lesions Denies rash Neuro Denies dizziness and Denies headache(s) Endo Denies fatigue and Denies palpitations Physical exam (Primary Care) Vital Signs: Last Vital Signs Pulse 66 12/02/24 15:41 BP 130/80 12/02/24 15:41 Pulse Ox 98 12/02/24 15:41 Oxygen Delivery Method Room Air 12/02/24 15:41 BMI result Body Mass Index 31.8 Tobacco/Smoking Status: Tobacco use Status Tobacco use date assessed 12/02/24 12/02/24 15:48 Patient Tobacco Use Status Current everyday Tobacco 12/02/24 15:48 Tobacco use type Cigarette 12/02/24 15:48 e-Cigarette/Vaping Use Never Used 12/02/24 15:48 PHQ-9: PHQ-9 Score PHQ-9: Total score 3 12/02/24 16:30 Depression Screening Interpretation: Negative Thrive Assessment: Date of Thrive Assessment Date Thrive assessed 12/02/24 12/02/24 15:48 Currently or been in a relationship where the following occur: No concerns reported Const General: no acute distress and alert HENMT Throat: Yes posterior oropharynx normal and Yes tonsils normal (no TP congestion) Neck Neck: Yes supple and No lymphadenopathy Thyroid: Thyroid normal Resp Auscultation: clear to auscultation bilaterally, no rales and no wheezes Cardio Rate: regular rate Rhythm: regular rhythm Heart sounds: no murmurs GI Palpation (GI): Soft to palpation and nontender Auscultation: normal bowel sounds General: Yes no CVA tenderness Back/Spine/Pelvis Back: no CVA tenderness Thoracic/Lumbar Spine: No lumbar spinal tenderness Skin Other: (+) tenderness on palpation over the left axilla but no palpable masses, nodules, cysts or lesions are noted Rashes: no rashes Extrem General: Yes no clubbing, cyanosis or edema Coding Level of Care Code Est Pt Level 4 (01814) Diagnoses Lymphadenopathy R59.1 Additional Codes PHQ-9 - 66724 - PHQ-9 Billing: Yes ([id number]) Assessment & Plan Assessment & Plan (1) Lymphadenopathy: Code(s): R59.1 - Generalized enlarged lymph nodes Category: Medical Plan: Exam today revealed mostly left axillary tenderness with a few small palpable lymph nodes but these do not appear to be significantly enlarged or tender on palpation Will start patient empirically on Doxycycline 100 mg BID x 7 days and have advised him that if this does not help with his symptoms at all, then there is no need to continue or to try any other Abx at this time Will send him for labs to further evaluate his vague symptoms - these will include tests for EBV, CMV, hepatitis C, and RPR as well as the routine inflammatory markers Plan Follow up with PCP in 3 months Orders: Orders Hepatitis C Antibody Reflex 12/04/24 R59.1 - Generalized enlarged lymph nodes Ferritin 12/04/24 R59.1 - Generalized enlarged lymph nodes C Reactive Protein 12/04/24 R59.1 - Generalized enlarged lymph nodes Hepatitis B Profile 12/04/24 R59.1 - Generalized enlarged lymph nodes Brittany-Lundberg Virus Profile 12/04/24 R59.1 - Generalized enlarged lymph nodes Erythrocyte Sedimentation Rate 12/04/24 R59.1 - Generalized enlarged lymph nodes Lactate Dehydrogenase 12/04/24 R59.1 - Generalized enlarged lymph nodes Comprehensive Met. Panel 12/04/24 R59.1 - Generalized enlarged lymph nodes Cytomegalovirus Ab (IgG, IgM) 12/04/24 R59.1 - Generalized enlarged lymph nodes Complete Blood Count Auto Diff 12/04/24 D64.9 - Anemia, unspecified RPR Monitor reflex titer 12/04/24 R21 - Rash and other nonspecific skin eruption Medications: New doxycycline hyclate 100 mg PO BID 14 caps 0RF 7 days
== END 2024-12-02 16:54 | disposition home or self-care (01) ==
LOC: HO.HMCH 15:34
PROVIDERS: PCP Internal Medicine; Visit Provider Internal Medicine
DX: R59.1 Generalized enlarged lymph nodes (principal)

== ENCOUNTER → 2024-12-02 15:33 | Outpatient (BNVA) | payer BC, SELFPAY | PROVIDERS: PCP Internal Medicine; Visit Provider Internal Medicine | DX: R59.1 Generalized enlarged lymph nodes (principal) | CPT/HCPCS: 96127 ==

== ENCOUNTER 2024-12-04 10:00 | Outpatient (REF) | payer BC, SELFPAY ==
[2024-12-04 10:32] LABS: MANUAL DIFF FLAG NO
[2024-12-04 10:47] LABS: Basophils Percent Auto 0.5 % (0-2); Eosinophils Absolute Auto 0.2 X10*3/uL (0.0-0.4); Eosinophils Percent Auto 2.4 % (0-4); Hematocrit 43.5 % (42.0-52.0); Hemoglobin 15.7 g/dl (14.0-18.0); Imm Gran Abs Auto 0.01 X10*3/uL (0.00-0.03); Imm Gran Pct Auto 0.2 % (0.0-0.4); Lymphocytes Absolute Auto 2.6 X10*3/uL (1.2-4.9); Lymphocytes Percent Auto 42.1 % (20-40); Mean Corpuscular HGB Conc 36.1 g/dl (31.0-36.0); Mean Corpuscular Hemoglobin 31.7 pg (27.0-33.0); Mean Corpuscular Volume 87.9 fL (80.0-98.0); Mean Platelet Volume 10.1 fL (9.4-12.4); Monocytes Absolute Auto 0.4 X10*3/uL (0.1-1.2); Monocytes Percent Auto 6.2 % (2-11); Neutrophils Percent Auto 48.6 % (45-73); Platelet Count 203 X10*3/uL (160-400); Red Blood Count 4.95 X10*6/uL (4.60-5.80); Red Cell Distribution Width 12.9 % (11.0-16.0); White Blood Count 6.2 X10*3/uL (4.8-10.8)
[2024-12-04 11:24] LABS: Erythrocyte Sedimentation Rate 6 MM/HR (0-15)
--- OUTSIDE RECORDS SUMMARY | 2024-12-04 11:28 | XMS_ITS ---
Author Organization [facility] Address [address] [place] [address] Care Team Providers Care Branch Specialist Name Role Phone Carlos Cole MD Primary Care Provider Ke Owen Unavailable [phone] Allergies No Known Allergies REASON FOR VISIT [...] Status Risk Notes Problem Gastroesophageal reflux disease (780695312) Chronic GERD (K21.9) Active confirmed Vital Signs Temperature 98.4 degrees Fahrenheit 06/12/20 24 Blood pressure systolic 000 mm Hg 06/12/20 24 Blood pressure diastolic 00 mm Hg 024 Height 70 in 06/12/2024 Weight 220 lbs 06/12/2024 BMI 31.56 kg/m2 06/12/2024 Encounters Encounter Location Date Provider Diagnosis [facility] [address] [place] [address] 06/12/2024 Ke Knowles Family history of colon [...] show it to his and his son's tie bucker. We reviewed that gene is fairly common [...] he can decrease the omeprazole to the kydq-fru-iffhqrm 20 mg dose as long as it [...] show it to his and his son's tie bucker. We reviewed that gene is fairly common [...] he can decrease the omeprazole to the llot-kqq-tsoigpk 20 mg dose as long as it [...] show it to his and his son's tie bucker. We reviewed that gene is fairly common [...] he can decrease the omeprazole to the snwo-nmz-soyjenv 20 mg dose as long as it [...] show it to his and his son's tie bucker. We reviewed that gene is fairly common [...] he can decrease the omeprazole to the ggid-znr-miefhmw 20 mg dose as long as it [...] Provider Name:Ke Knowles , 05/14/2025 04:00:00 PM, [address] [place] [address], [address], [place], [address], Progress Notes * ROB BROOKE MDOB:1980 (43 yo M)Acc No.[id number]:06/12/2024 Progress Notes Patient:?ROB BROOKE Provider:?Ke Knowles MD :1980???Age:43 Y???Sex:Male Jorgito e:06/12/2024 Address:[address] [place], [place] [id number] Pcp:Carlos Cole MD Subjective: * Chief Complaints: [...] show it to his and his son's tie bucker. We reviewed that gene is fairly common [...] he can decrease the omeprazole to the rrar-pzf-wotmquf 20 mg dose as long as it [...] Pt sc rn tbco and id as [id number] BP SCR NOT PRFRM REC REASON NOS * Preventive Medicine:? ??Counseling:?Care goal follow-up plan:?Above Normal BMI Follow-up?Giving encouragement to exercise,?BMI management provided?Yes.? * Follow Up:?prn * * Sign off status: Completed true * Provider:?Ke Knowles MD Date:? 024 Generated for Aartiaby cresencio/Tiera/eTransmitting on:?12/04/2024 11:27 AM EDT History and Physical Notes * [...] He does have a physical job in [employer] and does not have a particularly healthy [...]
--- OUTSIDE RECORDS SUMMARY | 2024-12-04 11:28 | XMS_ITS | Patient Health Record ---
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 DETAILED ASSAY INFORMATION: Hereditary hemochromatosis (HH) [...] variants in the HFE gene, C282Y (NM 010260.2: c.845G>A, p.Dll618Xwd) and H63D (NM 473801.2: c.187C>G, p.Jpn25Hod), that are commonly associated with HH. These [...] Health care providers, please contact your local [facility] genetic counselor or call [phone] ( ) for assistance with the interpretation of these results. This test was developed and its analytical performance characteristics have been determined by [facility]. It has not been cleared or approved by FDA. This assay has been validated pursuant to the CLIA regulations and is used for clinical purposes. For more information, please refer to http://education.enEvolv.com/faq/he mochromatosis. (This link is being provided for informational/educatio nal purposes only.) A portion of the testing was [place] [facility]. Reviewed and signed by Laboratory results and submitted clinical information reviewed by Petrona Syed, Ph.D., HCLD, Signed on 03/23/2024 at 23:28 THIS TEST WAS PERFORMED AT: [email or web address] [address] [place] [address] FABIAN VELÁSQUEZ MD,PHD,BRIANNA Comprehensive Met. Panel Reviewed date:03/21/2024 08:35:24 PM Interpretation: Performing Lab:[facility], [address] [place] [phone] Notes/Report: Sodium 142 135-145 mmol/L Potassium 4.2 3.3-5.1 mmol/L Slight Hemoly sis Chloride 106 96-108 mmol/L Carbon Dioxide 27 22-29 mmol/L Anion Gap 13 12-20 Blood Urea Nitrogen 17 9-16 mg/dL Creatinine 0.85 0.5-1.4 mg/dL Estimated Glomerular Filt Rate > 60 NOTE: For -Nepalese individuals, multiply the result by 1.210. Chronic [...] PROFILE Reviewed date:03/07/2024 07:41:40 PM Interpretation: Performing Lab:[facility], [address] [place] [phone] Notes/Report: Iron 183 45-160 mcg/dL Total Iron Binding Capacity 348 228-428 mcg/dL Percent Iron Saturation 53 15-50 % Unsaturated Iron Binding 165 Ferritin Reviewed date:03/07/2024 07:41:34 PM Interpretation: Performing Lab:[facility], [address] [place] [phone] Notes/Report: Ferritin 214 20-250 ng/mL Lipid Panel Reviewed date:03/08/2024 07:23:01 PM Interpretation: Performing Lab:[facility], [address] [place] [phone] Notes/Report: Triglycerides 79 <150 mg/dL Desirable Triglyceride: [...] Ceruloplasmin Reviewed date:03/15/2024 11:34:43 PM Interpretation: Performing Lab:[facility], [address] [place] [phone] Notes/Report: Ceruloplasmin 23 14-30 mg/dL THIS TEST WAS PERFORMED AT: [facility] [address] [place] [phone] ESPERANZA FORBES MD Alpha 1 Anti-trypsin Reviewed date:03/15/2024 11:34:52 PM Interpretation: Performing Lab:[facility], [address] [place] [phone] Notes/Report: Alpha 1 Anti-trypsin 134 83-199 mg/dL THIS TEST WAS PERFORMED AT: [facility] [address] [place] [phone] ESPERANZA FORBES MD Liver Fibrosis Pnl Reviewed date:03/15/2024 11:35:10 PM Interpretation: Performing Lab:[facility], [address] [place] [phone] Notes/Report: Liver Fibrosis Score 0.72 Liver Fibrosis [...] a>0.62 and a<=1.00 : A3 (severe activity) NEP-Rvqyn-0-Macroglobuli n 348 106-279 mg/dL FIB-Haptoglobin 76 43-212 mg/dL FIB-Apolipoprotein A1 141 94-176 mg/dL FIB-Total Bilirubin 1.7 0.2-1.2 mg/dL FIB-GGT 28 3-95 U/L FIB-ALT 75 9-46 U/L Reference ID [id number] Footnote SEE NOTE The reliability of results is dependent on compliance with the preanalytical and analytical conditions recommended by [employer]. The tests have to be deferred for: [...] The performance characteristics have been determined by [facility]. It has not been cleared or approved by the U.S. Food and Drug Administration. Performance characteristics refer to the analytical performance of the test. [employer], [employer], the associated logo, [employer] and all associated [facility] mcclendon are the registered trademarks of [employer]. All third libertarian mcclendon - (R) and (TM) - are the property of their respective owners. (C) 2318-9732 [employer]. All rights reserved. THIS TEST WAS PERFORMED AT: [email or web address] [address] [place] [address] FABIAN VELÁSQUEZ MD,PHD,BRIANNA CARLOS Reflex Titer and Pattern Reviewed date:03/13/2024 11:20:27 PM Interpretation: Performing Lab:[address] [phone] Notes/Report: Anti Nuclear Antibody Screen NEGATIVE NEGATIVE [...] AC-0: Negative International Consensus on CARLOS Patterns (https://doi.org/10.15 15/tzto-0350-0583) For additional information, please refer to http://education.[employer]Save.Notizza/faq/FA Q177 (This link is being provided for informational/ educational purposes only.) THIS TEST WAS PERFORMED AT: [facility] [address] [place] [phone] ESPERANZA FORBES MD Anti Nuclear Antibody Titer TNP Anti Nuclear Antibody Pattern TNP CARLOS Titer 2 TNP CARLOS Pattern 2 TNP CARLOS Titer 3 TNP CARLOS Pattern 3 TNP Mitochondrial Antibody Reviewed date:03/15/2024 11:34:26 PM Interpretation: Performing Lab:[address] [phone] Notes/Report: Mitochondrial Antibodies NEGATIVE NEGATIVE THIS TEST WAS PERFORMED AT: [facility] [address] [place] [phone] ESPERANZA FORBES MD Mitochondrial Ab Titer TNP Smooth Muscle Antibody Reviewed date:03/15/2024 11:34:34 PM Interpretation: Performing Lab:[facility] [address] [address] Notes/Report: Smooth Muscle Antibody <20 <20 U [...] type 1. THIS TEST WAS PERFORMED AT: [email or web address]/[address] [address] CARROL MCMILLAN MD,PHD Hepatitis A,B,C Profile Reviewed date:03/09/2024 02:51:02 PM Interpretation: Performing Lab:[address] [phone] Notes/Report: Hepatitis A Antibody IgM Nonreactive Nonreactive [...] A1c Reviewed date:03/07/2024 07:41:13 PM Interpretation: Performing Lab:[address] [phone] Notes/Report: Hemoglobin A1c % 5.1 <6.0 % [...] average glucose, using the formula of the M7N-Mcwerfd Average Glucose study (ADAG), Diabetes Care, Vol.31,#8, Mar. 2007 Liver Panel Reviewed date:10/11/2024 05:27:38 PM Interpretation: Performing Lab:[address] [phone] Notes/Report: Bilirubin Total 1.6 0.0-1.0 mg/dL Bilirubin Direct 0.5 0.0-0.5 mg/dL Aspartate Amino Transferase 58 5-37 U/L Alanine Aminotransferase 128 0-40 U/L Total Protein 8.0 6.5-8.0 g/dL Albumin Level 4.8 3.5-5.0 g/dL Alkaline Phosphatase 77 39-117 U/L Drug Screen Urine Reviewed date:10/11/2024 05:17:48 PM Interpretation: Performing Lab:[facility], [address] [place] [phone] Notes/Report: Opiate Screen Urine Not Detected Not [...] (Not yet reviewed by provider) Interpretation: Performing Lab:[facility], [address] [place] [phone] Notes/Report: Name: Rob Carreon Age/Sex: 44/M : 1980 Unit#: [id number] Attend Dr: Ke Knowles MD Re10/11/24 Status: [facility] Location: [facility] [place] Disch: SPEC : [id number] RECD: 10/11/24-1409 STATUS: RACHAEL PAGE NUM: [id number] NICOLE: 10/11/24-[address] [facility] [address]: Ke Knowles MD ENTERED: 10/11/24-141 SP TYPE: Surgical OTHR DR: Carlos Cole [...] microscopic examination, 1 piece in cassette A. ([facility]) Copies To: Carlos Cole MD [facility],[place] [address] [place], [place] [id number] Ke Knowles MD [facility] [address] [place] [address] Signed (signature on file) Wendy Mo MD 10/14/24 1309 END OF REPORT Complete Blood Count Auto Di ff (Not yet reviewed by provider) Interpretation: Performing Lab:[facility], [address] [place] [phone] Notes/Report: White Blood Count 6.2 4.8-10.8 X10*3/uL Red Blood Count 4.95 4.60-5.80 X10*6/uL Hemoglobin 15.7 14.0-18.0 g/dl Hematocrit 43.5 42.0-52.0 % Mean Corpuscular Volume 87.9 80.0-98.0 fL Mean Corpuscular Hemoglobin 31.7 27.0-33.0 pg Mean Corpuscular HGB Conc 36.1 31.0-36.0 g/dl Red Cell Distribution Width 12.9 11.0-16.0 % Platelet Count 203 160-400 X10*3/uL Mean Platelet Volume 10.1 9.4-12.4 fL Neutrophils Percent Auto 48.6 45-73 % Imm Gran Pct Auto 0.2 0.0-0.4 % Lymphocytes Percent Auto 42.1 20-40 % Monocytes Percent Auto 6.2 2-11 % Eosinophils Percent Auto 2.4 0-4 % Basophils Percent Auto 0.5 0-2 % NRBC Pct Auto 0.0 0.0-0.2 /100WBC Neutrophils Absolute Auto 3.0 2.0-8.3 x10*3/uL Imm Gran Abs Auto 0.01 0.00-0.03 X10*3/uL Lymphocytes Absolute Auto 2.6 1.2-4.9 X10*3/uL Monocytes Absolute Auto 0.4 0.1-1.2 X10*3/uL Eosinophils Absolute Auto 0.2 0.0-0.4 X10*3/uL Basophils Absolute Auto 0.0 0.0-0.2 X10*3/uL NRBC Abs Auto 0.000 0.0-0.012 X10*3/uL Erythrocyte Sedimentation Ra te (Not yet reviewed by provider) Interpretation: Performing Lab:[facility], [address] [place] [phone] Notes/Report: Erythrocyte Sedimentation Rate 6 0-15 MM/HR Patients with polycythemia and many hemoglobin abnormalities may have depressed sed rates whereas patients with anemia may have elevated sed rates. Reason For Referral Referring Provider First Name Carlos Referring Provider Last Name Po Referring Provider Speciality Internal M edicine Referred Organization [facility] Referred Provider eK Knowles Referred Address [address] [place] [phone], Referred Provider Specialty Gastroentero logy General Notes Nancy Baron 2024 10:22:28 AM >requested an o blue referral for visit with Dr. Knowles on [phone] Dr cole Referral Priority Routine Medications Medication [...] Problem Status W/U Status Risk Notes Problem 222943305 Encounter for screening for malignant neoplasm of colon (Z12.11) Active confirmed Problem Diarrhea (91754113) Diarrhea (R19.7) Active con firmed Problem Nausea and vomiting (00670177) Nausea with vomiting, unspecified (R11.2) Active confirmed Problem Fatty liver (989312806) Fatty liver (K76.0) Active confirmed Problem 605181045 Family history o f colon cancer (Z80.0) Active confirmed Problem 606590275 Abnormal upper gastrointestinal barium series (R93.3) Active confirmed Problem Iron excess (36453572) Iron excess (E83.19) Active confirmed Problem Left upper quadrant pain (257910767) Abdominal pain, LUQ (R10.12) Active confirmed Problem 865342792 Abnormal CT scan , stomach (R93.3) Active confirmed Problem Odynophagia (48480427) Odynophagia (R13.10) Active confirmed Problem 82730533 Diarrhea, unspecified type (R19.7) Active confirmed Problem Elevated liver enzymes level (458850513) Elevated liver function tests (R94.5) Active confirmed Problem 522441907 Non-intractable vomiting without nausea, unspecified vomiting type (R11.11) Active confirmed Problem Family history of malignant neoplasm of gastrointestinal tract (219866954) Family history of colon cancer in mother (Z80.0) Active confirmed Problem Splenomegaly (08630215) Splenomegaly (R16.1) Active confirmed Problem Gastroesophageal reflux disease (060166272) Chronic GERD (K21.9) Active confirmed Vital Signs Temperature 98.4 degrees Fahrenheit 06/12/2024 Blood pressure diastolic 00 mm Hg 06/12/2024 Height 70 in 06/12/2024 Blood pressure systolic 000 mm Hg 06/12/2024 Weight 220 lbs 06/12/2024 BMI 31.56 kg/m2 06/12/2024 Encounters Encounter Location Date Provider Diagnosis [facility] Outpatient [address] [place] [id number] 10/11/2024 Ke Knowles Colon cancer screeni ng Z12.11 ; Family history of colon cancer Z80.0 ; Colon polyps K63.5 and Other hemorrhoids K64.8 [facility] [address] [place] [phone] 01/31/2024 Ke Knowles Fatty liver K76.0 ; Elevated liver function tests R94.5 ; Iron excess E83.19 ; Splenomegaly R16.1 ; Family history of colon cancer in mother Z80.0 and Abdominal pain, LUQ R10.12 [facility] [address] [place] [address] 06/12/2024 Ke Knowles Family history of colon cancer Z80.0 ; Fatty liver K76.0 ; Encounter for screening for malignant neoplasm of colon Z12.11 and Chronic GERD K21.9 [facility] [address] [place] [phone] 01/31/2024 Ke Knowles [facility] [address] [place] [phone] 03/05/2024 Ke Knowles [facility] [address] [place] [phone] 03/18/2024 Ke Knowles [facility] [address] [place] [phone] 03/21/2024 Ke Knowles Odynophagia R13.10 [facility] [address] [place] [address] 04/03/2024 Ke Knowles Assessments Encounter Date Diagnosis (ICD Code) Assessment Notes Treatment Notes Treatment Clinical Notes Section Notes 10/11/2024 Colon cancer screening (ICD-10 - Z12.11) 10/11/2024 Family history of colon cancer (ICD-10 - Z80.0) 01/31/2024 Fatty liver (ICD-10 - K76.0) Overall, [...] 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 We reviewed that gene is fairly common [...] he can decrease the omeprazole to the drom-bmn-kihthxz 20 mg dose as long as it [...] his progress. 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 We reviewed that gene is fairly common [...] he can decrease the omeprazole to the djhg-slx-lhxhncf 20 mg dose as long as it [...] to keep you advised of his progress. 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 We reviewed that gene is fairly common [...] he can decrease the omeprazole to the fzyx-tmc-ddrnftf 20 mg dose as long as it [...] WBC 09/29/2020 C DIFFICILE RFLX PCR 09/29/2020 Complete Blood Count Auto Diff 5 Erythrocyte Sedimentation Rate 5 Prothrombin Time INR 01/31/2024 Ferritin 01/31/2024 Lipid [...] Provider Name:Ke Knowles , 05/14/2025 04:00:00 PM, [address] [place] [address], [address], [place], [address], Insurance Providers Payer Name Payer Address Payer Phone Subscriber Number Group Number Insured Name Patient Relationship to Insured Coverage Start Date Coverage End Date [facility] [place] [employer] [address] [place] [address] [id number] ROB CARREON Self - patient is the insured Medical (General) History Medical History History ICD Code Denies MT,DM,CVA,Lung disease,renal dise ase HTN Discrete episodes of [...]
--- OUTSIDE RECORDS SUMMARY | 2024-12-04 11:28 | XMS_ITS ---
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 Generated for Aartii cresencio/Tiera/eTransmitting on:?12/04/2024 11:27 AM EDT
--- OUTSIDE RECORDS SUMMARY | 2024-12-04 11:28 | XMS_ITS ---
Author Organization [facility] Address [address] [facility] [address] [place] [address] Care Team Providers Care Emissions Technician Name Role Phone Carlos Cole MD Primary Care Provider Ke Owen [phone] REASON FOR VISIT screening Encounters Encounter Location Date Provider Diagnosis [facility] Outpatient [address] [place], [place] [phone] 10/11/2024 Ke Knowles Colon cancer scree mitch [...] Name:Ke Knowles , 05/14/2025 04:00:00 PM, [address], [address], [place], [address], Progress Notes * ROB BROOKE MDOB:1980 (44 yo M)Acc No.[id number]:10/11/2024 COLON WITH MAC Patient:?ROB BROOKE Provider:?Ke Knowles MD :1980???Age:44 Y???Sex:Male Jorgito e:10/11/2024 Address:[address] [place] [address] [phone] Pcp:Carlos Cole MD Subjective: * Chief Complaints: * ???1. Screening. * Medical History:? Objective: * Vitals:? Assessment: * Assessment: 1.?Colon cancer screening - Z12.11 (Primary)???2.?Family history of colon cancer - Z80.0???3.?Colon polyps - K63.5???4.?Other hemorrhoids - K64.8??? Plan: * Treatment: * Procedure Codes:?54988 LESIO N REMOVAL COLONOSCOPY, Modifiers: PT * * The named appointment provid er may or may not be the originator of this progress note, and it is not deemed complete until electronically signed by the appointment provider. Sign off status: Pending * Provider:?Ke Knowles MD Date:? 025 Generated for Diana dupont/Tiera/eTransmitting on:?12/04/2024 11:27 AM EDT
[2024-12-04 11:37] LABS: Alanine Aminotransferase 135 U/L (0-40); Albumin Level 4.6 g/dL (3.5-5.0); Alkaline Phosphatase 80 U/L (39-117); Anion Gap 11 (12-20); Aspartate Amino Transferase 86 U/L (5-37); Bilirubin Total 1.2 mg/dL (0.0-1.0); Blood Urea Nitrogen 17 mg/dL (9-16); C Reactive Protein 0.26 mg/dL (< or = 0.50); Calcium 9.9 mg/dL (8.4-10.2); Carbon Dioxide 28 mmol/L (22-29); Chloride 107 mmol/L (96-108); Estimated Glomerular Filt Rate > 60; Glucose Random 129 mg/dL (60-115); Lactate Dehydrogenase 225 U/L (118-273); Sodium 142 mmol/L (135-145); Total Protein 7.3 g/dL (6.5-8.0)
[2024-12-04 11:39] LABS: Ferritin 199 ng/mL (20-250)
[2024-12-04 11:47] LABS: HBc Num1 0.06 S/CO (0.00-0.79); HBsAGNum1 0.27 S/CO (0.00-0.99); Hepatitis B Core Antibody Nonreactive (Nonreactive); Hepatitis B Surface Antigen Negative (Negative); ~HepC Num1 0.09 S/CO (0.00-0.79); ~Hepatitis B Surface Antibody NONREACTIVE (Nonreactive); ~Hepatitis C Antibody Nonreactive (Nonreactive)
[2024-12-05 09:04] LABS: EBV-NA IgG Index >600.00 U/mL; EBV-VCA IgG Ab >750.00 U/mL; EBV-VCA IgM Ab <36.00 U/mL
[2024-12-05 09:23] LABS: Cytomegalovirus Ab IgG <0.60 U/mL; Cytomegalovirus Ab IgM <30.00 AU/mL
[2024-12-06 10:13] LABS: RPR Rapid Plasma Reagin NON-REACTIVE (NON-REACTIVE)
== END 2024-12-04 10:01 | disposition home or self-care (01) ==
LOC: HO.LAB 10:00
PROVIDERS: PCP Internal Medicine; Visit Provider Internal Medicine
DX: R59.1 Generalized enlarged lymph nodes (principal); R21 Rash and other nonspecific skin eruption; D64.9 Anemia, unspecified
CPT/HCPCS: 36415; 80053; 82728; 83615; 85025; 85652; 86140; 86592; 86644; 86645; 86664; 86665; 86704; 86706; 86803; 87340

== ENCOUNTER 2024-12-12 14:40 | Outpatient (REF) | payer BC, SELFPAY ==
--- NOTE | ~2024-12-12 | US_ITS ---
EXAMINATION: US INGUINAL REGIONS, LIMITED/FOLLOW UP CLINICAL INFORMATION: Swelling. COMPARISON: None available. TECHNIQUE: Real-time ultrasound of the inguinal regions using a linear transducer with grayscale and color Doppler technique. FINDINGS: There are a few scattered prominent less than 1.3 cm lymph nodes in both inguinal regions. No soft tissue mass or fluid collections. US/US pelvic limited IMPRESSION: Prominent, nonspecific lymph nodes. No gross inguinal hernia. Electronically signed by: Cong Cai MD 12/13/2024 08:14 AM EDT
== END 2024-12-12 14:41 | disposition home or self-care (01) ==
LOC: HO.HMGCX 14:40
PROVIDERS: PCP Internal Medicine; Visit Provider Physician Assistant Medical
DX: R59.1 Generalized enlarged lymph nodes (principal)
CPT/HCPCS: 76857

== ENCOUNTER → 2024-12-12 14:42 | Outpatient (BNV) | payer BC, SELFPAY | PROVIDERS: PCP Internal Medicine; Visit Provider Radiology Diagnostic Radiology | DX: R59.1 Generalized enlarged lymph nodes (principal) | CPT/HCPCS: 76857 ==

== ENCOUNTER 2024-12-17 09:42 | Outpatient (AMB) | payer BC, SELFPAY ==
[2024-12-17 09:44] VITALS: BP 142/92; PULSE 87; O2SAT 98; BMI 31.9
--- NOTE | 2024-12-17 09:44 | MHC.PC.OV ---
Vital Signs 12/17/24 09:44 Height 5 ft 10 in Weight 222 lb BMI 31.9 BP 142/92 H Blood Pressure Location Lt brachial Position Sitting Pulse 87 Pulse Source Pulse Oximeter Pulse Oximetry (%) 98 Oxygen Delivery Method Room Air Intake Visit Reasons: Armpit pain Allergies No Known Allergies Allergy (Verified 12/17/24 09:45) Medication List - Last Reconciled 12/17/24 by Carlos Cole MD amlodipine 5 mg PO DAILY blood pressure monitor As directed ketoconazole 2% 1 appl topical DAILY ketoconazole 2% 1 appl topical DAILY lisinopril 40 mg PO DAILY omeprazole 40 mg PO QAM Tobacco use date assessed: 12/17/24 Dental Screening Dental Screen Date: 12/02/24 [facility] Medical History (Updated 12/17/24 @ 10:22 by Carlos Cole MD) Generalized enlarged lymph nodes NAFLD (nonalcoholic fatty liver disease) Murmur HTN (hypertension) PVD (peripheral vascular disease) Elevated LFTs Decreased hearing of right ear Right otitis media Benign essential hypertension Right hand pain Screening for hyperlipidemia History of intravenous drug abuse Irritable bowel disease Tobacco abuse GERD (gastroesophageal reflux disease) Obesity (BMI 30-39.9) Surgical History (Updated 12/05/24 @ 07:49 by Hortencia Jeffries) History of esophagogastroduodenoscopy (EGD) History of colonoscopy (~10/12/24) Family History Mother Cancer Colon cancer Scleroderma Father High blood pressure Other Substance abuse Social History Household Members: Spouse Housing: House Are you a primary medicare sales executive to a significant other at home: No Do you presently have visiting nurse or other home services: No Alcohol intake: current Alcohol intake frequency: a few times a month Comment: once a month 6 pack Patient Tobacco Use Status: Current everyday Tobacco user Tobacco use type: Cigarette Cigarette Packs Per Day: 1 Cigarettes Per Day: 15 Years Smoked: 25 Packs Per Year: 25 Packs per year/per ci.75 e-Cigarette/Vaping Use: Never Used Second Hand Smoke Exposure: Yes service: No Current occupational status: employed Current occupational exposures/hazards: No Cognitive needs: No Hearing needs: No Vision needs: Yes (glasses) Questionnaire PHQ-9 Over the last 2 weeks, how often have you been bothered by any of the following problems? 1. Little interest or pleasure in doing things: nearly every day Source: Developed by Drs. Ke Navarro, Keisha Miranda, Anthony Washington and colleagues, with an educational keisha from [employer]. Thrive Questionnaire Date Thrive assessed: 10/07/24 I am a: Patient What is your living situation today?: I have a steady place to live Within the past 12 months, did the food you bought not last and you didn't have the money to get more?: Never true Within the past 12 months, did you worry whether your food would run out before you got money to buy more?: Never true Do you have trouble paying for medicines?: No Do you have trouble getting transportation to medical appointments?: No Do you have trouble paying your heating and electricity bill?: No Do you have trouble taking care of your child, family member or friend?: No Do you have trouble with day-to-day activities such as bathing, preparing meals, shopping, managing finances, etc.?: No Are you currently unemployed and looking for a job?: No Are you interested in more education?: No Please select the resources that you would like help with: None Currently or been in a relationship where the following occur: No concerns reported THRIVE Score: 0 ÁNGELA-7 AMB Questionnaire ÁNGELA-7 Date ÁNGELA - 7 assessed: 12/02/24 Source: Developed by Drs. Ke Navarro, Keisha Miranda, Anthony Washington and colleagues, with an educational keisha from [employer]. Physical exam (Primary Care) Vital Signs: Last Vital Signs Pulse 87 12/17/24 09:44 BP 142/92 H 12/17/24 09:44 Pulse Ox 98 12/17/24 09:44 Oxygen Delivery Method Room Air 12/17/24 09:44 BMI result Body Mass Index 31.9 Tobacco/Smoking Status: Tobacco use Status Tobacco use date assessed 12/17/24 12/17/24 09:46 Patient Tobacco Use Status Current everyday Tobacco 12/17/24 09:46 Tobacco use type Cigarette 12/17/24 09:46 e-Cigarette/Vaping Use Never Used 12/17/24 09:46 Thrive Assessment: Date of Thrive Assessment Date Thrive assessed 10/07/24 12/17/24 09:46 Currently or been in a relationship where the following occur: No concerns reported Const General: alert; No acute distress Eyes Conjunctivae: conjunctivae normal Chest Chest/axillae images: 1. Point Tenderness on palpation as well as on patient is elevating the left arm Resp Auscultation: clear to auscultation bilaterally Cardio Rate: regular rate Rhythm: regular rhythm GI Inspection: Yes normal to inspection Other: No specific scrotal pain noted. Skin Other: Noted multiple areas of the left shoulder right shoulder neck chest having macular rash with scaliness Extrem General: Yes normal to inspection and No edema Coding Level of Care Code Est Pt Level 4 (00496) Diagnoses Left-sided chest pain R07.9 Scrotal pain N50.82 Left axillary pain M79.622 Tinea corporis B35.4 Assessment & Plan Assessment & Plan (1) Left-sided chest pain: Code(s): R07.9 - Chest pain, unspecified Category: Medical (2) Scrotal pain: Code(s): N50.82 - Scrotal pain Category: Medical (3) Left axillary pain: Code(s): M79.622 - Pain in left upper arm Category: Medical (4) Tinea corporis: Code(s): B35.4 - Tinea corporis Category: Medical Plan History of Present Illness The patient is a 44-year-old male presenting with musculoskeletal pain in the left armpit and groin pain. The left armpit pain began after an initial sensation of discomfort and has progressively worsened. 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 Despite various consultations, including urgent care and primary care evaluations, the pain's etiology remains unclear. An ultrasound conducted previously yielded nonspecific results, with slightly enlarged lymph nodes in the groin noted. The groin pain is described as a dull, radiating pain devoid of associated mass or swelling, often worsening at night while the patient is at rest. There is no notable mass upon self-examination in the testicular region. Further, there is a history of ringworm with current rashes on the trunk that exacerbate with heat exposure. Health Maintenance - Colonoscopy: Last performed September 2024. - Liver function monitoring: Ongoing due to hepatic steatosis. - Lifestyle discussions: Addressed dietary habits with implications for hepatic steatosis. Social History - Tobacco use: The patient is a smoker. - Occupation: Works in [employer]. 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 - Alcohol use: Limited to approximately five beers in the current year. - Lifestyle: Reports challenges in maintaining a healthy diet due to time and financial constraints. Review of Systems - Musculoskeletal: Reports persistent left armpit pain, worsened with movement; groin pain, described as dull and throbbing. - Skin: Reports a history of ringworm and current skin rashes, exacerbated by sweating. - Genitourinary: Denies urinary problems. - Lymphatic: Reports enlarged lymph nodes in the groin, not specifically causing concern per prior assessments. - Respiratory: Denies shortness of breath or respiratory issues. Physical Exam - Integumentary- Noted rashes consistent with possible ringworm, particularly on trunk. - Musculoskeletal- Pain elicited on movement indicating possible muscular involvement in left armpit. Results - Labs: Blood count normal, electrolytes within normal limits; increased liver enzymes consistent with hepatic steatosis. - Ultrasound: Previous exams revealed nonspecific findings with slightly swollen groin lymph nodes. Plan To address the patient's primary concerns of persistent left armpit pain and groin pain, a chest x-ray will be performed to eliminate pulmonary causes of musculoskeletal discomfort. An ultrasound of the inguinal and testicular area will be scheduled to investigate any potential underlying pathology like cysts. Topical antifungal treatment will be recommended for skin rashes suspecting ringworm. Additionally, conservative management for musculoskeletal pain is advised, emphasizing rest and symptomatic relief. A follow-up will be planned to review diagnostic findings and further strategize treatment. Patient was informed and verbally consented to the use of an ambient scribe for clinic note documentation during this visit. Discussion Notes During the consultation, I discussed the potential musculoskeletal origin of the patient's symptoms, considering mechanical factors and ruling out significant pathologies through imaging. The importance of obtaining an x-ray and ultrasound was highlighted to ensure accurate diagnosis and alleviate concerns. The patient was informed about the diagnostic utility of scheduled imaging tests, and the plan for topical treatment for the rash was reviewed. Dietary factors contributing to hepatic steatosis were acknowledged, with emphasis placed on reducing intake of processed foods. Regular follow-up was encouraged for ongoing reevaluation. Patient Instructions - Get a chest x-ray at the [facility] or [facility]. - Schedule an ultrasound for the groin and testicular area. - Use the prescribed cream for skin rashes as directed. - Avoid strenuous activities that could worsen musculoskeletal pain. - Maintain a balanced diet, focusing on reducing processed foods. - Report any changes in symptoms or worsening of the condition. Orders: Orders XR chest 2V Today R07.9 - Chest pain, unspecified US Extremity Nonvas Limited LT Today M79.622 - Pain in left upper arm US scrotum Today N50.82 - Scrotal pain Medications: New ketoconazole 2% 1 appl topical DAILY 60 grams 0RF Discontinued doxycycline hyclate Discontinued Reason: Patient Completed Course 100 mg PO BID 7 days 14 caps 0RF naproxen Discontinued Reason: Doctor's Order 500 mg PO BID 30 days 60 tabs 3RF S93.409A - Sprain of unspecified ligament of unspecified ankle, initial encounter
--- OUTSIDE RECORDS SUMMARY | 2024-12-17 10:46 | XMS_ITS ---
Author Organization [facility] Address [address] [facility] [address] [place] [address] Care Team Providers Care Gas Attendant Name Role Phone Carlos Cole MD Primary Care Provider Ke Owen [phone] REASON FOR VISIT screening Encounters Encounter Location Date Provider [place] [facility] [place] [address] [place], [place] [phone] 10/11/2024 Ke Knowles Colon cancer scree mitch [...] Name:Ke Knowles , 05/14/2025 04:00:00 PM, [address], [address], [place], [address], Progress Notes * ROB BROOKE MDOB:1980 (44 yo M)Acc No.[id number]:10/11/2024 COLON WITH MAC Patient:?ROB BROOKE Provider:?Ke Knowles MD :1980???Age:44 Y???Sex:Male Jorgito e:10/11/2024 Address:[address] [place] [address] [id number] Pcp:Carlos Cole MD Subjective: * Chief Complaints: * ???1. Screening. * Medical History:? Objective: * Vitals:? Assessment: * Assessment: 1.?Colon cancer screening - Z12.11 (Primary)???2.?Family history of colon cancer - Z80.0???3.?Colon polyps - K63.5???4.?Other hemorrhoids - K64.8??? Plan: * Treatment: * Procedure Codes:?59096 LESIO N REMOVAL COLONOSCOPY, Modifiers: PT * * The named appointment provid er may or may not be the originator of this progress note, and it is not deemed complete until electronically signed by the appointment provider. Sign off status: Pending * Provider:?Ke Knowles MD Date:? 025 Generated for Diana dupont/Tiera/eTransmitting on:?12/17/2024 10:46 AM EDT
--- OUTSIDE RECORDS SUMMARY | 2024-12-17 10:47 | XMS_ITS ---
Author Organization [facility] Address [address] [place] [address] Care Team Providers Care Harbour Master Name Role Phone Carlos Cole MD Primary Care Provider Ke Owen [phone] Encounters Encounter Location Date Provider Diagnosis [facility] [address] [place] [address] 04/03/2024 Ke Knowles Plan Of Treatment Next Appt Details Provider Name:Ke Knowles , 05/14/2025 04:00:00 PM, [address], [address], [place], [address], Progress Notes * ROB BROOKE MDOB:1980 (43 yo M)Acc No.[id number]:04/03/2024 Patient:?ROB BROOKE :1980???Age:43 Y???Sex:Male Address:[address] [place] [address], [address] * true * Date:? Generated for Aartii cresencio/Tiera/eTransmitting on:?12/17/2024 10:46 AM EDT
--- OUTSIDE RECORDS SUMMARY | 2024-12-17 10:47 | XMS_ITS ---
Author Organization [facility] Address [address] [place] [address] Care Team Providers Care Stonework Supervisor Name Role Phone Carlos Cole MD Primary Care Provider Ke Owen Unavailable [phone] Allergies No Known Allergies REASON FOR VISIT [...] Status Risk Notes Problem Gastroesophageal reflux disease ([id number]) Chronic GERD (K21.9) Active confirmed Vital Signs Temperature 98.4 degrees Fahrenheit 06/12/20 24 Blood pressure systolic 000 mm Hg 06/12/20 24 Blood pressure diastolic 00 mm Hg 024 Height 70 in 06/12/2024 Weight 220 lbs 06/12/2024 BMI 31.56 kg/m2 06/12/2024 Encounters Encounter Location Date Provider Diagnosis [facility] [address] [place] [address] 06/12/2024 Ke Knowles Family history of colon [...] show it to his and his son's financial analysis advisor. We reviewed that gene is fairly common [...] he can decrease the omeprazole to the zxqp-ftn-srdqbwu 20 mg dose as long as it [...] show it to his and his son's financial analysis advisor. We reviewed that gene is fairly common [...] he can decrease the omeprazole to the lesw-iok-xnxzwpn 20 mg dose as long as it [...] show it to his and his son's financial analysis advisor. We reviewed that gene is fairly common [...] he can decrease the omeprazole to the lrcs-kvb-iwtfztr 20 mg dose as long as it [...] show it to his and his son's financial analysis advisor. We reviewed that gene is fairly common [...] he can decrease the omeprazole to the ghen-nsn-cllecja 20 mg dose as long as it [...] Provider Name:Ke Knowles , 05/14/2025 04:00:00 PM, [address] [place] [address], [address], [place], [address], Progress Notes * ROB BROOKE MDOB:1980 (43 yo M)Acc No.[id number]:06/12/2024 Progress Notes Patient:?ROB BROOKE Provider:?Ke Knowles MD :1980???Age:43 Y???Sex:Male Jorgito e:06/12/2024 Address:[address] [place], [place] [id number] Pcp:Carlos Cole MD Subjective: * Chief Complaints: [...] show it to his and his son's financial analysis advisor. We reviewed that gene is fairly common [...] he can decrease the omeprazole to the vtkd-wpv-mzyxrsz 20 mg dose as long as it [...] Pt sc rn tbco and id as [id number] BP SCR NOT PRFRM REC REASON NOS * Preventive Medicine:? ??Counseling:?Care goal follow-up plan:?Above Normal BMI Follow-up?Giving encouragement to exercise,?BMI management provided?Yes.? * Follow Up:?prn * * Sign off status: Completed true * Provider:?Ke Knowles MD Date:? 024 Generated for Diana cresencio/Tiera/eTransmitting on:?12/17/2024 10:46 AM EDT History and Physical Notes * [...] He does have a physical job in [employer] and does not have a particularly healthy [...]
--- OUTSIDE RECORDS SUMMARY | 2024-12-17 10:47 | XMS_ITS | Patient Health Record ---
Author Organization [facility] Address [address] [place] [address] Care Team Providers Care Machine Plaster Mixer Name Role Phone Carlos Cole MD Primary Care Provider Ke Owen Unavailable [phone] Allergies No Known Allergies Results Component Value Reference Range Notes DNA Analysis Hemochromatosis Reviewed date:06/12/2024 04:47:19 PM Interpretation: Performing Lab:[facility], [address] [place] [address] Notes/Report: DNA Analysis Hemochromatosis See Below RESULT: [...] reviewed by Petrona Syed, Ph.D., [facility]. DETAILED ASSAY INFORMATION: Hereditary hemochromatosis (HH) [...] variants in the HFE gene, C282Y (NM 294277.2: c.845G>A, p.Zao516Gtz) and H63D (NM 774447.2: c.187C>G, p.Uup41Dyv), that are commonly associated with HH. These [...] Health care providers, please contact your local [facility] genetic counselor or call [phone] ) for assistance with the interpretation of these results. This test was developed and its analytical performance characteristics have been determined by [facility]. It has not been cleared or approved by FDA. This assay has been validated pursuant to the CLIA regulations and is used for clinical purposes. For more information, please refer to http://education.[employer].com/faq/he mochromatosis. (This link is being provided for informational/educatio nal purposes only.) A portion of the testing was performed at [facility]. Reviewed and signed by Laboratory results and submitted clinical information reviewed by Petrona Syed, Ph.D., HCLD, Signed on 03/23/2024 at 23:28 THIS TEST WAS PERFORMED AT: [facility] [address] [place] [address] FABIAN VELÁSQUEZ MD,PHD,BRIANNA Comprehensive Met. Panel Reviewed date:03/21/2024 08:35:24 PM Interpretation: Performing Lab:[facility], [address] [place] [address] Notes/Report: Sodium 142 135-145 mmol/L Potassium 4.2 3.3-5.1 mmol/L Slight Hemoly sis Chloride 106 96-108 mmol/L Carbon Dioxide 27 22-29 mmol/L Anion Gap 13 12-20 Blood Urea Nitrogen 17 9-16 mg/dL Creatinine 0.85 0.5-1.4 mg/dL Estimated Glomerular Filt Rate > 60 NOTE: For -Faroese individuals, multiply the result by 1.210. Chronic [...] PROFILE Reviewed date:03/07/2024 07:41:40 PM Interpretation: Performing Lab:[facility], [address] [place] [address] Notes/Report: Iron 183 45-160 mcg/dL Total Iron Binding Capacity 348 228-428 mcg/dL Percent Iron Saturation 53 15-50 % Unsaturated Iron Binding 165 Ferritin Reviewed date:03/07/2024 07:41:34 PM Interpretation: Performing Lab:[facility], [address] [place] [address] Notes/Report: Ferritin 214 20-250 ng/mL Lipid Panel Reviewed date:03/08/2024 07:23:01 PM Interpretation: Performing Lab:[facility], [address] [place] [address] Notes/Report: Triglycerides 79 <150 mg/dL Desirable Triglyceride: [...] Ceruloplasmin Reviewed date:03/15/2024 11:34:43 PM Interpretation: Performing Lab:[facility], [address] [place] [address] Notes/Report: Ceruloplasmin 23 14-30 mg/dL THIS TEST WAS PERFORMED AT: [facility] [address] [place] [address] ESPERANZA FORBES MD Alpha 1 Anti-trypsin Reviewed date:03/15/2024 11:34:52 PM Interpretation: Performing Lab:[facility], [address] [place] [address] Notes/Report: Alpha 1 Anti-trypsin 134 83-199 mg/dL THIS TEST WAS PERFORMED AT: [facility] [address] [place] [address] ESPERANZA FORBES MD Liver Fibrosis Pnl Reviewed date:03/15/2024 11:35:10 PM Interpretation: Performing Lab:[facility], [address] [place] [phone] Notes/Report: Liver Fibrosis Score 0.72 Liver Fibrosis [...] a>0.62 and a<=1.00 : A3 (severe activity) NOX-Qdssy-6-Macroglobuli n 348 106-279 mg/dL FIB-Haptoglobin 76 43-212 mg/dL FIB-Apolipoprotein A1 141 94-176 mg/dL FIB-Total Bilirubin 1.7 0.2-1.2 mg/dL FIB-GGT 28 3-95 U/L FIB-ALT 75 9-46 U/L Reference ID [id number] Footnote SEE NOTE The reliability of results is dependent on compliance with the preanalytical and analytical conditions recommended by [employer]. The tests have to be deferred for: [...] The performance characteristics have been determined by [facility]. It has not been cleared or approved by the U.S. Food and Drug Administration. Performance characteristics refer to the analytical performance of the test. [employer], [facility], the associated logo, [employer] and all associated [facility] mcclendon are the registered trademarks of [facility]. All third constitution party mcclendon - (R) and (TM) - are the property of their respective owners. (C) 2047-3697 [employer]. All rights reserved. THIS TEST WAS PERFORMED AT: [facility] [address] [place] [address] FABIAN VELÁSQUEZ MD,PHD,BRIANNA CARLOS Reflex Titer and Pattern Reviewed date:03/13/2024 11:20:27 PM Interpretation: Performing Lab:[address] [address] Notes/Report: Anti Nuclear Antibody Screen NEGATIVE NEGATIVE [...] Negative International Consensus on CARLOS Patterns (https://doi.org/10.15 15/knlt-3686-3896) For additional information, please refer to http://education.[facility].[employer]well/faq/FA Q177 (This link is being provided for informational/ educational purposes only.) THIS TEST WAS PERFORMED AT: [facility] [address] [place] [address] ESPERANZA FORBES MD Anti Nuclear Antibody Titer TNP Anti Nuclear Antibody Pattern TNP CARLOS Titer 2 TNP CARLOS Pattern 2 TNP CARLOS Titer 3 TNP CARLOS Pattern 3 TNP Mitochondrial Antibody Reviewed date:03/15/2024 11:34:26 PM Interpretation: Performing Lab:[address] [address] Notes/Report: Mitochondrial Antibodies NEGATIVE NEGATIVE THIS TEST WAS PERFORMED AT: [facility] [address] [place] [address] ESPERANZA FORBES MD Mitochondrial Ab Titer TNP Smooth Muscle Antibody Reviewed date:03/15/2024 11:34:34 PM Interpretation: Performing Lab:[facility] [address] [address] Notes/Report: Smooth Muscle Antibody <20 <20 U [...] type 1. THIS TEST WAS PERFORMED AT: [facility] [address] CARROL MCMILLAN MD,PHD Hepatitis A,B,C Profile Reviewed date:03/09/2024 02:51:02 PM Interpretation: Performing Lab:[address] [address] Notes/Report: Hepatitis A Antibody IgM Nonreactive Nonreactive [...] A1c Reviewed date:03/07/2024 07:41:13 PM Interpretation: Performing Lab:[address] [address] Notes/Report: Hemoglobin A1c % 5.1 <6.0 % [...] average glucose, using the formula of the V9R-Orimbgy Average Glucose study (ADAG), Diabetes Care, Vol.31,#8, Mar. 2007 Liver Panel Reviewed date:10/11/2024 05:27:38 PM Interpretation: Performing Lab:[address] [address] Notes/Report: Bilirubin Total 1.6 0.0-1.0 mg/dL Bilirubin Direct 0.5 0.0-0.5 mg/dL Aspartate Amino Transferase 58 5-37 U/L Alanine Aminotransferase 128 0-40 U/L Total Protein 8.0 6.5-8.0 g/dL Albumin Level 4.8 3.5-5.0 g/dL Alkaline Phosphatase 77 39-117 U/L Drug Screen Urine Reviewed date:10/11/2024 05:17:48 PM Interpretation: Performing Lab:[facility], [address] [place] [address] Notes/Report: Opiate Screen Urine Not Detected Not [...] not be used for non-medical purposes. Pathology Reviewed date:12/04/2024 04:29:09 PM Interpretation: Performing Lab:[facility], [address] [place] [address] Notes/Report: Name: Rob Carreon Age/Sex: 44/M : 1980 Unit#: [id number] Attend Dr: Ke Knowles MD Re10/11/24 Status: [facility] Location: [facility] Disch: SPEC : [id number] RECD: 10/11/24 STATUS: RACHAEL PAGE NUM: [id number] NICOLE: 10/11/24-[address] [facility] [address]: Ke Knowles MD ENTERED: 10/11/24 SP TYPE: Surgical OTHR DR: Carlos Cole [...] microscopic examination, 1 piece in cassette A. ([facility]) Copies To: Carlos Cole MD [facility] [address] [place], [place] [id number] Ke Knowles MD [facility] [address] [place] [address] Signed (signature on file) Wendy Mo MD 10/14/24 1309 END OF REPORT Complete Blood Count Auto Di ff Reviewed date:12/04/2024 04:22:16 PM Interpretation: Performing Lab:[facility], [address] [place] [address] Notes/Report: White Blood Count 6.2 4.8-10.8 X10*3/uL [...] 0.000 0.0-0.012 X10*3/uL Erythrocyte Sedimentation Ra te Reviewed date:12/04/2024 12:42:53 PM Interpretation: Performing Lab:[facility], [address] [place] [phone] Notes/Report: Erythrocyte Sedimentation Rate 6 0-15 MM/HR Patients with polycythemia and many hemoglobin abnormalities may have depressed sed rates whereas patients with anemia may have elevated sed rates. Comprehensive Met. Panel (No t yet reviewed by provider) Interpretation: Performing Lab:[facility], [address] [place] [address] Notes/Report: Sodium 142 135-145 mmol/L Potassium 4.0 3.3-5.1 mmol/L Chloride 107 96-108 mmol/L Carbon Dioxide 28 22-29 mmol/L Anion Gap 11 12-20 Blood Urea Nitrogen 17 9-16 mg/dL Creatinine 0.80 0.5-1.4 mg/dL Estimated Glomerular Filt Rate > 60 Chronic Kidney Disease: Estimated GFR < 60 mL/min/1.73m2 Severe Kidney Disease: Estimated GFR < 15 mL/min/1.73m2 Glucose Random 129 60-115 mg/dL Calcium 9.9 8.4-10.2 mg/dL Bilirubin Total 1.2 0.0-1.0 mg/dL Aspartate Amino Transferase 86 5-37 U/L Alanine Aminotransferase 135 0-40 U/L Total Protein 7.3 6.5-8.0 g/dL Albumin Level 4.6 3.5-5.0 g/dL Alkaline Phosphatase 80 39-117 U/L Ferritin Reviewed date:12/04/2024 04:21:53 PM Interpretation: Performing Lab:[facility], [address] [place] [phone] Notes/Report: Ferritin 199 20-250 ng/mL Lactate Dehydrogenase Reviewed date:12/04/2024 04:21:20 PM Interpretation: Performing Lab:[facility], [address] [place] [address] Notes/Report: Lactate Dehydrogenase 225 118-273 U/L C Reactive Protein Reviewed date:12/04/2024 04:21:07 PM Interpretation: Performing Lab:[facility], [address] [place] [phone] Notes/Report: C Reactive Protein 0.26 < or = 0.50 mg/dL Brittany-Lundberg Virus Profile Reviewed date:12/06/2024 01:51:31 PM Interpretation: Performing Lab:[facility], [address] [place] [address] Notes/Report: EBV-VCA IgG Ab >750.00 U/mL Interpretation ---- <18.00 Negative 18.00-21.99 Equivocal >21.99 Positive EBV-VCA IgM Ab <36.00 U/mL Interpretation ---- <36.00 Negative 36.00-43.99 Equivocal >43.99 Positive EBV-NA IgG Index >600.00 U/mL Interpretation ---- <18.00 Negative 18.00-21.99 Equivocal >21.99 Positive EBV-Interpretation SEE NOTE Suggestive of a past Brittany-Lundberg virus infection. In infants, a similar pattern may occur as a result of passive maternal transfer of antibody. THIS TEST WAS PERFORMED AT: [facility] [address] [address] ESPERANZA FORBES MD Cytomegalovirus Ab (IgG, IgM ) Reviewed date:12/06/2024 01:51:56 PM Interpretation: Performing Lab:[address] [address] Notes/Report: Cytomegalovirus Ab IgG <0.60 U/mL Interpretation ----- <0.60 Negative 0.60-0.69 Equivocal > or = 0.70 Positive A positive result indicates that the patient has antibody to CMV. It does not differentiate between an active or past infection. Cytomegalovirus Ab IgM <30.00 AU/mL Interpretation ----- <30.00 No Antibody Detected 30.00-34.99 Equivocal > or = 35.00 Antibody Detected Results from any one IgM assay should not be used as a sole determinant of a current or recent infection. Because an IgM test can yield false positive results and low level IgM antibody may persist for more than 12 months post infection, reliance on a single test result could be misleading. Acute infection is best diagnosed by demonstrating the conversion of IgG from negative to positive. If an acute infection is suspected, consider obtaining a new specimen and submit for both IgG and IgM testing in two or more weeks. THIS TEST WAS PERFORMED AT: [facility] [address] [place] [address] ESPERANZA FORBES MD Hepatitis B Profile Reviewed date:12/04/2024 04:20:57 PM Interpretation: Performing Lab:[address] [address] Notes/Report: Hepatitis B Surface Antibody NONREACTIVE Nonreactive Nonreactive: < 8.00 mIU/mL Hepatitis B Core Antibody Nonreactive Nonreactive Hepatitis B Surface Antigen Negative Negative RPR Monitor reflex titer Reviewed date:12/06/2024 01:50:45 PM Interpretation: Performing Lab:[address] [address] Notes/Report: RPR Rapid Plasma Reagin NON-REACTIVE NON-REACTIVE THIS TEST WAS PERFORMED AT: [facility] [address] [place] [address] ESPERANZA FORBES MD Rapid Plasma Reagin Ab Titer TNP Hepatitis C Antibody Reflex Reviewed date:12/04/2024 04:19:07 PM Interpretation: Performing Lab:[facility], [address] [facility], [place] [address] Notes/Report: Hepatitis C Antibody Nonreactive Nonreactive Antibodies to HCV not detected; does not exclude early acute HCV infection. Reason For Referral Referring Provider First Name Carlos Referring Provider Last Name Po Referring Provider Speciality Internal M edicine Referred Organization [facility] Referred Provider Ke Knowles Referred Address [address] [address],[place], [place],[address], Referred Provider Specialty Gastroentero logy General Notes Perry Baronn 2024 10:22:28 AM >requested an [facility] referral for visit with Dr. Knowles on [phone] Dr cole Referral Priority Routine Medications Medication [...] Problem Status W/U Status Risk Notes Problem 162668581 Encounter for screening for malignant neoplasm of colon (Z12.11) Active confirmed Problem Diarrhea (15551520) Diarrhea (R19.7) Active con firmed Problem Nausea and vomiting (68859149) Nausea with vomiting, unspecified (R11.2) Active confirmed Problem Fatty liver (758167920) Fatty liver (K76.0) Active confirmed Problem 588138361 Family history o f colon cancer (Z80.0) Active confirmed Problem 633644150 Abnormal upper gastrointestinal barium series (R93.3) Active confirmed Problem Iron excess (67408991) Iron excess (E83.19) Active confirmed Problem Left upper quadrant pain (188621195) Abdominal pain, LUQ (R10.12) Active confirmed Problem 083021235 Abnormal CT scan , stomach (R93.3) Active confirmed Problem Odynophagia (35265600) Odynophagia (R13.10) Active confirmed Problem 85643947 Diarrhea, unspecified type (R19.7) Active confirmed Problem Elevated liver enzymes level (099095547) Elevated liver function tests (R94.5) Active confirmed Problem 406391149 Non-intractable vomiting without nausea, unspecified vomiting type (R11.11) Active confirmed Problem Family history of malignant neoplasm of gastrointestinal tract (631835996) Family history of colon cancer in mother (Z80.0) Active confirmed Problem Splenomegaly (34451527) Splenomegaly (R16.1) Active confirmed Problem Gastroesophageal reflux disease (340940954) Chronic GERD (K21.9) Active confirmed Vital Signs Temperature 98.4 degrees Fahrenheit 06/12/2024 Blood pressure diastolic 00 mm Hg 06/12/2024 Height 70 in 06/12/2024 Blood pressure systolic 000 mm Hg 06/12/2024 Weight 220 lbs 06/12/2024 BMI 31.56 kg/m2 06/12/2024 Encounters Encounter Location Date Provider Diagnosis [facility] [place] [address] [place] [phone] 10/11/2024 Ke Knowles Colon cancer screeni ng Z12.11 ; Family history of colon cancer Z80.0 ; Colon polyps K63.5 and Other hemorrhoids K64.8 [facility] [address] [place] [phone] 01/31/2024 Ke Knowles Fatty liver K76.0 ; Elevated liver function tests R94.5 ; Iron excess E83.19 ; Splenomegaly R16.1 ; Family history of colon cancer in mother Z80.0 and Abdominal pain, LUQ R10.12 [facility] [address] [place] [address] 06/12/2024 Ke Knowles Family history of colon cancer Z80.0 ; Fatty liver K76.0 ; Encounter for screening for malignant neoplasm of colon Z12.11 and Chronic GERD K21.9 [facility] [address] [place] [address] 01/31/2024 Ke Knowles [facility] [address] [place] [address] 03/05/2024 Ke Knowles [facility] [address] [place] [address] 03/18/2024 Ke Knowles [facility] [address] [place] [address] 03/21/2024 Ke Knowles Odynophagia R13.10 [facility] [address] [place] [address] 04/03/2024 Ke Knowles Assessments Encounter Date Diagnosis [...] show it to his and his son's notch grinder. We reviewed that gene is fairly common [...] he can decrease the omeprazole to the hjaz-uyf-dlriitb 20 mg dose as long as it [...] show it to his and his son's notch grinder. We reviewed that gene is fairly common [...] he can decrease the omeprazole to the phvi-lpj-fwggaqq 20 mg dose as long as it [...] show it to his and his son's notch grinder. We reviewed that gene is fairly common [...] he can decrease the omeprazole to the sxmo-rvt-mujfegs 20 mg dose as long as it [...] show it to his and his son's notch grinder. We reviewed that gene is fairly common [...] he can decrease the omeprazole to the fiqq-uvj-olpdkkl 20 mg dose as long as it [...] RFLX PCR 09/29/2020 Prothrombin Time INR 01/31/2024 Comprehensive Met. Panel 12/04/2024 Ferritin 01/31/2024 Lipid Panel 01/31/2024 Ceruloplasmin 01/31/2024 Alpha 1 Anti-trypsin 01/31/2024 Liver Fibrosis Pnl 01/31/2024 Mitochondrial Antibody 01/31/2024 Smooth Muscle Antibody 01/31/2024 Hepatitis A,B,C Profile 01/31/2024 US abdomen comp w elastography Hemoglobin A1c 01/31/2024 Future Test Test Name Order Date UPPER GI ENDOSCOPY 02/06/2020 COLONOSCOPY 02/06/2020 COLONOSCOPY 06/12/2024 Next Appt Details Provider Name:Ke Meza Knowles , 05/14/2025 04:00:00 PM, [address] [place] [address], [address], [place], [address], Insurance Providers Payer Name Payer Address Payer Phone Subscriber Number Group Number Insured Name Patient Relationship to Insured Coverage Start Date Coverage End Date O [employer] CLAIMS [address] [place] [address] [phone] [id number] ROB CARREON Self - patient is the insured Medical (General) History Medical History History ICD Code Denies CT,DM,CVA,Lung disease,renal dise ase HTN Discrete episodes of [...]
== END 2024-12-17 11:28 | disposition home or self-care (01) ==
LOC: HO.HMCH 09:43
PROVIDERS: PCP Internal Medicine; Visit Provider Internal Medicine
DX: R07.9 Chest pain, unspecified (principal); N50.82 Scrotal pain; M79.622 Pain in left upper arm; B35.4 Tinea corporis

== ENCOUNTER 2024-12-17 09:42 | Outpatient (REF) | payer BC, SELFPAY ==
--- NOTE | ~2024-12-17 | XR_ITS ---
CLINICAL HISTORY: R07.9 - Chest pain, unspecified 2 view chest x-ray. Comparison: None Findings: Normal lung volumes. Lungs are clear. No pneumothorax or pleural effusion. Heart size normal. No passive venous congestion. No midline shift or tracheal deviation. No acute fracture. Impression: 1. No acute cardiopulmonary disease. This document has been electronically signed by: Jigar Haywood MD on 12/18/2024 08:19:53
== END 2024-12-17 09:43 | disposition home or self-care (01) ==
LOC: HO.XRAY 09:42
PROVIDERS: PCP Internal Medicine; Visit Provider Internal Medicine
DX: R07.9 Chest pain, unspecified (principal)
CPT/HCPCS: 71046

== ENCOUNTER → 2024-12-17 10:33 | Outpatient (BNV) | payer BC, SELFPAY | PROVIDERS: PCP Internal Medicine; Visit Provider Radiology Diagnostic Radiology | DX: R07.9 Chest pain, unspecified (principal) | CPT/HCPCS: 71046 ==

== ENCOUNTER 2024-12-26 13:58 | Outpatient (REF) | payer BC, SELFPAY ==
--- NOTE | ~2024-12-26 | US_ITS ---
EXAMINATION: US EXTREMITY NON-VASCULAR LIMITED LEFT HISTORY: M79.622 - Pain in left upper arm COMPARISON: There are no prior studies for comparison. FINDINGS: Sonographic examination of the left axilla was performed to further evaluate an area of pain. Multiple normal appearing lymph nodes are identified with thin cortices and prominent fatty sachin. No mass or fluid collection is identified. US/US Extremity Nonvas Limited LT IMPRESSION: No sonographic abnormality is seen in the left axilla to correspond to the patient's pain. Electronically signed by: Ke Jarvis MD 12/27/2024 07:36 AM EDT
--- NOTE | ~2024-12-26 | US_ITS ---
EXAMINATION: US SCROTUM HISTORY: N50.82 - Scrotal pain. COMPARISON: There are no prior studies for comparison. FINDINGS: Real-time grayscale ultrasound imaging of the scrotum was performed. RIGHT TESTICLE: The right testis measures 4.2 x 2.0 x 3.1 cm and demonstrates normal homogeneous echotexture. No masses are seen. The right testis demonstrates normal color Doppler flow. RIGHT EPIDIDYMIS: Normal in size, shape, and vascularity. LEFT TESTICLE: The left testis measures 4.1 x 2.0 x 2.6 cm and demonstrates normal homogeneous echotexture. No masses are seen. The left testis demonstrates normal color Doppler flow. LEFT EPIDIDYMIS: Normal in size, shape, and vascularity. VARICOCELE: There are bilateral varicoceles, left greater than right. HYDROCELE: No significant hydrocele is seen. OTHER COMMENTS: None. US/US scrotum IMPRESSION: Bilateral varicoceles, left greater than right. Otherwise unremarkable scrotal ultrasound. Electronically signed by: Ke Jarvis MD 12/26/2024 02:57 PM EDT
--- OUTSIDE RECORDS SUMMARY | 2024-12-26 14:40 | XMS_ITS ---
Author Organization [facility] Address [address] [place] [address] Care Team Providers Care Artificial Pearl Maker Name Role Phone Carlos Cole MD Primary Care Provider Ke Owen [phone] REASON FOR VISIT screening Encounters Encounter Location Date Provider Diagnosis [facility] [address] [place], [place] [phone] 10/11/2024 Ke Knowles Colon cancer scree mitch [...] Name:Ke Knowles , 05/14/2025 04:00:00 PM, [address], [address], [place], [address], Progress Notes * ROB BROOKE MDOB:1980 (44 yo M)Acc No.[id number]:10/11/2024 COLON WITH MAC Patient:?ROB BROOKE Provider:?Ke Knowles MD :1980???Age:44 Y???Sex:Male Jorgito e:10/11/2024 Address:[address] [place] [address] [phone] Pcp:Carlos Cole MD Subjective: * Chief Complaints: * ???1. Screening. * Medical History:? Objective: * Vitals:? Assessment: * Assessment: 1.?Colon cancer screening - Z12.11 (Primary)???2.?Family history of colon cancer - Z80.0???3.?Colon polyps - K63.5???4.?Other hemorrhoids - K64.8??? Plan: * Treatment: * Procedure Codes:?06425 LESIO N REMOVAL COLONOSCOPY, Modifiers: PT * * The named appointment provid er may or may not be the originator of this progress note, and it is not deemed complete until electronically signed by the appointment provider. Sign off status: Pending * Provider:?Ke Knowles MD Date:? 025 Generated for Diana dupont/Tiera/eTransmitting on:?12/26/2024 02:39 PM EDT
--- OUTSIDE RECORDS SUMMARY | 2024-12-26 14:40 | XMS_ITS ---
Author Organization [facility] Address [address] [place] [address] Care Team Providers Care Senior Controls Technician Name Role Phone Carlos Cole MD Primary Care Provider Ke Owen Unavailable [phone] Allergies No Known Allergies REASON FOR VISIT [...] Status Risk Notes Problem Gastroesophageal reflux disease (210426911) Chronic GERD (K21.9) Active confirmed Vital Signs Temperature 98.4 degrees Fahrenheit 06/12/20 24 Blood pressure systolic 000 mm Hg 06/12/20 24 Blood pressure diastolic 00 mm Hg 024 Height 70 in 06/12/2024 Weight 220 lbs 06/12/2024 BMI 31.56 kg/m2 06/12/2024 Encounters Encounter Location Date Provider Diagnosis [facility] [address] [place] [address] 06/12/2024 Ke Knowles Family history of colon [...] show it to his and his son's creel cleaner. We reviewed that gene is fairly common [...] he can decrease the omeprazole to the gfxv-aeg-veqloft 20 mg dose as long as it [...] show it to his and his son's creel cleaner. We reviewed that gene is fairly common [...] he can decrease the omeprazole to the hssr-plu-vydmwlk 20 mg dose as long as it [...] show it to his and his son's creel cleaner. We reviewed that gene is fairly common [...] he can decrease the omeprazole to the vzfe-zsa-vwhotjb 20 mg dose as long as it [...] show it to his and his son's creel cleaner. We reviewed that gene is fairly common [...] he can decrease the omeprazole to the wcoz-drb-fpuuvai 20 mg dose as long as it [...] Provider Name:Ke Knowles , 05/14/2025 04:00:00 PM, [address] [place] [address], [address], [place], [address], Progress Notes * ROB BROOKE MDOB:1980 (43 yo M)Acc No.[id number]:06/12/2024 Progress Notes Patient:?ROB BROOKE Provider:?Ke Knowles MD :1980???Age:43 Y???Sex:Male Jorgito e:06/12/2024 Address:[address] [place], [place] [phone] Pcp:Carlos Cole MD Subjective: * Chief Complaints: [...] show it to his and his son's creel cleaner. We reviewed that gene is fairly common [...] he can decrease the omeprazole to the tlos-qcf-uevtsyd 20 mg dose as long as it [...] Pt sc rn tbco and id as [id number] BP SCR NOT PRFRM REC REASON NOS * Preventive Medicine:? ??Counseling:?Care goal follow-up plan:?Above Normal BMI Follow-up?Giving encouragement to exercise,?BMI management provided?Yes.? * Follow Up:?prn * * Sign off status: Completed true * Provider:?Ke Knowles MD Date:? 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
--- OUTSIDE RECORDS SUMMARY | 2024-12-26 14:40 | XMS_ITS ---
Author Organization [facility] Address [address] [place] [address] Care Team Providers Care Traffic Signal Mechanic Name Role Phone Carlos Cole MD Primary Care Provider Ke Owen [phone] Encounters Encounter Location Date Provider Diagnosis [facility] [address] [place] [address] 04/03/2024 Ke Knowles Plan Of Treatment Next Appt Details Provider Name:Ke Knowles , 05/14/2025 04:00:00 PM, [address], [address], [place], [address], Progress Notes * ROB BROOKE MDOB:1980 (43 yo M)Acc No.[id number]:04/03/2024 Patient:?ROB BROOKE :1980???Age:43 Y???Sex:Male Address:[address] [place] [address], [address] * true * Date:? Generated for Aartii cresencio/Tiera/eTransmitting on:?12/26/2024 02:40 PM EDT
--- OUTSIDE RECORDS SUMMARY | 2024-12-26 14:40 | XMS_ITS | Patient Health Record ---
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 DETAILED ASSAY INFORMATION: Hereditary hemochromatosis (HH) [...] variants in the HFE gene, C282Y (NM 611217.2: c.845G>A, p.Fkf681Ojd) and H63D (NM 594258.2: c.187C>G, p.Edn66Cat), that are commonly associated with HH. These [...] Health care providers, please contact your local [employer]' genetic counselor or call [phone] ( ) for assistance with the interpretation of these results. This test was developed and its analytical performance characteristics have been determined by [employer] [facility]. It has not been cleared or approved by FDA. This assay has been validated pursuant to the CLIA regulations and is used for clinical purposes. For more information, please refer to http://education.[employer].com/faq/he mochromatosis. (This link is being provided for informational/educatio nal purposes only.) A portion of the [place] [facility] Reviewed and signed by Laboratory results and submitted clinical information reviewed by Petrona Syed, Ph.D., HCLD, Signed on 03/23/2024 at 23:28 THIS TEST WAS PERFORMED AT: [employer]/[facility] [address] [place] [address] FABIAN VELÁSQUEZ MD,PHD,BRIANNA Comprehensive Met. Panel Reviewed date:03/21/2024 08:35:24 PM Interpretation: Performing Lab:[facility], [address] [place] [phone] Notes/Report: Sodium 142 135-145 mmol/L Potassium 4.2 3.3-5.1 mmol/L Slight Hemoly sis Chloride 106 96-108 mmol/L Carbon Dioxide 27 22-29 mmol/L Anion Gap 13 12-20 Blood Urea Nitrogen 17 9-16 mg/dL Creatinine 0.85 0.5-1.4 mg/dL Estimated Glomerular Filt Rate > 60 NOTE: For -Prydeinig individuals, multiply the result by 1.210. Chronic [...] PROFILE Reviewed date:03/07/2024 07:41:40 PM Interpretation: Performing Lab:[facility], [address] [place] [address] Notes/Report: Iron 183 45-160 mcg/dL Total Iron Binding Capacity 348 228-428 mcg/dL Percent Iron Saturation 53 15-50 % Unsaturated Iron Binding 165 Ferritin Reviewed date:03/07/2024 07:41:34 PM Interpretation: Performing Lab:[facility], [address] [place] [address] Notes/Report: Ferritin 214 20-250 ng/mL Lipid Panel Reviewed date:03/08/2024 07:23:01 PM Interpretation: Performing Lab:[facility], [address] [place] [phone] Notes/Report: Triglycerides 79 <150 mg/dL Desirable Triglyceride: [...] Ceruloplasmin Reviewed date:03/15/2024 11:34:43 PM Interpretation: Performing Lab:[facility], [address] [place] [phone] Notes/Report: Ceruloplasmin 23 14-30 mg/dL THIS TEST WAS PERFORMED AT: [facility] [address] [place] [phone] ESPERANZA FORBES MD Alpha 1 Anti-trypsin Reviewed date:03/15/2024 11:34:52 PM Interpretation: Performing Lab:[facility], [address] [place] [phone] Notes/Report: Alpha 1 Anti-trypsin 134 83-199 mg/dL THIS TEST WAS PERFORMED AT: [facility] [address] [place] [phone] ESPERANZA FORBES MD Liver Fibrosis Pnl Reviewed date:03/15/2024 11:35:10 PM Interpretation: Performing Lab:[facility], [address] [place] [phone] Notes/Report: Liver Fibrosis Score 0.72 Liver Fibrosis [...] a>0.62 and a<=1.00 : A3 (severe activity) VPO-Gpotn-0-Macroglobuli n 348 106-279 mg/dL FIB-Haptoglobin 76 43-212 mg/dL FIB-Apolipoprotein A1 141 94-176 mg/dL FIB-Total Bilirubin 1.7 0.2-1.2 mg/dL FIB-GGT 28 3-95 U/L FIB-ALT 75 9-46 U/L Reference ID [id number] Footnote SEE NOTE The reliability of results is dependent on compliance with the preanalytical and analytical conditions recommended by [employer]. The tests have to be deferred for: [...] The performance characteristics have been determined by [facility]. It has not been cleared or approved by the U.S. Food and Drug Administration. Performance characteristics refer to the analytical performance of the test. [employer], [employer], the associated logo, [employer] and all associated [employer] mcclendon are the registered trademarks of [employer]. All third democrat mcclendon - (R) and (TM) - are the property of their respective owners. (C) 0931-1290 [employer]. All rights reserved. THIS TEST WAS PERFORMED AT: [employer] [address] [place] [address] FABIAN VELÁSQUEZ MD,PHD,BRIANNA CARLOS Reflex Titer and Pattern Reviewed date:03/13/2024 11:20:27 PM Interpretation: Performing Lab:[address] [address] Notes/Report: Anti Nuclear Antibody Screen NEGATIVE NEGATIVE [...] Negative International Consensus on CARLOS Patterns (https://doi.org/10.15 15/nciz-2847-2890) For additional information, please refer to http://education.[employer].Springbuk/faq/FA Q177 (This link is being provided for informational/ educational purposes only.) THIS TEST WAS PERFORMED AT: [facility] [address] [place] [phone] ESPERANZA FORBES MD Anti Nuclear Antibody Titer TNP Anti Nuclear Antibody Pattern TNP CARLOS Titer 2 TNP CARLOS Pattern 2 TNP CARLOS Titer 3 TNP CARLOS Pattern 3 TNP Mitochondrial Antibody Reviewed date:03/15/2024 11:34:26 PM Interpretation: Performing Lab:[address] [address] Notes/Report: Mitochondrial Antibodies NEGATIVE NEGATIVE THIS TEST WAS PERFORMED AT: [facility] [address] [place] [phone] ESPERANZA FORBES MD Mitochondrial Ab Titer TNP Smooth Muscle Antibody Reviewed date:03/15/2024 11:34:34 PM Interpretation: Performing Lab:[facility] [address] [address] Notes/Report: Smooth Muscle Antibody <20 <20 U [...] type 1. THIS TEST WAS PERFORMED AT: [employer]/[address] [address] CARROL MCMILLAN MD,PHD Hepatitis A,B,C Profile Reviewed date:03/09/2024 02:51:02 PM Interpretation: Performing Lab:[address] [address] Notes/Report: Hepatitis A Antibody IgM Nonreactive Nonreactive [...] A1c Reviewed date:03/07/2024 07:41:13 PM Interpretation: Performing Lab:[address] [address] Notes/Report: Hemoglobin A1c % 5.1 <6.0 % [...] average glucose, using the formula of the A9Q-Oexhxfo Average Glucose study (ADAG), Diabetes Care, Vol.31,#8, Mar. 2007 Liver Panel Reviewed date:10/11/2024 05:27:38 PM Interpretation: Performing Lab:[address] [address] Notes/Report: Bilirubin Total 1.6 0.0-1.0 mg/dL Bilirubin Direct 0.5 0.0-0.5 mg/dL Aspartate Amino Transferase 58 5-37 U/L Alanine Aminotransferase 128 0-40 U/L Total Protein 8.0 6.5-8.0 g/dL Albumin Level 4.8 3.5-5.0 g/dL Alkaline Phosphatase 77 39-117 U/L Drug Screen Urine Reviewed date:10/11/2024 05:17:48 PM Interpretation: Performing Lab:[facility], [address] [place] [phone] Notes/Report: Opiate Screen Urine Not Detected Not [...] Pathology Reviewed date:12/04/2024 04:29:09 PM Interpretation: Performing Lab:[facility], [address] [place] [phone] Notes/Report: Name: Rob Carreon Age/Sex: 44/M : 1980 Unit#: [id number] Attend Dr: Ke Knowles MD Re10/11/24 Status: [facility] Location: [facility] Disch: SPEC : [id number] RECD: 10/11/24 STATUS: RACHAEL PAGE NUM: [id number] NICOLE: 10/11/24-6 [facility] [address]: Ke Knowles MD ENTERED: 10/11/24 SP [...] microscopic examination, 1 piece in cassette A. ([facility]) Copies To: Carlos Cole MD [facility],[place] [address] [place], [place] [id number] Ke Knowles MD [facility] [address] [place] [address] Signed (signature on file) Wendy Mo MD 10/14/24 1309 END OF REPORT Complete Blood Count Auto Di ff Reviewed date:12/04/2024 04:22:16 PM Interpretation: Performing Lab:[facility], [address] [place] [phone] Notes/Report: White Blood Count 6.2 4.8-10.8 X10*3/uL [...] te Reviewed date:12/04/2024 12:42:53 PM Interpretation: Performing Lab:[facility], [address] [place] [phone] Notes/Report: Erythrocyte Sedimentation Rate 6 0-15 MM/HR Patients with polycythemia and many hemoglobin abnormalities may have depressed sed rates whereas patients with anemia may have elevated sed rates. Comprehensive Met. Panel (No t yet reviewed by provider) Interpretation: Performing Lab:[facility], [address] [place] [phone] Notes/Report: Sodium 142 135-145 mmol/L Potassium 4.0 [...] Ferritin Reviewed date:12/04/2024 04:21:53 PM Interpretation: Performing Lab:[facility], [address] [place] [phone] Notes/Report: Ferritin 199 20-250 ng/mL Lactate Dehydrogenase Reviewed date:12/04/2024 04:21:20 PM Interpretation: Performing Lab:[facility], [address] [place] [address] Notes/Report: Lactate Dehydrogenase 225 118-273 U/L C Reactive Protein Reviewed date:12/04/2024 04:21:07 PM Interpretation: Performing Lab:[facility], [address] [place] [phone] Notes/Report: C Reactive Protein 0.26 < or = 0.50 mg/dL Brittany-Lundberg Virus Profile Reviewed date:12/06/2024 01:51:31 PM Interpretation: Performing Lab:[facility], [address] [place] [phone] Notes/Report: EBV-VCA IgG Ab >750.00 U/mL Interpretation [...] of antibody. THIS TEST WAS PERFORMED AT: [facility] [address] [address] ESPERANZA FORBES MD Cytomegalovirus Ab (IgG, IgM ) Reviewed date:12/06/2024 01:51:56 PM Interpretation: Performing Lab:[address] [address] Notes/Report: Cytomegalovirus Ab IgG <0.60 U/mL Interpretation [...] more weeks. THIS TEST WAS PERFORMED AT: [facility] [address] [place] [phone] ESPERANZA FORBES MD Hepatitis B Profile Reviewed date:12/04/2024 04:20:57 PM Interpretation: Performing Lab:[address] [address] Notes/Report: Hepatitis B Surface Antibody NONREACTIVE Nonreactive Nonreactive: < 8.00 mIU/mL Hepatitis B Core Antibody Nonreactive Nonreactive Hepatitis B Surface Antigen Negative Negative RPR Monitor reflex titer Reviewed date:12/06/2024 01:50:45 PM Interpretation: Performing Lab:[address] [address] Notes/Report: RPR Rapid Plasma Reagin NON-REACTIVE NON-REACTIVE THIS TEST WAS PERFORMED AT: [facility] [address] [place] [phone] ESPERANZA FORBES MD Rapid Plasma Reagin Ab Titer TNP Hepatitis C Antibody Reflex Reviewed date:12/04/2024 04:19:07 PM Interpretation: Performing Lab:[facility], [address] [facility], [place] [address] Notes/Report: Hepatitis C Antibody Nonreactive Nonreactive Antibodies to HCV not detected; does not exclude early acute HCV infection. Reason For Referral Referring Provider First Name Carlos Referring Provider Last Name Po Referring Provider Speciality Internal M edicine Referred Organization [facility] Referred Provider Ke Knowles Referred Address [address] [facility] [address],[place], [place],[address], Referred Provider Specialty Gastroentero logy General Notes Perry Baronn 2024 10:22:28 AM >[facility] [place] [facility] for visit with Dr. Knowles on [phone] Dr cole Referral Priority Routine Medications Medication [...] Problem Status W/U Status Risk Notes Problem [id number] Encounter for screening for malignant neoplasm of colon (Z12.11) Active confirmed Problem Diarrhea (28162636) Diarrhea (R19.7) Active con firmed Problem Nausea and vomiting (33590450) Nausea with vomiting, unspecified (R11.2) Active confirmed Problem Fatty liver (245759201) Fatty liver (K76.0) Active confirmed Problem 400607332 Family history o f colon cancer (Z80.0) Active confirmed Problem 761032258 Abnormal upper gastrointestinal barium series (R93.3) Active confirmed Problem Iron excess (09601454) Iron excess (E83.19) Active confirmed Problem Left upper quadrant pain (720021957) Abdominal pain, LUQ (R10.12) Active confirmed Problem 907427051 Abnormal CT scan , stomach (R93.3) Active confirmed Problem Odynophagia (36916477) Odynophagia (R13.10) Active confirmed Problem 98772059 Diarrhea, unspecified type (R19.7) Active confirmed Problem Elevated liver enzymes level (890995391) Elevated liver function tests (R94.5) Active confirmed Problem 433818121 Non-intractable vomiting without nausea, unspecified vomiting type (R11.11) Active confirmed Problem Family history of malignant neoplasm of gastrointestinal tract (131089513) Family history of colon cancer in mother (Z80.0) Active confirmed Problem Splenomegaly (21934593) Splenomegaly (R16.1) Active confirmed Problem Gastroesophageal reflux disease (624833836) Chronic GERD (K21.9) Active confirmed Vital Signs Temperature 98.4 degrees Fahrenheit 06/12/2024 Blood pressure diastolic 00 mm Hg 06/12/2024 Height 70 in 06/12/2024 Blood pressure systolic 000 mm Hg 06/12/2024 Weight 220 lbs 06/12/2024 BMI 31.56 kg/m2 06/12/2024 Encounters Encounter Location Date Provider Diagnosis [facility] [address] [place] [phone] 10/11/2024 Ke Knowles Colon cancer screeni ng Z12.11 ; Family history of colon cancer Z80.0 ; Colon polyps K63.5 and Other hemorrhoids K64.8 [facility] [address] [place] [phone] 01/31/2024 Ke Knowles Fatty liver K76.0 ; Elevated liver function tests R94.5 ; Iron excess E83.19 ; Splenomegaly R16.1 ; Family history of colon cancer in mother Z80.0 and Abdominal pain, LUQ R10.12 [facility] [address] [place] [phone] 06/12/2024 Ke Knowles Family history of colon cancer Z80.0 ; Fatty liver K76.0 ; Encounter for screening for malignant neoplasm of colon Z12.11 and Chronic GERD K21.9 [facility] [address] [place] [address] 01/31/2024 Ke Knowles [facility] [address] [place] [phone] 03/05/2024 Ke Knowles [facility] [address] [place] [address] 03/18/2024 Ke Knowles [facility] [address] [place] [phone] 03/21/2024 Ke Knowles Odynophagia R13.10 [facility] [address] [place] [phone] 04/03/2024 Ke Knowles Assessments Encounter Date Diagnosis [...] show it to his and his son's funding analyst. We reviewed that gene is fairly common [...] he can decrease the omeprazole to the bfbm-tgf-jsrrvhq 20 mg dose as long as it [...] show it to his and his son's funding analyst. We reviewed that gene is fairly common [...] he can decrease the omeprazole to the fxen-thl-eydygot 20 mg dose as long as it [...] again for allowing me to participate in oRb's care. I shall continue to keep you [...] show it to his and his son's funding analyst. We reviewed that gene is fairly common [...] he can decrease the omeprazole to the dqah-art-ystrdvd 20 mg dose as long as it [...] show it to his and his son's funding analyst. We reviewed that gene is fairly common [...] he can decrease the omeprazole to the vhdi-gjf-cytbcxz 20 mg dose as long as it [...] Name:Ke Meza Knowles , 05/14/2025 04:00:00 PM, [address] [place] [address], [address], [place], [address], Insurance Providers Payer Name Payer Address Payer Phone Subscriber Number Group Number Insured Name Patient Relationship to Insured Coverage Start Date Coverage End Date O [employer] CLAIMS [address] [place] [address] [id number] ROB CARREON Self - patient is the insured Medical (General) History Medical History History ICD Code Denies CA,DM,CVA,Lung disease,renal dise ase HTN Discrete episodes of [...]
== END 2024-12-26 13:59 | disposition home or self-care (01) ==
LOC: HO.HMGCX 13:58
PROVIDERS: PCP Internal Medicine; Visit Provider Internal Medicine
DX: M79.622 Pain in left upper arm (principal); N50.82 Scrotal pain; I86.1 Scrotal varices
CPT/HCPCS: 76870; 76882

== ENCOUNTER → 2024-12-26 14:01 | Outpatient (BNV) | payer BC, SELFPAY | PROVIDERS: PCP Internal Medicine; Visit Provider Radiology Diagnostic Radiology | DX: M79.622 Pain in left upper arm (principal) | CPT/HCPCS: 76882 ==

== ENCOUNTER 2025-06-03 08:59 | Outpatient (REF) | payer BC, SELFPAY ==
--- OUTSIDE RECORDS SUMMARY | 2024-10-11 05:30 | XMS_ITS ---
Author Organization [facility] Address [address] [place] [address] Care Team Providers Care Fire Manager Name Role Phone Carlos Cole MD Primary Care Provider Ke Owen [phone] REASON FOR VISIT screening Encounters Encounter Location Date Provider Diagnosis [facility] [address] [address] [place], [place] [phone] 10/11/2024 Ke Knowles Colon cancer scree mitch Z12.11 ; Family history of colon cancer Z80.0 ; Colon polyps K63.5 and Other hemorrhoids K64.8 Assessments Encounter Date Diagnosis (ICD Code) Assessment Notes Treatment Notes Treatment Clinical Notes Section Notes 10/11/2024 Colon cancer screening (ICD-10 - Z12.11) 10/11/2024 Family history of colon cancer (ICD-10 - Z80.0) 10/11/2024 Colon polyps (ICD-10 - K63.5) 10/11/2024 Other hemorrhoids (ICD-10 - K64.8) Plan Of Treatment Next Appt Details Provider Name:Ke Knowles , 11/12/2025 04:20:00 PM, [address], [address], [place], [address], Progress Notes * ROB BROOKE MDOB:1980 (44 yo M)Acc No.[id number]:10/11/2024 COLON WITH MAC Patient: Shar CHENROB Provider: Washington Knowles MD :1980 A ge:44 Y S ex:Male Date:10/11/2024 Address:[address] [place] [address] Pcp:Carlos Cole MD Subjective: * Chief Complaints: * 1 . Screening. * Medical History: Objective: * Vitals: Assessment: * Assessment: 1. C olon cancer screening - Z12.11 (Primary) 2 . F amily history of colon cancer - Z80.0 3 . C olon polyps - K63.5 4 . O ther hemorrhoids - K64.8 Plan: * Treatment: * Procedure Codes: 4 5385 LESION REMOVAL COLONOSCOPY, Modifiers: PT * * The named appointment provid er may or may not be the originator of this progress note, and it is not deemed complete until electronically signed by the appointment provider. Sign off status: Pending * Provider: Washington Knowles MD Date: 0 10/11/2024 Generated for Diana dupont/Tiera/Ashleyitting on: 1 09:38 AM EDT
--- OUTSIDE RECORDS SUMMARY | 2025-05-14 12:00 | XMS_ITS ---
Author Organization [facility] Address [address] [place] [address] Care Team Providers Care [employer] End [employer] Grinder Name Role Phone Carlos Cole MD Primary Care Provider Ke Owen Unavailable [phone] REASON FOR VISIT Patient presents today for elevated lft's Medications Medication SIG (Take, Route, Frequency, Duration) Notes Start Date End Date Status Lisinopril 10 MG 1 tablet Orally Once a day; Duration: 30 day(s) Active Omeprazole 40 MG 1 Orally Once a day every morning; Duration: 30 day(s) 03/21/2024 Active amLODIPine Besylate 5 MG TAKE 1 TABLET BY MOUTH DAILY Oral; Duration: 90 I10,Unavailable Active Immunizations Vaccine Route Administration Date Status Comme nts Influenza Unknown 05/14/2025 Refused Social History Tobacco Use: Social History Observation Description Date Details (start date - stop date) Former Smoker NA - NA Alcohol Screen Question Answer Notes Did you [...] monthly (1 point) Points 3 Interpretation Negative Tobacco Control (Standard) Question Answer Notes Tobacco use: Former smoker Section Notes: Smoker; occasional alcohol 1 -2 times per month Problems Problem Type SNOMED Code ICD Code Onset Dates Problem Status W/U Status Risk Notes Problem Gastroesophageal reflux disease (243207737) GERD (gastroeso phageal reflux disease) (K21.9) Active confirmed Vital Signs Temperature 97.8 degrees Fahrenheit 05/14/20 25 Blood pressure systolic 001 mm Hg 05/14/20 25 Blood pressure diastolic 01 mm Hg 025 Height 70 in 05/14/2025 Weight 226.4 lbs 05/14/2025 BMI 32.48 kg/m2 05/14/2025 Encounters Encounter Location Date Provider Diagnosis [facility] [address] [place] [address] 05/14/2025 Ke Knowles Family history of colon cancer Z80.0 ; Elevated liver function tests R94.5 ; Encounter for screening for malignant neoplasm of colon Z12.11 ; Fatty liver K76.0 and GERD (gastroesophageal reflux disease) K21.9 Assessments Encounter Date Diagnosis (ICD Code) Assessment Notes Treatment Notes Treatment Clinical Notes Section Notes 05/14/2025 Family history of colon cancer (ICD-10 - Z80.0) Overall, Rob appears well. Symptomatically he seems to be much improved in regard to a lot of his previous constitutional symptoms and other somatic complaints including his reflux, abdominal discomfort, and fatigue. We did review that his healthier lifestyle with avoidance of smoking, trying to eat healthier, and minimizing alcohol use, are definitely helping with those issues and he should certainly continue that. I did advise him to continue his omeprazole for his chronic reflux as that seems to be helping from a symptomatic standpoint as well. We did review the findings on his colonoscopy and the need for a follow-up colonoscopy in 5 years given the family history of colon cancer in his mother at a relatively early age. In regard to his elevated LFTs and fatty liver we did review that in detail and the importance of following things closely in that regard. We did review that fatty liver can certainly progress to cause liver damage with its associated increased morbidity and mortality, particularly if there is the progression to cirrhosis. Therefore I advised him of the importance of trying to eliminate alcohol completely, continuing to eat healthy, and trying to lose a little weight. 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 I did advise him to review this carefully with his to be sure none of the herbs would cause any adverse reaction in regard to his liver. In the meantime I shall check a new baseline liver profile today such that when I see him next Spring we can have a another liver profile at that point to see if his continued healthy lifestyle and addition of any potential helpful herbs will have helped his LFTs to improve. I also advised him that I will check a hemoglobin A1c to rule out any occult underlying diabetes that might be contributing to his ongoing elevated LFTs and fatty liver. We did review that if the significant elevation of the LFTs persist when I see him in next Spring I would then be inclined to consider a liver biopsy to make a definitive assessment of his liver histology and then decide about other treatment such as ursodiol. I did advise Rob to contact me prior to his next appointment next spring if he has any problems or questions I can be of assistance with. Rob was very comfortable with this plan. Thank you again for allowing me to participate in Rob's care. I shall continue to keep you advised of his progress.. 05/14/2025 Elevated liver function tests (ICD-10 - R94.5) Overall, Rob appears well. Symptomatically he seems to be much improved in regard to a lot of his previous constitutional symptoms and other somatic complaints including his reflux, abdominal discomfort, and fatigue. We did review that his healthier lifestyle with avoidance of smoking, trying to eat healthier, and minimizing alcohol use, are definitely helping with those issues and he should certainly continue that. I did advise him to continue his omeprazole for his chronic reflux as that seems to be helping from a symptomatic standpoint as well. We did review the findings on his colonoscopy and the need for a follow-up colonoscopy in 5 years given the family history of colon cancer in his mother at a relatively early age. In regard to his elevated LFTs and fatty liver we did review that in detail and the importance of following things closely in that regard. We did review that fatty liver can certainly progress to cause liver damage with its associated increased morbidity and mortality, particularly if there is the progression to cirrhosis. Therefore I advised him of the importance of trying to eliminate alcohol completely, continuing to eat healthy, and trying to lose a little weight. 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 I did advise him to review this carefully with his to be sure none of the herbs would cause any adverse reaction in regard to his liver. In the meantime I shall check a new baseline liver profile today such that when I see him next Spring we can have a another liver profile at that point to see if his continued healthy lifestyle and addition of any potential helpful herbs will have helped his LFTs to improve. I also advised him that I will check a hemoglobin A1c to rule out any occult underlying diabetes that might be contributing to his ongoing elevated LFTs and fatty liver. We did review that if the significant elevation of the LFTs persist when I see him in next Spring I would then be inclined to consider a liver biopsy to make a definitive assessment of his liver histology and then decide about other treatment such as ursodiol. I did advise Rob to contact me prior to his next appointment next spring if he has any problems or questions I can be of assistance with. Rob was very comfortable with this plan. Thank you again for allowing me to participate in Rob's care. I shall continue to keep you advised of his progress.. 05/14/2025 Encounter for screening for malignant neoplasm of colon (ICD-10 - Z12.11) Overall, Rob appears well. Symptomatically he seems to be much improved in regard to a lot of his previous constitutional symptoms and other somatic complaints including his reflux, abdominal discomfort, and fatigue. We did review that his healthier lifestyle with avoidance of smoking, trying to eat healthier, and minimizing alcohol use, are definitely helping with those issues and he should certainly continue that. I did advise him to continue his omeprazole for his chronic reflux as that seems to be helping from a symptomatic standpoint as well. We did review the findings on his colonoscopy and the need for a follow-up colonoscopy in 5 years given the family history of colon cancer in his mother at a relatively early age. In regard to his elevated LFTs and fatty liver we did review that in detail and the importance of following things closely in that regard. We did review that fatty liver can certainly progress to cause liver damage with its associated increased morbidity and mortality, particularly if there is the progression to cirrhosis. Therefore I advised him of the importance of trying to eliminate alcohol completely, continuing to eat healthy, and trying to lose a little weight. 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 I did advise him to review this carefully with his to be sure none of the herbs would cause any adverse reaction in regard to his liver. In the meantime I shall check a new baseline liver profile today such that when I see him next Spring we can have a another liver profile at that point to see if his continued healthy lifestyle and addition of any potential helpful herbs will have helped his LFTs to improve. I also advised him that I will check a hemoglobin A1c to rule out any occult underlying diabetes that might be contributing to his ongoing elevated LFTs and fatty liver. We did review that if the significant elevation of the LFTs persist when I see him in next Spring I would then be inclined to consider a liver biopsy to make a definitive assessment of his liver histology and then decide about other treatment such as ursodiol. I did advise Rob to contact me prior to his next appointment next spring if he has any problems or questions I can be of assistance with. Rob was very comfortable with this plan. Thank you again for allowing me to participate in Rob's care. I shall continue to keep you advised of his progress.. 05/14/2025 Fatty liver (ICD-10 - K76.0) Overall, Rob appears well. Symptomatically he seems to be much improved in regard to a lot of his previous constitutional symptoms and other somatic complaints including his reflux, abdominal discomfort, and fatigue. We did review that his healthier lifestyle with avoidance of smoking, trying to eat healthier, and minimizing alcohol use, are definitely helping with those issues and he should certainly continue that. I did advise him to continue his omeprazole for his chronic reflux as that seems to be helping from a symptomatic standpoint as well. We did review the findings on his colonoscopy and the need for a follow-up colonoscopy in 5 years given the family history of colon cancer in his mother at a relatively early age. In regard to his elevated LFTs and fatty liver we did review that in detail and the importance of following things closely in that regard. We did review that fatty liver can certainly progress to cause liver damage with its associated increased morbidity and mortality, particularly if there is the progression to cirrhosis. Therefore I advised him of the importance of trying to eliminate alcohol completely, continuing to eat healthy, and trying to lose a little weight. 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 I did advise him to review this carefully with his to be sure none of the herbs would cause any adverse reaction in regard to his liver. In the meantime I shall check a new baseline liver profile today such that when I see him next Spring we can have a another liver profile at that point to see if his continued healthy lifestyle and addition of any potential helpful herbs will have helped his LFTs to improve. I also advised him that I will check a hemoglobin A1c to rule out any occult underlying diabetes that might be contributing to his ongoing elevated LFTs and fatty liver. We did review that if the significant elevation of the LFTs persist when I see him in next Spring I would then be inclined to consider a liver biopsy to make a definitive assessment of his liver histology and then decide about other treatment such as ursodiol. I did advise Rob to contact me prior to his next appointment next spring if he has any problems or questions I can be of assistance with. Rob was very comfortable with this plan. Thank you again for allowing me to participate in Rob's care. I shall continue to keep you advised of his progress.. 05/14/2025 GERD (gastroesopha geal reflux disease) (ICD-10 - K21.9) Overall, Rob appears well. Symptomatically he seems to be much improved in regard to a lot of his previous constitutional symptoms and other somatic complaints including his reflux, abdominal discomfort, and fatigue. We did review that his healthier lifestyle with avoidance of smoking, trying to eat healthier, and minimizing alcohol use, are definitely helping with those issues and he should certainly continue that. I did advise him to continue his omeprazole for his chronic reflux as that seems to be helping from a symptomatic standpoint as well. We did review the findings on his colonoscopy and the need for a follow-up colonoscopy in 5 years given the family history of colon cancer in his mother at a relatively early age. In regard to his elevated LFTs and fatty liver we did review that in detail and the importance of following things closely in that regard. We did review that fatty liver can certainly progress to cause liver damage with its associated increased morbidity and mortality, particularly if there is the progression to cirrhosis. Therefore I advised him of the importance of trying to eliminate alcohol completely, continuing to eat healthy, and trying to lose a little weight. 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 I did advise him to review this carefully with his to be sure none of the herbs would cause any adverse reaction in regard to his liver. In the meantime I shall check a new baseline liver profile today such that when I see him next Spring we can have a another liver profile at that point to see if his continued healthy lifestyle and addition of any potential helpful herbs will have helped his LFTs to improve. I also advised him that I will check a hemoglobin A1c to rule out any occult underlying diabetes that might be contributing to his ongoing elevated LFTs and fatty liver. We did review that if the significant elevation of the LFTs persist when I see him in next Spring I would then be inclined to consider a liver biopsy to make a definitive assessment of his liver histology and then decide about other treatment such as ursodiol. I did advise Rob to contact me prior to his next appointment next spring if he has any problems or questions I can be of assistance with. Rob was very comfortable with this plan. Thank you again for allowing me to participate in Rob's care. I shall continue to keep you advised of his progress.. Plan Of Treatment Pending Test Test Name Order Date LIVER PROFILE 05/14/2025 Hemoglobin A1c 05/14/2025 Next Appt Details Follow Up: 6 Months, Reason: Provider Name:Ke Susana Knowles , 11/12/2025 04:20:00 PM, [address] [place] [address], [address], [place], [address], Progress Notes * ROB BROOKE MDOB:1980 (44 yo M)Acc No.[id number]:05/14/2025 Progress Notes Patient: ROB BOURNE Provider: Washington Knowles MD :1980 A ge:44 Y S ex:Male Date:05/14/2025 Address:[address] [place], [place] [id number] Pcp:Carlos Cole MD Subjective: * Chief Complaints: * 1 . Patient presents today for elevated lft's. * HPI: i ncontinence: I saw Rob in follow-up today in regard to his underlying history of elevated LFTs in relation to fatty liver, gastroesophageal reflux, and discussion of colorectal cancer screening. I last saw Rob in September, at which time he underwent a screening colonoscopy in regard to his family history of colon cancer. This revealed only a single hyperplastic polyp that was removed. Since that time he reports that he has been feeling well in general and without any specific GI complaints. He has continued to try to eat healthier, has not been smoking for about 3 months now and has rarely used any alcohol. He does think that leading a healthier lifestyle in general has helped him to feel a lot better. He enjoys a good appetite and denies any significant heartburn or dysphagia at this time. He denies any abdominal pain, jaundice, nor any unintentional weight loss. He reports that his bowel movements have been fairly regular and without any hematochezia nor melena. He denies any increasing abdominal girth, edema, pruritus, nor fatigue. His most recent labs I have available from November included a normal CBC, sed rate of 6, CRP of 0.3, normal chemistries and renal function, random glucose of 129, Ferritin of 199, albumin 4.6, total bilirubin 1.2, AST 86, ALT 135, and a normal alkaline phosphatase. * Medical History: D enies [place],DM,CVA,Lung disease,renal disease, HTN, Discrete episodes of nausea, diarrhea, and some [...] due to a lab error was not performed., EGD in 03/2020- small hiatal hernia, otherwise normal exam- biopsies from the duodenum were negative for celiac disease and Giardia, biopsies from the stomach were negative for H. pylori, and biopsies from the esophagus were negative for Dixon's esophagus, Colonoscopy in 03/2020 revealed an inflammatory polyp and hyperplastic polyp, both of which were removed; there was no evidence of any inflammatory bowel disease; biopsies from the colon were negative for any underlying microscopic colitis, Upper endoscopy in [address] Fox for evaluation of left upper quadrant pain was completely negative including duodenal, gastric, and esophageal biopsies, Abdominal ultrasound and abdominal MRI in 2022 revealed some fatty liver and slight splenomegaly, but was otherwise unremarkable, Fatty liver and elevated LFTs in 2022 with a negative limited workup other than iron saturation of 50% and ferritin of a 415. 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 * Family History: F ather: . M other: , diagnosed with Colon cancer. The patient's mother from colon cancer at the age of 63. She was diagnosed at age 59. No other known family history of colon cancer, IBD, nor celiac disease. No family history of liver cancer. * Social History: T obacco Use: T obacco Control (Standard) T obacco use: F ormer smoker. D rugs/Alcohol: A lcohol Screen D id you have a drink containing alcohol in the past year? Y es, H ow often did you have a drink containing alcohol in the past year? 2 to 4 times a month (2 points), H ow many drinks did you have on a typical day when you were drinking in the past year??1 or 2 drinks (0 point), H ow often did you have 6 or more drinks on one occasion in the past year? L ess than monthly (1 point), P oints 3 , I nterpretation N egative. M iscellaneous: M arital status: . 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 S moker; occasional alcohol 1-2 times per month. * Medications: T aking Lisinopril 10 MG Tablet 1 tablet Orally Once a day , Taking amLODIPine Besylate 5 MG Tablet TAKE 1 TABLET BY MOUTH DAILY Oral , Notes to Pharmacist: I10,Unavailable, Taking Omeprazole 40 MG Capsule Delayed Release 1 Orally Once a day every morning , Medication List reviewed and reconciled with the patient Objective: * Vitals: W t:226.4lbs, Ht: 70 in, BMI:32.48Index, BP:001/01mm Hg, Temp:97.8, Wt-k.69. Assessment: * Assessment: 1. E levated liver function tests - R94.5 (Primary) 2 . F amily history of colon cancer - Z80.0 3 . E ncounter for screening for malignant neoplasm of colon - Z12.11 4 . F atty liver - K76.0 5 . G ERD (gastroesophageal reflux disease) - K21.9 Overall, Rob appears well. Symptomatically he seems to be much improved in regard to a lot of his previous constitutional symptoms and other somatic complaints including his reflux, abdominal discomfort, and fatigue. We did review that his healthier lifestyle with avoidance of smoking, trying to eat healthier, and minimizing alcohol use, are definitely helping with those issues and he should certainly continue that. I did advise him to continue his omeprazole for his chronic reflux as that seems to be helping from a symptomatic standpoint as well. We did review the findings on his colonoscopy and the need for a follow-up colonoscopy in 5 years given the family history of colon cancer in his mother at a relatively early age. In regard to his elevated LFTs and fatty liver we did review that in detail and the importance of following things closely in that regard. We did review that fatty liver can certainly progress to cause liver damage with its associated increased morbidity and mortality, particularly if there is the progression to cirrhosis. Therefore I advised him of the importance of trying to eliminate alcohol completely, continuing to eat healthy, and trying to lose a little weight. 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 I did advise him to review this carefully with his to be sure none of the herbs would cause any adverse reaction in regard to his liver. In the meantime I shall check a new baseline liver profile today such that when I see him next Spring we can have a another liver profile at that point to see if his continued healthy lifestyle and addition of any potential helpful herbs will have helped his LFTs to improve. I also advised him that I will check a hemoglobin A1c to rule out any occult underlying diabetes that might be contributing to his ongoing elevated LFTs and fatty liver. We did review that if the significant elevation of the LFTs persist when I see him in next Spring I would then be inclined to consider a liver biopsy to make a definitive assessment of his liver histology and then decide about other treatment such as ursodiol. I did advise Rob to contact me prior to his next appointment next spring if he has any problems or questions I can be of assistance with. Rob was very comfortable with this plan. Thank you again for allowing me to participate in Rob's care. I shall continue to keep you advised of his progress.. Plan: * Treatment: 2. F atty liver L AB: LIVER PROFILE L AB: Hemoglobin A1c * Immunizations: Influenza (Not administered - Refused: Patient decision) * Follow Up: 6 Months * * The named appointment provid er may or may not be the originator of this progress note, and it is not deemed complete until electronically signed by the appointment provider. Sign off status: Pending * Provider: Washington Knowles MD Date: Generated for Diana dupont/Tiera/Marge on: 09:38 AM EDT History and Physical Notes * HPI (History of Present Illness) Category Sub-Category Detail Notes Category Not es incontinence I saw Rob in follow-up today in regard to his underlying history of elevated LFTs in relation to fatty liver, gastroesophageal reflux, and discussion of colorectal cancer screening. I last saw Rob in September, at which time he underwent a screening colonoscopy in regard to his family history of colon cancer. This revealed only a single hyperplastic polyp that was removed. Since that time he reports that he has been feeling well in general and without any specific GI complaints. He has continued to try to eat healthier, has not been smoking for about 3 months now and has rarely used any alcohol. He does think that leading a healthier lifestyle in general has helped him to feel a lot better. He enjoys a good appetite and denies any significant heartburn or dysphagia at this time. He denies any abdominal pain, jaundice, nor any unintentional weight loss. He reports that his bowel movements have been fairly regular and without any hematochezia nor melena. He denies any increasing abdominal girth, edema, pruritus, nor fatigue. His most recent labs I have available from November included a normal CBC, sed rate of 6, CRP of 0.3, normal chemistries and renal function, random glucose of 129, Ferritin of 199, albumin 4.6, total bilirubin 1.2, AST 86, ALT 135, and a normal alkaline phosphatase.
--- OUTSIDE RECORDS SUMMARY | 2025-06-03 09:38 | XMS_ITS | Clinical Summary ---
Author Organization [facility] Address [address] [id number] Phone Care Team Providers Care Pattern Clerk Name Role Phone Carlos Cole MD Primary Care Provider [phone] Social History Tobacco Use Types Packs/Day Years Used Date Smoking Tobacco: Never Assessed Education Answer Date Recorded Are you interested in more education? Not on miryam e 12/09/2022 Are you concerned about learning? Not on file 12/09/2022 No 12/09/2022 No 12/09/2022 Digital Access Answer Date Recorded No 01/10/2023 No 01/10/2023 Reliable internet access at home? Not on file 01/10/2023 Device with a working camera? Not on file Sex and Gender Information Value Date Recorded Sex Assigned at Not on file Legal Sex Male 5:16 PM EST Gender Identity Not on file Sexual Orientation Not on file Plan of Treatment Not on file Medical Devices Not on file Insurance [facility] POS [place] [address] [place] [address] [place] [address] [place] [id number] [place] [address] [place] [address] HMO [place] [address] [place] [address] [place] [address] [place] [address] HMO POS [facility] HMO POS Care Teams Pattern Clerk Relationship Specialty Start Date End Date Carlos Cole MD [facility] [address] [place] [phone] PCP - General Internal Medicine 06/26/20 Additional Source Comments The information contained in this document represents components of the legal health record. It is not the complete legal health record.[facility]
--- OUTSIDE RECORDS SUMMARY | 2025-06-03 09:39 | XMS_ITS | Patient Health Record ---
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 Name Role Phone Carlos Cole MD Primary Care Provider Ke Owen Unavailable [phone] Allergies No Known Allergies Results Component Value Reference Range Notes Liver Panel Reviewed date:10/11/2024 05:27:38 PM Interpretation: Performing Lab:[facility], [address] [place] [phone] Notes/Report: Bilirubin Total 1.6 0.0-1.0 mg/dL Bilirubin Direct 0.5 0.0-0.5 mg/dL Aspartate Amino Transferase 58 5-37 U/L Alanine Aminotransferase 128 0-40 U/L Total Protein 8.0 6.5-8.0 g/dL Albumin Level 4.8 3.5-5.0 g/dL Alkaline Phosphatase 77 39-117 U/L Drug Screen Urine Reviewed date:10/11/2024 05:17:48 PM Interpretation: Performing Lab:[facility], [address] [place] [phone] Notes/Report: Opiate Screen Urine Not Detected Not [...] Pathology Reviewed date:12/04/2024 04:29:09 PM Interpretation: Performing Lab:[address] [phone] Notes/Report: Complete Blood Count Auto Di ff Reviewed date:12/04/2024 04:22:16 PM Interpretation: Performing Lab:[facility], [address] [place] [phone] Notes/Report: White Blood Count 6.2 4.8-10.8 X10*3/uL [...] 0.0-0.2 /100WBC Neutrophils Absolute Auto 3.0 2.0-8.3 x10*3/u L Imm Gran Abs Auto 0.01 0.00-0.03 X10*3/uL Lymphocytes Absolute Auto 2.6 1.2-4.9 X10*3/u L Monocytes Absolute Auto 0.4 0.1-1.2 X10*3/uL Eosinophils Absolute Auto 0.2 0.0-0.4 X10*3/u L Basophils Absolute Auto 0.0 0.0-0.2 X10*3/uL NRBC Abs Auto 0.000 0.0-0.012 X10*3/uL Erythrocyte Sedimentation Ra te Reviewed date:12/04/2024 12:42:53 PM Interpretation: Performing Lab:[address] [phone] Notes/Report: Erythrocyte Sedimentation Rate 6 0-15 MM/HR Patients with polycythemia and many hemoglobin abnormalities may have depressed sed rates whereas patients with anemia may have elevated sed rates. Comprehensive Met. Panel (No t yet reviewed by provider) Interpretation: Performing Lab:[facility], [address] [place] [phone] Notes/Report: Sodium 142 135-145 mmol/L Potassium 4.0 [...] Ferritin Reviewed date:12/04/2024 04:21:53 PM Interpretation: Performing Lab:[facility], [address] [place] [phone] Notes/Report: Ferritin 199 20-250 ng/mL Lactate Dehydrogenase Reviewed date:12/04/2024 04:21:20 PM Interpretation: Performing Lab:[facility], [address] [place] [phone] Notes/Report: Lactate Dehydrogenase 225 118-273 U/L C Reactive Protein Reviewed date:12/04/2024 04:21:07 PM Interpretation: Performing Lab:[facility], [address] [place] [phone] Notes/Report: C Reactive Protein 0.26 < or = 0.50 mg/dL Brittany-Lundberg Virus Profile Reviewed date:12/06/2024 01:51:31 PM Interpretation: Performing Lab:[facility], [address] [place] [phone] Notes/Report: EBV-VCA IgG Ab >750.00 U/mL Interpretation [...] of antibody. THIS TEST WAS PERFORMED AT: [facility] [address] [place] [phone] ESPERANZA OFRBES MD Cytomegalovirus Ab (IgG, IgM ) Reviewed date:12/06/2024 01:51:56 PM Interpretation: Performing Lab:[address] [phone] Notes/Report: Cytomegalovirus Ab IgG <0.60 U/mL Interpretation [...] more weeks. THIS TEST WAS PERFORMED AT: [facility] [address] [place] [phone] ESPERANZA FORBES MD Hepatitis B Profile Reviewed date:12/04/2024 04:20:57 PM Interpretation: Performing Lab:[address] [phone] Notes/Report: Hepatitis B Surface Antibody NONREACTIVE Nonreactive Nonreactive: < 8.00 mIU/mL Hepatitis B Core Antibody Nonreactive Nonreactive Hepatitis B Surface Antigen Negative Negative RPR Monitor reflex titer Reviewed date:12/06/2024 01:50:45 PM Interpretation: Performing Lab:[address] [phone] Notes/Report: RPR Rapid Plasma Reagin NON-REACTIVE NON-REACTIVE THIS TEST WAS PERFORMED AT: [facility] [address] [place] [phone] ESPERANZA FORBES MD Rapid Plasma Reagin Ab Titer TNP Hepatitis C Antibody Reflex Reviewed date:12/04/2024 04:19:07 PM Interpretation: Performing Lab:[facility], [address] [facility], [place] [address] Notes/Report: Hepatitis C Antibody Nonreactive Nonreactive Antibodies to HCV not detected; does not exclude early acute HCV infection. Reason For Referral Referring Provider First Name Carlos Referring Provider Last Name Po Referring Provider Speciality Internal M edicine Referred Organization [facility] Referred Provider Ke Knowles Referred Address [address] [facility] [address],[place], [place],[address], Referred Provider Specialty Gastroentero logy General Notes Nancy Baron 2024 10:22:28 AM >requested [place] [facility] [place] for visit with Dr. Knowles on [phone] Dr cole Referral Priority Routine Medications Medication [...] Unknown 02/04/2020 Refused Influenza Unknown 01/31/2024 Refused Influenza Unknown 05/14/2025 Refused Social History Tobacco [...] occasional alcohol 1 -2 times per month Nonsmoker; occasional binge drinker 1-2 times per month Nonsmoker; occasional binge drinker 1-2 times per month Smoker; occasional alcohol 1 -2 times per month Smoker; occasional alcohol 1 -2 times per month Problems Problem Type SNOMED Code ICD Code Onset Dates Problem Status W/U Status Risk Notes Problem Screening for malignant neoplasm of colon (121915021) Encounter for screening for malignant neoplasm of colon (Z12.11) Active confirmed Problem Diarrhea (80805014) Diarrhea (R19.7) Active con firmed Problem Nausea and vomiting (32300512) Nausea with vomiting, unspecified (R11.2) Active confirmed Problem Fatty liver (083393882) Fatty liver (K76.0) Active confirmed Problem Family History of Cancer of Colon (Situation) (716362451) Family history of colon cancer (Z80.0) Active confirmed Problem Abnormal upper gastrointestinal barium series (R93.3) Active confirmed Problem Iron excess (36745013) Iron excess (E83.19) Active confirmed Problem Left upper quadrant pain (126921729) Abdominal pain, LUQ (R10.12) Active confirmed Problem Gastroesophageal reflux disease (069289664) GERD (gastroesophageal reflux disease) (K21.9) Active confirmed Problem Computed tomography of abdomen abnormal (33593557696613989) Abnormal CT scan, stomach (R93.3) Active confirmed Problem Odynophagia (82101398) Odynophagia (R13.10) Active confirmed Problem Diarrhea (08800135) Diarrhea, unspecified type (R19.7) Active confirmed Problem Elevated liver enzymes level (573299209) Elevated liver function tests (R94.5) Active confirmed Problem Vomiting without nausea (803733876462409) Non-intractable vomiting without nausea, unspecified vomiting type (R11.11) Active confirmed Problem Family history of malignant neoplasm of gastrointestinal tract (785607685) Family history of colon cancer in mother (Z80.0) Active confirmed Problem Splenomegaly (66559159) Splenomegaly (R16.1) Active confirmed Problem Gastroesophageal reflux disease (disorder) (753898928) Chronic GERD (K21.9) Active confirmed Vital Signs Temperature 97.8 degrees Fahrenheit 05/14/2025 Blood pressure diastolic 01 mm Hg 05/14/2025 Height 70 in 05/14/2025 Blood pressure systolic 001 mm Hg 05/14/2025 Weight 226.4 lbs 05/14/2025 BMI 32.48 kg/m2 05/14/2025 Encounters Encounter Location Date Provider Diagnosis [facility] [address], [place] [phone] 10/11/2024 Ke Knowles Colon cancer screening Z12.11 ; Family history of colon cancer Z80.0 ; Colon polyps K63.5 and Other hemorrhoids K64.8 [facility] [address] [place] [address] 05/14/2025 Ke Knowles Family history of colon cancer Z80.0 ; Elevated liver function tests R94.5 ; Encounter for screening for malignant neoplasm of colon Z12.11 ; Fatty liver K76.0 and GERD (gastroesophageal reflux disease) K21.9 [facility] [address] [place] [address] 06/12/2024 Ke Knowles Family history of colon cancer Z80.0 ; Fatty liver K76.0 ; Encounter for screening for malignant neoplasm of colon Z12.11 and Chronic GERD K21.9 Assessments Encounter Date Diagnosis (ICD Code) Assessment Notes Treatment Notes Treatment Clinical Notes Section Notes 10/11/2024 Colon cancer screening (ICD-10 - Z12.11) 10/11/2024 Family history of colon cancer (ICD-10 - Z80.0) 05/14/2025 Family history of colon cancer (ICD-10 - Z80.0) Overall, Barndon appears well. Symptomatically he seems to be [...] treatment such as ursodiol. I did advise Brandon to contact me prior to his next appointment next spring if he has any problems or questions I can be of assistance with. Brandon was very comfortable with this plan. Thank you again for allowing me to participate in Brandon's care. I shall continue to keep you advised of his progress.. 05/14/2025 Elevated liver function tests (ICD-10 - R94.5) Overall, Brandon appears well. Symptomatically he seems to be [...] treatment such as ursodiol. I did advise Brandon to contact me prior to his next appointment next spring if he has any problems or questions I can be of assistance with. Brandon was very comfortable with this plan. Thank you again for allowing me to participate in Brandon's care. I shall continue to keep you advised of his progress.. 06/12/2024 Fatty liver (ICD-10 - K76.0) Try to lose some weight and eat healthy to help the fatty liver. Avoid alcohol as well. Overall, Brandon appears well from a clinical standpoint. We [...] show it to his and his son's gun tester. We reviewed that gene is fairly common [...] he can decrease the omeprazole to the aqnn-znl-zyyfljy 20 mg dose as long as it [...] will be done with monitored anesthesia care. Brandon was comfortable with this plan. Thank you again for allowing me to participate in Brandon's care. I shall continue to keep you advised of his progress. 06/12/2024 Family history of colon cancer (ICD-10 - Z80.0) Overall, Brandon appears well from a clinical standpoint. We [...] show it to his and his son's gun tester. We reviewed that gene is fairly common [...] he can decrease the omeprazole to the atko-uic-rjkxscs 20 mg dose as long as it [...] will be done with monitored anesthesia care. Brandon was comfortable with this plan. Thank you again for allowing me to participate in Brandon's care. I shall continue to keep you advised of his progress. 10/11/2024 Colon polyps (ICD-10 - K63.5) 05/14/2025 Encounter for screening for malignant neoplasm of colon (ICD-10 - Z12.11) Overall, Brandon appears well. Symptomatically he seems to be [...] treatment such as ursodiol. I did advise Brandon to contact me prior to his next appointment next spring if he has any problems or questions I can be of assistance with. Brandon was very comfortable with this plan. Thank you again for allowing me to participate in Brandon's care. I shall continue to keep you advised of his progress.. 06/12/2024 Encounter for screening for malignant neoplasm of colon (ICD-10 - Z12.11) Overall, Brandon appears well from a clinical standpoint. We [...] show it to his and his son's gun tester. We reviewed that gene is fairly common [...] he can decrease the omeprazole to the [id number]-[id number] 20 mg dose as long as it [...] will be done with monitored anesthesia care. Brandon was comfortable with this plan. Thank you again for allowing me to participate in Brandon's care. I shall continue to keep you advised of his progress. 10/11/2024 Other hemorrhoids (ICD-10 - K64.8) 05/14/2025 Fatty liver (ICD-10 - K76.0) Overall, Brandon appears well. Symptomatically he seems to be [...] treatment such as ursodiol. I did advise Brandon to contact me prior to his next appointment next spring if he has any problems or questions I can be of assistance with. Brandon was very comfortable with this plan. Thank you again for allowing me to participate in Brandon's care. I shall continue to keep you advised of his progress.. 06/12/2024 Chronic GERD (ICD-10 - K21.9) Minimize coffee and stop smoking to help the reflux. Use the Omeprazole as needed or daily, the 20 or 40mg. Overall, Brandon appears well from a clinical standpoint. We [...] show it to his and his son's gun tester. We reviewed that gene is fairly common [...] he can decrease the omeprazole to the qusm-edj-kfnsbio 20 mg dose as long as it [...] will be done with monitored anesthesia care. Brandon was comfortable with this plan. Thank you again for allowing me to participate in Brandon's care. I shall continue to keep you advised of his progress. 05/14/2025 GERD (gastroesophage al reflux disease) (ICD-10 - K21.9) Overall, Brandon appears well. Symptomatically he seems to be [...] treatment such as ursodiol. I did advise Brandon to contact me prior to his next appointment next spring if he has any problems or questions I can be of assistance with. Brandon was very comfortable with this plan. Thank you again for allowing me to participate in Brandon's care. I shall continue to keep you advised of his progress.. Plan Of Treatment Pending Test Test Name Order Date CHEM 7 PROFILE 01/31/2024 LIVER PROFILE 06/12/2024 LIVER PROFILE 05/14/2025 IRON + IBC (FE) 01/31/2024 CBC w [...] US abdomen comp w elastography Hemoglobin A1c 05/14/2025 Hemoglobin A1c 01/31/2024 Future Test Test Name Order Date UPPER GI ENDOSCOPY 02/06/2020 COLONOSCOPY 02/06/2020 COLONOSCOPY 06/12/2024 Next Appt Details Provider Name:Ke Knowles , 11/12/2025 04:20:00 PM, [address], [address], [place], [address], Insurance Providers Payer Name Payer Address Payer Phone Subscriber Number Group Number Insured Name Patient Relationship to Insured Coverage Start Date Coverage End Date [facility] CLAIMS [address] [place] [address] [id number]OOKE Self - patient is the insured Medical (General) History Medical History History ICD Code Denies [place],DM,CVA,Lung disease,renal dise ase HTN Discrete episodes of [...] lab error was not performed. 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
[2025-06-03 11:26] LABS: Alanine Aminotransferase 128 U/L (0-40); Albumin Level 4.9 g/dL (3.5-5.0); Alkaline Phosphatase 74 U/L (39-117); Aspartate Amino Transferase 56 U/L (5-37); Total Protein 7.5 g/dL (6.5-8.0)
== END 2025-06-03 09:00 | disposition home or self-care (01) ==
LOC: HO.LAB 08:59
PROVIDERS: PCP Internal Medicine; Visit Provider Internal Medicine
DX: R94.5 Abnormal results of liver function studies (principal); K76.0 Fatty (change of) liver, not elsewhere classified; Z13.1 Encounter for screening for diabetes mellitus
CPT/HCPCS: 36415; 80076; 83036